=== PATIENT | female | born 1970 | race Two or more races ===

== ENCOUNTER 2018-04-04 11:56 | Emergency (ER) | payer BC ==
[~2018-04-04] VITALS: Ht 160 cm; Wt 81.2 kg
[~2018-04-04 11:56] MED LIST: CYCL10TA2 PO; HYDR-971 PO; NAPR500T8 PO
[2018-04-04 13:10] LABS: CALCIUM 9.6 mg/dL (8.5-10.1); CREATININE 0.8 mg/dL (0.6-1.0); GFR 75.9; POTASSIUM 3.7 mmol/L (3.5-5.1)
[2018-04-04 13:16] LABS: ALBUMIN 3.6 g/dL (3.4-5.0); ALBUMIN/GLOBULIN RATIO 0.8 (1.0-1.7); BASO % 0 % (0-3); EOS # 0.2 x10^3/uL (0.0-0.7); EOS % 2 % (0-3); HEMATOCRIT 40.3 % (36.0-47.0); HEMOGLOBIN 14.2 g/dL (12.0-15.5); LYMPH # 2.5 x10^3/uL (1.0-4.8); LYMPH % 24 % (24-48); MEAN CORPUSCULAR HEMOGLOBIN 29 pg (25-35); MEAN CORPUSCULAR HGB CONC 35 g/dL (31-37); MEAN CORPUSCULAR VOLUME 81 fL (79-100); MONO # 0.5 x10^3/uL (0.0-1.1); MONO % 5 % (0-9); NEUT # 7.1 x10^3uL (1.8-7.7); NEUT % 69 % (31-73); PLATELET COUNT 290 x10^3/uL (140-400); RED BLOOD COUNT 4.95 x10^6/uL (3.50-5.40); RED CELL DISTRIBUTION WIDTH 13.8 % (11.5-14.5); TOTAL BILIRUBIN 0.9 mg/dL (0.2-1.0); TOTAL PROTEIN 7.9 g/dL (6.4-8.2); WHITE BLOOD COUNT 10.4 x10^3/uL (4.0-11.0)
[2018-04-04 13:19] LABS: BILIRUBIN,URINE NEGATIVE (NEG); CLARITY,URINE CLEAR; COLOR,URINE YELLOW; NITRITE,URINE NEGATIVE (NEG); PH,URINE 5.5; PROTEIN,URINE NEGATIVE (NEG-TRACE); UROBILINOGEN,URINE 0.2 mg/dL (0.2 mg/dL)
[2018-04-04] MEDS ORDERED: CONTRAST GIVEN. MC PRN (13:30)
[2018-04-04 13:37] LABS: SQUAMOUS EPITHELIAL CELL,UR MOD /LPF
[2018-04-04 13:38] LABS: BACTERIA,URINE FEW /HPF (0-FEW); RBC,URINE 0 /HPF (0-2)
[2018-04-04] MEDS ORDERED: IOHEXOL 300 MG/ML 100ML VIAL. IV ONE (13:45)
--- NOTE | 2018-04-04 14:17 | RAD ---
EXAM: Abdomen and pelvis CT with intravenous contrast. HISTORY: Pelvic pain. Uterine fibroids. TECHNIQUE: Computed tomographic images of the abdomen and pelvis were obtained following the administration of 75 cc Omnipaque 300 intravenous contrast. Multiplanar reformatting was performed. *One or more of the following individualized dose reduction techniques were utilized for this examination: 1. Automated exposure control. 2. Adjustment of the mA and/or kV according to patient size. 3. Use of iterative reconstruction technique. COMPARISON: None. FINDINGS: Evaluation of the lower thorax demonstrates posterior dependent and basilar atelectasis. No hepatic lesion is seen. The gallbladder is surgically absent. There is a calcification along the pancreatic tail, likely vascular in etiology. The pancreas is otherwise unremarkable. The spleen, adrenal glands and kidneys are unremarkable. There is no appendicitis. There is no bowel obstruction. The uterus is retroverted and prominent in size. No discrete uterine lesion is seen. There is no lymphadenopathy. There is no suspicious osseous lesion. IMPRESSION: 1. No acute abdominal or pelvic finding. 2. Note is made that the uterus is prominent in size. Pelvic sonography may be more useful to assess for the reported history of uterine fibroids. Electronically signed by: Linh Macias MD (04/04/2018 2:14 PM) [facility]
--- NOTE | 2018-04-04 14:50 | RAD ---
Examination: CT soft tissue neck with IV contrast HISTORY: History of neck masses seen on ultrasound COMPARISON: None available Technique: Axial CT images of the soft tissue neck were performed with IV contrast. Coronal and sagittal reformats are performed Exposure: One or more of the following individualized dose reduction techniques were utilized for this examination: 1. Automated exposure control 2. Adjustment of the mA and/or kV according to patient size 3. Use of iterative reconstruction technique FINDINGS: The visualized intracranial portion grossly appears unremarkable. The visualized orbital globes appear intact. The visualized bilateral parotid glands demonstrates small subcentimeter lymph nodes within. The parapharyngeal spaces are maintained. The visualized submandibular glands, masticators spaces grossly appears unremarkable. No radiologically significant cervical lymphadenopathy identified. Small subcentimeter cervical lymph nodes identified at the level 2, level 3 region. The visualized vallecula, piriform sinuses grossly appears unremarkable visualized vocal cords appear unremarkable. There is a hypodensity identified in the right lower thyroid gland measuring 1.1 cm. The apical lungs are clear. IMPRESSION: 1. Small subcentimeter nodules identified in the bilateral parotid glands anteriorly probably lymph nodes. 2. 1.1 cm hypodensity identified in the anterior aspect of the right lobe of thyroid gland could be a nodule. Recommend ultrasound thyroid for further evaluation. Electronically signed by: Trino Jacobs MD (04/04/2018 2:47 PM) [id number]
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
[2018-04-04 15:35] VITALS: BP 122/69
== END 2018-04-04 15:58 | disposition home or self-care (01) ==
LOC: ER 11:56
DX: E04.1 Nontoxic single thyroid nodule (principal); Z90.49 Acquired absence of other specified parts of digestive tract
CPT/HCPCS: 36415; 70491; 74177; 80053; 81001; 81025; 85025; 99285; Q9967

== ENCOUNTER → 2018-05-24 | Outpatient (CLI) | payer BC ==
[~2018-05-24] MED LIST changes: +HYDR-3164 PO; -HYDR-971 PO
--- NOTE | 2018-05-24 16:32 | RAD ---
Thyroid sonogram Clinical indications: Thyroid nodule seen on CT study. FINDINGS: The longitudinal and AP and transverse dimensions of the right lobe are 4.3 cm and 1.6 cm and 1.5 cm respectively. There is a small heterogeneous hypoechoic nodule of the inferior aspect of the right lobe measuring 10 mm in size. No calcifications are seen within it. The isthmus measures 2.3 mm in thickness. The longitudinal and AP and transverse dimensions of the left lobe are 4.3 cm and 1.3 cm and 1.3 cm respectively. No left lobe thyroid nodule is evident. IMPRESSION: 10 mm nodule of the right lobe. This is a ACR TI lesion 4. Recommend a six-month follow-up sonogram. Electronically signed by: Osiel Andrade MD (05/24/2018 4:29 PM) [facility]
--- NOTE | 2018-05-25 11:35 | RAD ---
DATE: 05/24/2018 EXAM: MAMMO CHEY SCREENING BILATERAL HISTORY: Routine screening COMPARISON: None available This study was interpreted with the benefit of Computerized Aided Detection (CAD). Breast Density: HETERO The breast parenchyma is heterogenously dense, which could reduce sensitivity of mammography. Breast parenchyma level C. FINDINGS: 2-D and 3-D tomosynthesis imaging was performed in CC and MLO projections. There are numerous smooth nodules in both breasts. This pattern is typically due to benign disease such as multiple breast cysts. The largest of these on both sides lies centrally and measure approximately 15 mm. No spiculated mass or architectural distortion is evident. No suspicious microcalcifications are seen. Benign-appearing lymph node type densities are present in the left axilla. IMPRESSION: Numerous smooth bilateral breast nodules are probably cysts. Sonographic evaluation is suggested for confirmation. BI-RADS CATEGORY: 0 INCOMPLETE: NEEDS ADDITIONAL IMAGING EVALUATION AND/OR PRIOR MAMMOGRAMS FOR COMPARISON. RECOMMENDED FOLLOW-UP: ADD ADDITIONAL IMAGING PQRS compliance statement: Patient information was entered into a reminder system with a target due date for the next mammogram. Mammography is a sensitive method for finding small breast cancers, but it does not detect them all and is not a substitute for careful clinical examination. A negative mammogram does not negate a clinically suspicious finding and should not result in delay in biopsying a clinically suspicious abnormality. "Our facility is accredited by the [employer] Mammography Program."
== END | disposition home or self-care (01) ==
LOC: US 12:22
PROVIDERS: ATTEND Family Medicine
DX: Z12.31 Encounter for screening mammogram for malignant neoplasm of breast (principal); E04.1 Nontoxic single thyroid nodule
CPT/HCPCS: 76536; 77063; 77067

== ENCOUNTER → 2018-06-04 | Outpatient (CLI) | payer BC ==
--- NOTE | 2018-06-04 17:24 | RAD ---
CLINICAL INDICATION: EARNESTINE DELANEY, who is 48 years of age, presents for further evaluation of a finding noted on her screening mammographic exam of 05/24/2018 COMPARISON: Prior mammographic imaging dating back to 05/24/2018 TECHNIQUE: Grayscale and color Doppler sonographic evaluation of the bilateral breast ULTRASOUND FINDINGS: Targeted ultrasound of the mammographic area of concern was performed. Right breast: Multiple right breast hypoechoic nodules are seen, the majority of which appear to be simple cysts. Relevant lesions delineated below. 3:00 position, 5 cm from the nipple: A near anechoic mass of irregular margins and internal homogeneous low level echoes is present with parallel orientation and is of oval/round shape. There is no internal vascularity on Doppler interrogation. It demonstrates posterior acoustic enhancement and measures 0.5 x 0.6 x 0.3 cm 9:00 position, 8 cm from the nipple: A near anechoic mass of slightly irregular margins and internal homogeneous low level echoes is present with parallel orientation and is of oval/round shape. There is no internal vascularity on Doppler interrogation. It demonstrates posterior acoustic enhancement and measures 0.4 x 0.3 x 0.5 cm. Left breast: Multiple left breast hypoechoic nodules are seen, the majority of which appear to be simple cysts. Relevant lesions delineated below. 10:00 position, 6 cm from the nipple: A near anechoic mass of slightly irregular margins and internal homogeneous low level echoes is present with parallel orientation and is of oval/round shape. There is no internal vascularity on Doppler interrogation. It demonstrates posterior acoustic enhancement and measures 0.5 x 0.4 x 0.5 cm. IMPRESSION: 1. Bilateral probably benign complex cysts for which short interval imaging is recommended. RECOMMENDATION: In the absence of new clinical symptoms or change in physical exam, short term follow up diagnostic examination is recommended in 6 months to assess for interval stability. BIRADS 3: PROBABLY BENIGN Electronically signed by: Marek Grimes MD (06/04/2018 5:20 PM) [facility]
== END | disposition home or self-care (01) ==
LOC: US 10:19
PROVIDERS: ATTEND Family Medicine
DX: R92.8 Other abnormal and inconclusive findings on diagnostic imaging of breast (principal)
CPT/HCPCS: 76641

== ENCOUNTER 2018-07-17 05:49 | Inpatient (IN) | payer BC ==
[2018-07-17] VITALS (9 sets, daily range): BP systolic 93–115; BP diastolic 46–72
[~2018-07-17] VITALS: Ht 160 cm; Wt 83.5 kg
[2018-07-17 06:46] LABS: BASO # 0.1 x10^3/uL (0.0-0.2); BASO % 1 % (0-3); EOS # 0.6 x10^3/uL (0.0-0.7); EOS % 6 % (0-3); HEMATOCRIT 41.5 % (36.0-47.0); HEMOGLOBIN 14.1 g/dL (12.0-15.5); LYMPH # 2.3 x10^3/uL (1.0-4.8); LYMPH % 24 % (24-48); MEAN CORPUSCULAR HEMOGLOBIN 28 pg (25-35); MEAN CORPUSCULAR HGB CONC 34 g/dL (31-37); MEAN CORPUSCULAR VOLUME 81 fL (79-100); MONO # 0.6 x10^3/uL (0.0-1.1); MONO % 7 % (0-9); NEUT # 6.2 x10^3uL (1.8-7.7); NEUT % 63 % (31-73); PLATELET COUNT 260 x10^3/uL (140-400); RED BLOOD COUNT 5.14 x10^6/uL (3.50-5.40); RED CELL DISTRIBUTION WIDTH 13.9 % (11.5-14.5); WHITE BLOOD COUNT 9.9 x10^3/uL (4.0-11.0)
[2018-07-17] MEDS: IV RINGERS,LACTATED 1000ML 1,000 ML IV SCH ×4 (06:52→19:17)
[2018-07-17 06:54] LABS: BILIRUBIN,URINE NEGATIVE (NEG); CLARITY,URINE CLEAR; COLOR,URINE YELLOW; NITRITE,URINE NEGATIVE (NEG); PH,URINE 5.5; PROTEIN,URINE NEGATIVE (NEG-TRACE); UROBILINOGEN,URINE 0.2 mg/dL (0.2 mg/dL)
[2018-07-17 06:56] LABS: U PREG PATIENT NEGATIVE (NEG)
[2018-07-17] MEDS ORDERED: ONDANSETRON PF 4 MG/2 ML VIAL. IV PRN (07:00)
[2018-07-17] MEDS ORDERED: MORPHINE SULFATE 4 MG/ML VIAL. IV PRN (07:00)
[2018-07-17] MEDS ORDERED: HYDROmorphone 2 MG/ML VIAL IV PRN (07:00)
[2018-07-17] MEDS ORDERED: LIDOCAINE 1% PF 2 ML VIAL. ID PRN (07:00)
[2018-07-17] MEDS ORDERED: fentaNYL PF VIAL 100 MCG/2 ML VIAL IV PRN ×2 (07:00)
[2018-07-17 07:04] LABS: RBC,URINE RARE /HPF (0-2)
[2018-07-17] MEDS ORDERED: METHYLENE BLUE 1% 10 ML VIAL. ONE (07:04)
[2018-07-17] MEDS ORDERED: BUPIVAC MPF-EPI 0.5%-1:200000 30 ML VIAL. ONE (07:04)
[2018-07-17] MEDS ORDERED: LIDOCAINE 1%/EPI 1:100,000 20 ML VIAL. ONE (07:04)
[2018-07-17 07:05] LABS: BACTERIA,URINE FEW /HPF (0-FEW); SQUAMOUS EPITHELIAL CELL,UR FEW /LPF
[2018-07-17] MEDS ORDERED: PROPOFOL 20 ML IV ONE (07:25)
[2018-07-17] MEDS ORDERED: DEXAMETHASONE SOD PHOS 20 MG/5 ML VIAL. ONE (07:25)
[2018-07-17] MEDS ORDERED: KETOROLAC 30 MG/ML INJ FOR OR. INJ ONE (07:25)
[2018-07-17] MEDS ORDERED: fentaNYL PF VIAL 100 MCG/2 ML VIAL ONE (07:25)
[2018-07-17] MEDS ORDERED: LIDOCAINE 2% PF 5 ML VIAL. ONE ×2 (07:25→10:12)
[2018-07-17] MEDS ORDERED: ONDANSETRON PF 4 MG/2 ML VIAL. ONE (07:25)
[2018-07-17] MEDS ORDERED: SEVOFLURANE 61 TO 120 MINUTES. IH ONE (07:25)
[2018-07-17] MEDS ORDERED: MIDAZOLAM HCL/PF 2 MG/2 ML VIAL. ONE (07:33)
[2018-07-17] MEDS ORDERED: FAMOTIDINE 20 MG/2 ML VIAL ONE (07:33)
[2018-07-17] MEDS ORDERED: ROCURONIUM 50 MG/5 ML VIAL. ONE ×2 (09:09→10:46)
[2018-07-17] MEDS ORDERED: ESTROGENS, CONJ VAGINAL CREAM 30GM TUBE. ONE (11:31)
[2018-07-17] MEDS ORDERED: NEOSTIGMINE 10 MG/10 ML VIAL. ONE (11:54)
[2018-07-17] MEDS ORDERED: GLYCOPYRROLATE 1 MG/5 ML VIAL. ONE (11:55)
[2018-07-17] MEDS ORDERED: MORPHINE SULFATE 10 MG/ML VIAL. ONE (11:57)
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
[2018-07-17] MEDS ORDERED: SIMETHICONE 80 MG TAB.CHEW PO PRN (12:30)
[2018-07-17] MEDS ORDERED: NALOXONE 0.4 MG/ML VIAL. IV PRN (12:30)
[2018-07-17] MEDS ORDERED: MAG HYDROX/ALUMINUM HYD/SIMETH 30 ML ORAL.SUSP PO PRN (12:30)
[2018-07-17] MEDS ORDERED: DEXTROSE 50% 25 GM / 50ML DISP.SYRIN. IV PRN (12:30)
[2018-07-17] MEDS ORDERED: ZOLPIDEM 5 MG TABLET. PO PRN (12:30)
[2018-07-17] MEDS ORDERED: diphenhydrAMINE 50 MG/ML VIAL IV PRN (12:30)
[2018-07-17] MEDS ORDERED: diphenhydrAMINE HCL 25 MG CAPSULE PO PRN (12:30)
[2018-07-17] MEDS ORDERED: 0.9 % SODIUM CHLORIDE 10 ML DISP.SYRIN. IV PRN (12:30)
[2018-07-17] MEDS ORDERED: CALCIUM CARBONATE 500 MG TAB.CHEW PO PRN (12:30)
--- NOTE | 2018-07-17 12:47 | PDOC ---
BRIEF OPERATIVE NOTE Date: Jul 17, 2018 Pre-Op Diagnosis CPP AUB Leiomyomata Post-Op Diagnosis Same Procedure Performed TVH converted to LAVH converted to HELENA ;BSO enterotomy repair Surgeon Eulogio Whiteside Anesthesia Type: General Blood Loss 300cc Specimens Obtained uterus Tubes and ovaries Findings Dictated Complications Enterotomy CRISTIANO MENDIOLA MD Jul 17, 2018 12:47
[2018-07-17] MEDS: HYDROmorphone 12mg/30ml PCA 30 ML IV PRN (13:17)
--- NOTE | 2018-07-17 13:36 | OP ---
DATE OF SURGERY: 07/17/2018 PREOPERATIVE DIAGNOSES: Chronic pelvic pain, symptomatic leiomyomata, abnormal uterine bleeding. POSTOPERATIVE DIAGNOSES: 1. Chronic pelvic pain, symptomatic leiomyomata, abnormal uterine bleeding. 2. Obliteration of posterior cul-de-sac. PROCEDURE: 1. Total vaginal hysterectomy converted to a laparoscopic assisted vaginal hysterectomy and converted to a total abdominal hysterectomy with bilateral salpingo-oophorectomy. 2. Cystoscopy done by Dr. Whiteside. 3. Exploration and ileostomy done by Dr. Rey Ragland. 4. Intravenous methylene blue for assessment of ureters by Dr. Tamir Whiteside. 5. Repair of incidental rectal injury by Martin Krishnan. 6. Sigmoidoscopy by Dr. Ragland. SURGEON: Martin Krishnan MD. SOFT HAT BINDER: Tamir Whiteside MD. INTRAOPERATIVE CONSULTATION AND PROCEDURE: Rey Ragland MD. SPECIMENS: Uterus, tubes, and ovaries. ESTIMATED BLOOD LOSS: 300 mL. FLUIDS: Crystalloids. COMPLICATIONS: Incidental rectal injury. CONDITION: Stable. DESCRIPTION OF PROCEDURE: Risks, benefits, indications and alternatives discussed in detail with the patient and the patient's family. The patient was brought to the OR theater, placed in dorsal lithotomy position in Douglas stirrups. After adequate general anesthesia, the patient prepped and draped in usual sterile manner. Exam under anesthesia was performed. The uterus was mobile, globular in nature, no adnexal masses appreciated and no pelvic masses appreciated. Posterior weighted speculum was placed in the vaginal vault. Cervix grasped with a single tooth tenaculum. Cervix was infiltrated with 0.5% Marcaine with epinephrine. A circumferential incision was made on the cervix. Posterior cul-de-sac was attempted to enter sharply with Guillen scissors, dissecting the area with the Guillen scissors. There was an incidental injury of the rectum was identified. The injury was immediately repaired. The corners of the injury were approximately 1.5 cm in length, was reapproximated with 3-0 Vicryl in a running manner, imbricated with 3-0 Vicryl in a vertical mattress fashion. On digital exam, no further injuries or enterotomies were appreciated. Dr. Whiteside also examined the patient's rectum, however, did not feel any other risk for injuries in the rectum during his exam. Attention was then turned to the anterior lip of the cervix. The pubovesical cervical fascia was both bluntly and sharply off for the underlying uterus. Anterior cul-de-sac was entered sharply with Metzenbaum scissors. Curved [place] was placed in the space to displace the bladder superior. The uterosacral ligaments were clamped, cut and tied bilaterally. There were still some areas of concern with the posterior cul-de-sac. Therefore, this area stayed well away from. We have to taken down the cardinal ligaments bilaterally and was felt it would be best served to visualize the posterior cul-de-sac from laparoscopic view to assist in finding the space between the rectum and the posterior lower uterine segment and cervix. After placing the patient in supine position and placing an Asepto bulb in the vagina to help keep the pneumoperitoneum in place. A small infraumbilical incision was made vertically with a scalpel. Through this, a Veress needle was placed. Pneumoperitoneum was created. Two lateral 5 mm trocars were also placed as well as a 5 mm trocar in the infraumbilical incision. The intestines appeared normal. The uterus was globular and appeared as I felt on bimanual exam. First, the left infundibulopelvic ligament was taken down with EnSeal clamp, cut, cautery device. This was taken down to the level of the cardinal ligaments. This was also done on the opposite side after making suprapubic incision for another 5 mm trocar to be placed and had previously looked like the sigmoid colon down to the area of the rectum before the peritoneal reflection appeared to be adhered significantly to the posterior aspect of the lower uterine segment. A single tooth tenaculum was placed through the suprapubic incision, used to grasp the uterus and to give countertraction to attempt to dissect the sigmoid colon and the rectum off of the lower uterine segment. This was done approximately 3 cm, taken it off the lower uterine segment, was down to approximately the level of the cardinal ligaments. At this time, I felt General Surgery consult would be in place. Dr. Ragland was able to be summoned and he quickly came to consult on my patient and felt that he would attempt to do this laparoscopically. After sharply attempting laparoscopically, which he will dictate that aspect of the procedure, it was felt at this time to convert this procedure to open, which we did. After Dr. Ragland had dissected the sigmoid and rectum off the lower uterine segment and released the obliterated cul-de-sac, the remaining of the hysterectomy was performed except reapproximating the vaginal cuff. The uterus, tubes, and ovaries were handed off the operative field. The remaining of the procedure with Dr. Ragland and the sigmoidoscopy was performed. There were some bubbles seen on filling the rectum and sigmoid with air with the sigmoidoscope. However, we were not able to find a specific sizable opening on palpation or visualization and a diverting ileostomy was recommended by Dr. Ragland and he will also dictate that aspect of the surgery. The vaginal cuff was closed. The vaginal vault was packed with Premarin and vaginal packing. Dr. Whiteside did a cystoscopy, which he will dictate also. The ureters were seen with jets bilaterally as well as the ureters were visualized through the abdominal procedure. Sponge, needle and instrument counts were correct x 2 per nursing staff. The patient went to postop anesthesia recovery in stable condition. MARTIN KRISHNAN MD DR: WANG/bradley JOB#: [id number] / [id number]
[2018-07-17] MEDS: PROCHLORPERAZINE 10 MG/2 ML VIAL. IV PRN ×2 (13:48→14:27)
[2018-07-17] MEDS: ceFAZolin SODIUM 1 GM in IV DEXTROSE 5% 50 ML IV SCH ×2 (15:25→20:05)
--- NOTE | 2018-07-17 15:30 | NUR ---
Pt arrived to unit by bed at 1440, from PACU, report received from SABI Blanchard. Admission Dx s/p total hysterectomy, enterotomy with temporary diverting ileostomy and cystoscopy with Stokes placement. Bed in low position, call light in reach, allergies verified, family at bedside. Pt very drowsy but awakes to light touch, frequent vital signs initiated, IVFs and [employer] infusing. Ileostomy to RUQ with plastic bridge and one piece flat, small amount of green drainage present in bag. ALDA drain to LLQ patent with sanguineous drainage. Midline dressing CDI, Stokes draining clear green urine. Admission assessment in progress.
--- NOTE | 2018-07-17 17:42 | PDOC4 ---
OPERATIVE NOTE Date: Date: Jul 17, 2018 Pre-Op Diagnosis: Fibroid uterus Post-Op Diagnosis: same, rectal injury (inherent to procedure) Procedure Performed: Laparoscopic converted to open lysis of adhesions, rigid sigmoidoscopy, protecting loop ileostomy Surgeon: Alec Romano Assistants: Dr. Krishnan, Dr. Whiteside Anesthesia Type: GETA Blood Loss: 100 Specimans Obtained: none Findings: air noted by rigid sigmoidoscopy on anterior right portion of rectum, below peritoneal reflection, obliteration of posterior cul de sac Complications: none Operative Note: Dr. Krishnan requested general surgery consultation. Upon arrival, patient was in a stable condition, under appropriate anesthesia, undergoing laparoscopic surgery by Dr. Krishnan and Dr. Whiteside. A previous rectal was reported and noted repair during vaginal portion. Upon laparoscopic visualization the uterus had nearly completely being removed, but an attached portion noted posterior, with obliteration of this plane. This area was very friable and difficult to identify surgical planes. Initial laparoscopic dissected was difficult and an open procedure was appropriate, after discussion with other surgeons. Lower midline incision made with cautery. Fascia entered in midline. Sigmoid colon and rectum very difficult to delineate secondary to chronic scarring. Left ureter dissected out and noted to be intact by Jane's sign. Hysterectomy was completed by gynecologists. Rigid sigmoidoscopy then performed to identify any rectal injury. This demonstrated air leak right and anterior at area of previous repair. An obvious defect is not seen. However, given the friable nature of tissue and to avoid rectal leak or rectovaginal fistula, a protecting loop ileostomy is most appropriate. No devitalized tissue required debridement. 19 ALDA drain placed in area and brought out LLQ and secured with 3 0 nylon. Copious irrigation. No evidence of bleeding or other pathology noted. Terminal ileum brought through RUQ rectus muscle over ostomy bridge. Fascia closed with 0 PDS looped. Skin repaired with flor. Dressing placed. Ileostomy matured with 3 0 chromic. Noted to be patent to level of fascia. Ostomy device placed. Patient tolerated procedure well and transferred to PACU in stable condition. Wound class is dirty, 4. JACKSON ROMANO MD Jul 17, 2018 17:42
[2018-07-17] MEDS: DOCUSATE SODIUM 100 MG CAPSULE. PO SCH (20:52)
[2018-07-17] MEDS: SENNOSIDES/DOCUSATE 8.6/50MG TABLET. PO SCH (20:52)
[2018-07-18] MEDS: ceFAZolin SODIUM 1 GM in IV DEXTROSE 5% 50 ML IV SCH (01:57)
[2018-07-18 03:00] VITALS: BP 98/54
[2018-07-18 05:08] LABS: CALCIUM 8.4 mg/dL (8.5-10.1); CREATININE 0.7 mg/dL (0.6-1.0); GFR 88.6; POTASSIUM 3.8 mmol/L (3.5-5.1)
[2018-07-18 07:00] VITALS: BP 95/52
[2018-07-18] MEDS: DOCUSATE SODIUM 100 MG CAPSULE. PO SCH ×2 (09:00→21:00)
[2018-07-18] MEDS: SENNOSIDES/DOCUSATE 8.6/50MG TABLET. PO SCH ×2 (09:00→21:00)
[2018-07-18] MEDS: IV RINGERS,LACTATED 1000ML 1,000 ML IV SCH ×2 (09:05→13:12)
[2018-07-18 11:00] VITALS: BP 92/49
--- NOTE | 2018-07-18 13:23 | NUR ---
SW following for discharge planning. Discussed with RN. Pt is from home with family and is Divehi speaking only. RN advised no SW needs at this time. SW will continue to follow.
[2018-07-18 15:00] VITALS: BP 103/61
--- NOTE | 2018-07-18 15:00 | PDOC ---
SURGICAL PROGRESS NOTE Subjective Pt with c/o mild incisional pain, but doing well otherwise Vital Signs Vital Signs Date Time Temp Pulse Resp B/P (MAP) Pulse Ox O2 Delivery O2 Flow Rate FiO2 07/18/18 11:00 98.1 84 18 92/49 (63) 94 Room Air 98.1 07/17/18 20:00 2.0 I&O Intake and Output 07/18/18 07:01 Intake Total 2450 ml Output Total 940 ml Balance 1510 ml IV Total 2450 ml Output Urine Total 520 ml Stool Total 40 ml Drainage Total 80 ml Estimated Blood Loss 300 ml General: Alert, Oriented X3, Cooperative, No acute distress Abdomen: Soft, No tenderness, Other (ostomy viable and fxn) Labs Laboratory Tests Test 07/17/18 06:04 07/17/18 06:20 07/18/18 03:50 White Blood Count 9.9 x10^3/uL (4.0-11.0) Red Blood Count 5.14 x10^6/uL (3.50-5.40) Hemoglobin 14.1 g/dL (12.0-15.5) Hematocrit 41.5 % (36.0-47.0) 32.6 % (36.0-47.0) Mean Corpuscular Volume 81 fL (79-100) Mean Corpuscular Hemoglobin 28 pg (25-35) Mean Corpuscular Hemoglobin Concent 34 g/dL (31-37) Red Cell Distribution Width 13.9 % (11.5-14.5) Platelet Count 260 x10^3/uL (140-400) Neutrophils (%) (Auto) 63 % (31-73) Lymphocytes (%) (Auto) 24 % (24-48) Monocytes (%) (Auto) 7 % (0-9) Eosinophils (%) (Auto) 6 % (0-3) Basophils (%) (Auto) 1 % (0-3) Neutrophils # (Auto) 6.2 x10^3uL (1.8-7.7) Lymphocytes # (Auto) 2.3 x10^3/uL (1.0-4.8) Monocytes # (Auto) 0.6 x10^3/uL (0.0-1.1) Eosinophils # (Auto) 0.6 x10^3/uL (0.0-0.7) Basophils # (Auto) 0.1 x10^3/uL (0.0-0.2) Urine Collection Type Unknown Urine Color Yellow Urine Clarity Clear Urine pH 5.5 Urine Specific [place] 1.020 Urine Protein Negative mg/dL (NEG-TRACE) Urine Glucose (UA) Negative mg/dL (NEG) Urine Ketones (Stick) Negative mg/dL (NEG) Urine Blood Negative (NEG) Urine Nitrite Negative (NEG) Urine Bilirubin Negative (NEG) Urine Urobilinogen Dipstick 0.2 mg/dL (0.2 mg/dL) Urine Leukocyte Esterase Negative (NEG) Urine RBC Rare /HPF (0-2) Urine WBC 1-4 /HPF (0-4) Urine Squamous Epithelial Cells Few /LPF Urine Bacteria Few /HPF (0-FEW) Urine Mucus Slight /LPF Urine Test Negative (NEG) Sodium Level 138 mmol/L (136-145) Potassium Level 3.8 mmol/L (3.5-5.1) Chloride Level 105 mmol/L (98-107) Carbon Dioxide Level 25 mmol/L (21-32) Anion Gap 8 (6-14) Blood Urea Nitrogen 17 mg/dL (7-20) Creatinine 0.7 mg/dL (0.6-1.0) Estimated GFR (Cockcroft-Gault) 88.6 Glucose Level 113 mg/dL (70-99) Calcium Level 8.4 mg/dL (8.5-10.1) Laboratory Tests Test 07/18/18 03:50 Hematocrit 32.6 % (36.0-47.0) Sodium Level 138 mmol/L (136-145) Potassium Level 3.8 mmol/L (3.5-5.1) Chloride Level 105 mmol/L (98-107) Carbon Dioxide Level 25 mmol/L (21-32) Anion Gap 8 (6-14) Blood Urea Nitrogen 17 mg/dL (7-20) Creatinine 0.7 mg/dL (0.6-1.0) Estimated GFR (Cockcroft-Gault) 88.6 Glucose Level 113 mg/dL (70-99) Calcium Level 8.4 mg/dL (8.5-10.1) Assessment/Plan s/p xlap d/w pt and pt's family ADAT, pain control elective ileostomy takedown JACKSON ROMANO MD Jul 18, 2018 14:59
[2018-07-18 19:00] VITALS: BP 113/67
--- NOTE | 2018-07-18 20:57 | PDOC ---
SURGICAL PROGRESS NOTE Subjective Doing well Discussed surgery in detail Vital Signs Vital Signs Date Time Temp Pulse Resp B/P (MAP) Pulse Ox O2 Delivery O2 Flow Rate FiO2 07/18/18 15:00 98.4 86 18 103/61 (75) 95 Room Air 98.4 07/17/18 20:00 2.0 I&O Intake and Output 07/18/18 07:01 Intake Total 2450 ml Output Total 940 ml Balance 1510 ml IV Total 2450 ml Output Urine Total 520 ml Stool Total 40 ml Drainage Total 80 ml Estimated Blood Loss 300 ml PATIENT HAS A [place]: Yes General: Alert, Oriented X3, Cooperative, No acute distress HEENT: Mucous membr. moist/pink Abdomen: Soft, Other (Dressing CDI) Extremities: No clubbing, No cyanosis, No edema, Normal pulses, No tenderness/ swelling Skin: No rashes, No breakdown, No significant lesion Labs Laboratory Tests Test 07/17/18 06:04 07/17/18 06:20 07/18/18 03:50 White Blood Count 9.9 x10^3/uL (4.0-11.0) Red Blood Count 5.14 x10^6/uL (3.50-5.40) Hemoglobin 14.1 g/dL (12.0-15.5) Hematocrit 41.5 % (36.0-47.0) 32.6 % (36.0-47.0) Mean Corpuscular Volume 81 fL (79-100) Mean Corpuscular Hemoglobin 28 pg (25-35) Mean Corpuscular Hemoglobin Concent 34 g/dL (31-37) Red Cell Distribution Width 13.9 % (11.5-14.5) Platelet Count 260 x10^3/uL (140-400) Neutrophils (%) (Auto) 63 % (31-73) Lymphocytes (%) (Auto) 24 % (24-48) Monocytes (%) (Auto) 7 % (0-9) Eosinophils (%) (Auto) 6 % (0-3) Basophils (%) (Auto) 1 % (0-3) Neutrophils # (Auto) 6.2 x10^3uL (1.8-7.7) Lymphocytes # (Auto) 2.3 x10^3/uL (1.0-4.8) Monocytes # (Auto) 0.6 x10^3/uL (0.0-1.1) Eosinophils # (Auto) 0.6 x10^3/uL (0.0-0.7) Basophils # (Auto) 0.1 x10^3/uL (0.0-0.2) Urine Collection Type Unknown Urine Color Yellow Urine Clarity Clear Urine pH 5.5 Urine Specific [place] 1.020 Urine Protein Negative mg/dL (NEG-TRACE) Urine Glucose (UA) Negative mg/dL (NEG) Urine Ketones (Stick) Negative mg/dL (NEG) Urine Blood Negative (NEG) Urine Nitrite Negative (NEG) Urine Bilirubin Negative (NEG) Urine Urobilinogen Dipstick 0.2 mg/dL (0.2 mg/dL) Urine Leukocyte Esterase Negative (NEG) Urine RBC Rare /HPF (0-2) Urine WBC 1-4 /HPF (0-4) Urine Squamous Epithelial Cells Few /LPF Urine Bacteria Few /HPF (0-FEW) Urine Mucus Slight /LPF Urine Test Negative (NEG) Sodium Level 138 mmol/L (136-145) Potassium Level 3.8 mmol/L (3.5-5.1) Chloride Level 105 mmol/L (98-107) Carbon Dioxide Level 25 mmol/L (21-32) Anion Gap 8 (6-14) Blood Urea Nitrogen 17 mg/dL (7-20) Creatinine 0.7 mg/dL (0.6-1.0) Estimated GFR (Cockcroft-Gault) 88.6 Glucose Level 113 mg/dL (70-99) Calcium Level 8.4 mg/dL (8.5-10.1) Laboratory Tests Test 07/18/18 03:50 Hematocrit 32.6 % (36.0-47.0) Sodium Level 138 mmol/L (136-145) Potassium Level 3.8 mmol/L (3.5-5.1) Chloride Level 105 mmol/L (98-107) Carbon Dioxide Level 25 mmol/L (21-32) Anion Gap 8 (6-14) Blood Urea Nitrogen 17 mg/dL (7-20) Creatinine 0.7 mg/dL (0.6-1.0) Estimated GFR (Cockcroft-Gault) 88.6 Glucose Level 113 mg/dL (70-99) Calcium Level 8.4 mg/dL (8.5-10.1) Problem List POD 1 DC [place] when ambulating and vag pack Assessment/Plan FU cbc in AM CRISTIANO MENDIOLA MD Jul 18, 2018 20:57
[2018-07-18] MEDS: ENOXAPARIN 40 MG/0.4 ML SYRINGE. SQ SCH (21:00)
[2018-07-18 23:00] VITALS: BP 97/50
--- NOTE | 2018-07-18 23:16 | CONS ---
DATE OF CONSULTATION: 07/18/2018 REASON FOR CONSULTATION: Morbid obesity and pelvic pain management. HISTORY OF PRESENT ILLNESS AND HOSPITAL COURSE: This patient is a 48-year-old female who came in for elective hysterectomy and bilateral oophorectomy due to persistent pelvic pain and dysfunctional uterine bleeding. She was taken to the OR by Dr. Krishnan and had abdominal hysterectomy done. During surgery, it was noted that bowel perforation occurred due to adhesions and scar tissue in the posterior fornix. Because of this issue, the patient had further surgery requiring a diverting ileostomy. She is postop day #1 and doing well with drainage noted in her ileostomy bag. The patient is tolerating clear liquids. She does complain of incisional pain, but has adequate pain control ordered. Please see operative note for specific surgery details. PAST MEDICAL HISTORY: Significant for high cholesterol, fibroid uterus, and thyroid nodule. PAST SURGICAL HISTORY: Significant for laparoscopic cholecystectomy. FAMILY HISTORY: Significant for renal failure in mother who is . Heart disease and heart attack in father who is . Accident in brother who is at age 33, but did have diabetes. A sister who is after appendicitis and significant liver disease. SOCIAL HISTORY: The patient has never smoked. She does not use alcohol. The patient speaks mostly [place]er, but does understand Lao. ALLERGIES: The patient has no known drug allergies. REVIEW OF SYSTEMS: Negative except for admission issues with dysfunctional uterine bleeding and chronic pelvic pain. PHYSICAL EXAMINATION: GENERAL: This is a well-nourished, moderately obese female, in no apparent distress. HEENT: Benign. NECK: Supple. CARDIAC: Regular rate and rhythm. LUNGS: Clear. ABDOMEN: Soft. Ileostomy bag on the right lower quadrant noted. EXTREMITIES: 2+ pulses, 1+ edema. NEUROLOGIC: Showed no unilateral findings. ASSESSMENT: 1. Status post total abdominal hysterectomy and bilateral oophorectomy. 2. Bowel perforation with diverting ileostomy. PLAN: To continue to monitor the patient's fluid status and hemoglobin and continue with routine postop care. KATHY STILL MD DR: BLANCA/bradley JOB#: [id number] / [id number]
[2018-07-18] MEDS: HYDROmorphone 12mg/30ml PCA 30 ML IV PRN (23:31)
[2018-07-19 03:00] VITALS: BP 136/63
[2018-07-19] MEDS: ONDANSETRON PF 4 MG/2 ML VIAL. IV PRN (04:59)
[2018-07-19 05:20] LABS: BASO # 0.1 x10^3/uL (0.0-0.2); BASO % 1 % (0-3); EOS # 0.1 x10^3/uL (0.0-0.7); EOS % 1 % (0-3); HEMATOCRIT 32.5 % (36.0-47.0); HEMOGLOBIN 10.7 g/dL (12.0-15.5); LYMPH # 1.5 x10^3/uL (1.0-4.8); LYMPH % 11 % (24-48); MEAN CORPUSCULAR HEMOGLOBIN 27 pg (25-35); MEAN CORPUSCULAR HGB CONC 33 g/dL (31-37); MEAN CORPUSCULAR VOLUME 82 fL (79-100); MONO % 8 % (0-9); NEUT # 10.3 x10^3uL (1.8-7.7); NEUT % 79 % (31-73); PLATELET COUNT 208 x10^3/uL (140-400); RED BLOOD COUNT 3.96 x10^6/uL (3.50-5.40); RED CELL DISTRIBUTION WIDTH 14.2 % (11.5-14.5)
--- NOTE | 2018-07-19 05:28 | NUR ---
2100: Pt. refused colace and senna. Already having bowel output through ileostomy.
[2018-07-19 06:30] VITALS: BP 127/61
[2018-07-19] MEDS: PROCHLORPERAZINE 10 MG/2 ML VIAL. IV PRN (07:47)
[2018-07-19] MEDS: IV RINGERS,LACTATED 1000ML 1,000 ML IV SCH ×3 (07:48→17:00)
[2018-07-19] MEDS: DOCUSATE SODIUM 100 MG CAPSULE. PO SCH ×2 (09:00→19:54)
[2018-07-19] MEDS: SENNOSIDES/DOCUSATE 8.6/50MG TABLET. PO SCH ×2 (09:00→19:55)
[2018-07-19 11:00] VITALS: BP 105/54
--- NOTE | 2018-07-19 12:02 | PDOC ---
PROGRESS NOTES Subjective Subjective Patient C/O nausea today and continued abd pain. Patient still not out of bed. Ileostomy output noted Objective Objective Vital Signs Date Time Temp Pulse Resp B/P (MAP) Pulse Ox O2 Delivery O2 Flow Rate FiO2 07/19/18 11:00 98.0 90 18 105/54 (71) 94 Room Air 98.0 07/17/18 20:00 2.0 Intake and Output 07/19/18 07:01 Intake Total 1850 ml Output Total 3180 ml Balance -1330 ml Intake Oral 1850 ml Output Urine Total 2500 ml Stool Total 650 ml Drainage Total 30 ml Physical Exam Abdomen: Other (No BS, Tender to palp) Heart: Regular rate Extremities: No edema General: Alert Assessment Assessment 1. Status post total abdominal hysterectomy and bilateral oophorectomy POD#2 2. Bowel perforation with diverting ileostomy. 3. Ileus Plan Plan of Care Increase activity NPO diet - per CUSTOMER SERVICE PROFESSIONAL and surgery KUB in AM if not improved follow cbc and fluid balance D/C Stokes when on with CUSTOMER SERVICE PROFESSIONAL and surgery Consider TPN if extended ileus Comment Review of Relevant I have reviewed the following items niko (where applicable) has been applied. Labs Laboratory Tests Test 07/18/18 03:50 07/19/18 04:40 Hematocrit 32.6 % (36.0-47.0) 32.5 % (36.0-47.0) Sodium Level 138 mmol/L (136-145) Potassium Level 3.8 mmol/L (3.5-5.1) Chloride Level 105 mmol/L (98-107) Carbon Dioxide Level 25 mmol/L (21-32) Anion Gap 8 (6-14) Blood Urea Nitrogen 17 mg/dL (7-20) Creatinine 0.7 mg/dL (0.6-1.0) Estimated GFR (Cockcroft-Gault) 88.6 Glucose Level 113 mg/dL (70-99) Calcium Level 8.4 mg/dL (8.5-10.1) White Blood Count 13.0 x10^3/uL (4.0-11.0) Red Blood Count 3.96 x10^6/uL (3.50-5.40) Hemoglobin 10.7 g/dL (12.0-15.5) Mean Corpuscular Volume 82 fL (79-100) Mean Corpuscular Hemoglobin 27 pg (25-35) Mean Corpuscular Hemoglobin Concent 33 g/dL (31-37) Red Cell Distribution Width 14.2 % (11.5-14.5) Platelet Count 208 x10^3/uL (140-400) Neutrophils (%) (Auto) 79 % (31-73) Lymphocytes (%) (Auto) 11 % (24-48) Monocytes (%) (Auto) 8 % (0-9) Eosinophils (%) (Auto) 1 % (0-3) Basophils (%) (Auto) 1 % (0-3) Neutrophils # (Auto) 10.3 x10^3uL (1.8-7.7) Lymphocytes # (Auto) 1.5 x10^3/uL (1.0-4.8) Monocytes # (Auto) 1.0 x10^3/uL (0.0-1.1) Eosinophils # (Auto) 0.1 x10^3/uL (0.0-0.7) Basophils # (Auto) 0.1 x10^3/uL (0.0-0.2) Laboratory Tests Test 07/19/18 04:40 White Blood Count 13.0 x10^3/uL (4.0-11.0) Red Blood Count 3.96 x10^6/uL (3.50-5.40) Hemoglobin 10.7 g/dL (12.0-15.5) Hematocrit 32.5 % (36.0-47.0) Mean Corpuscular Volume 82 fL (79-100) Mean Corpuscular Hemoglobin 27 pg (25-35) Mean Corpuscular Hemoglobin Concent 33 g/dL (31-37) Red Cell Distribution Width 14.2 % (11.5-14.5) Platelet Count 208 x10^3/uL (140-400) Neutrophils (%) (Auto) 79 % (31-73) Lymphocytes (%) (Auto) 11 % (24-48) Monocytes (%) (Auto) 8 % (0-9) Eosinophils (%) (Auto) 1 % (0-3) Basophils (%) (Auto) 1 % (0-3) Neutrophils # (Auto) 10.3 x10^3uL (1.8-7.7) Lymphocytes # (Auto) 1.5 x10^3/uL (1.0-4.8) Monocytes # (Auto) 1.0 x10^3/uL (0.0-1.1) Eosinophils # (Auto) 0.1 x10^3/uL (0.0-0.7) Basophils # (Auto) 0.1 x10^3/uL (0.0-0.2) Medications Current Medications Ondansetron HCl (Zofran) 4 mg PRN Q6HRS PRN IV NAUSEA/VOMITING; Start 07/17/18 at 07:00; Stop 07/17/18 at 18:00; Status DC Fentanyl Citrate (Fentanyl 2ml Vial) 25 mcg PRN Q5MIN PRN IV MILD PAIN; Start 07/17/18 at 07:00; Stop 07/17/18 at 18:00; Status DC Fentanyl Citrate (Fentanyl 2ml Vial) 50 mcg PRN Q5MIN PRN IV MODERATE TO SEVERE PAIN; Start 07/17/18 at 07:00; Stop 07/17/18 at 18:00; Status DC Morphine Sulfate (Morphine Sulfate) 1 mg PRN Q10MIN PRN IV SEVERE PAIN; Start 07/17/18 at 07:00; Stop 07/17/18 at 18:00; Status DC Ringer's Solution 1,000 ml @ 30 mls/hr Q24H IV Last administered on 07/17/18at 12:59; Start 07/17/18 at 07:00; Stop 07/17/18 at 18:59; Status DC Lidocaine HCl (Xylocaine-Mpf 1% 2ml Vial) 2 ml PRN 1X PRN ID IV START; Start at 07:00; Stop 07/17/18 at 18:00; Status DC Hydromorphone HCl (Dilaudid) 0.5 mg PRN Q10MIN PRN IV SEV PAIN, Second choice; Start 07/17/18 at 07:00; Stop 07/17/18 at 18:00; Status DC Prochlorperazine Edisylate (Compazine) 5 mg PACU PRN PRN IV NAUSEA, MRX1 Last administered on 07/17/18at 14:27; Start 07/17/18 at 07:00; Stop 07/17/18 at 18:00 ; Status DC Cefazolin Sodium/ Dextrose 50 ml @ 100 mls/hr 1X ONCE IV Last administered on 07/17/18at 08:07; Start 07/17/18 at 06:00; Stop 07/17/18 at 06:29; Status DC Bupivacaine HCl/ Epinephrine Bitart (Sensorcain-Mpf Epi 0.5%-1:[id number]) 30 ml STK -MED ONCE .ROUTE Last administered on 07/17/18at 07:40; Start 07/17/18 at 07:04 ; Stop 07/17/18 at 07:07; Status DC Methylene Blue (Methylene Blue) 1 ml STK-MED ONCE .ROUTE ; Start 07/17/18 at 07: 04; Stop 07/17/18 at 07:07; Status DC Lidocaine/ Epinephrine (LIDOCAINE 1%-EPI 1:100,000 Multi-Dose) 20 ml STK-MED ONCE .ROUTE ; Start 07/17/18 at 07:04; Stop 07/17/18 at 07:07; Status DC Fentanyl Citrate (Fentanyl 2ml Vial) 100 mcg STK-MED ONCE .ROUTE ; Start at 07:25; Stop 07/17/18 at 07:28; Status DC Lidocaine HCl (Lidocaine Pf 2% Vial) 5 ml STK-MED ONCE .ROUTE ; Start 07/17/18 at 07:25; Stop 07/17/18 at 07:28; Status DC Propofol 20 ml @ As Directed STK-MED ONCE IV ; Start 07/17/18 at 07:25; Stop at 07:28; Status DC Dexamethasone Sodium Phosphate (Decadron) 20 mg STK-MED ONCE .ROUTE ; Start at 07:25; Stop 07/17/18 at 07:28; Status DC Ondansetron HCl (Zofran) 4 mg STK-MED ONCE .ROUTE ; Start 07/17/18 at 07:25; Stop 07/17/18 at 07:28; Status DC Ketorolac Tromethamine (Toradol For Or Only) 30 mg STK-MED ONCE INJ ; Start at 07:25; Stop 07/17/18 at 07:28; Status DC Sevoflurane (Ultane) 60 ml STK-MED ONCE IH ; Start 07/17/18 at 07:25; Stop 07/17 at 07:28; Status DC Midazolam HCl (Versed) 2 mg STK-MED ONCE .ROUTE ; Start 07/17/18 at 07:33; Stop 07/17/18 at 07:35; Status DC Famotidine (Pepcid Vial) 20 mg STK-MED ONCE .ROUTE ; Start 07/17/18 at 07:33; Stop 07/17/18 at 07:36; Status DC Rocuronium [place] (Zemuron) 50 mg STK-MED ONCE .ROUTE ; Start 07/17/18 at 09:09 ; Stop 07/17/18 at 09:11; Status DC Lidocaine HCl (Lidocaine Pf 2% Vial) 5 ml STK-MED ONCE .ROUTE ; Start 07/17/18 at 10:12; Stop 07/17/18 at 10:15; Status DC Rocuronium [place] (Zemuron) 50 mg STK-MED ONCE .ROUTE ; Start 07/17/18 at 10:46 ; Stop 07/17/18 at 10:48; Status DC Estrogens Conjugated (Premarin) 30 alan STK-MED ONCE .ROUTE Last administered on 07/17/18at 12:48; Start 07/17/18 at 11:31; Stop 07/17/18 at 11:33; Status DC Neostigmine Methylsulfate (Bloxiverz) 10 mg STK-MED ONCE .ROUTE ; Start at 11:54; Stop 07/17/18 at 11:56; Status DC Glycopyrrolate (Robinul) 1 mg STK-MED ONCE .ROUTE ; Start 07/17/18 at 11:55; Stop 07/17/18 at 11:57; Status DC Morphine Sulfate (Morphine Sulfate) 10 mg STK-MED ONCE .ROUTE ; Start 07/17/18 at 11:57; Stop 07/17/18 at 11:59; Status DC Al Hydroxide/Mg Hydroxide (Mylanta Plus Xs) 30 ml PRN Q3HRS PRN PO HEARTBURN / GAS; Start 07/17/18 at 12:30 Calcium Carbonate/ Glycine (Tums) 500 mg PRN Q3HRS PRN PO INDIGESTION; Start at 12:30 Simethicone (Gas-X) 80 mg PRN AFTMEALHC PRN PO GAS / BLOATING; Start 07/17/18 at 12:30 Diphenhydramine HCl (Benadryl) 25 mg PRN Q6HRS PRN PO ITCHING; Start 07/17/18 at 12:30 Diphenhydramine HCl (Benadryl) 25 mg PRN Q6HRS PRN IV ITCHING; Start 07/17/18 at 12:30 Zolpidem Tartrate (Ambien) 5 mg PRN QHS PRN PO INSOMNIA; Start 07/17/18 at 12: 30 Naloxone HCl (Narcan) 0.1 mg PRN Q2MIN PRN IV SEE COMMENTS; Start 07/17/18 at 12:30 Sodium Chloride (Normal Saline Flush) 3 ml QSHIFT PRN IV AFTER MEDS AND BLOOD DRAWS; Start 07/17/18 at 12:30 Dextrose (Dextrose 50%-Water Syringe) 12.5 gm PRN Q15MIN PRN IV SEE COMMENTS; Start 07/17/18 at 12:30 Oxycodone/ Acetaminophen (Percocet 5/325) 1 tab PRN Q4HRS PRN PO MILD PAIN, 1ST CHOICE; Start 07/17/18 at 12:30 Senna/Docusate Sodium (Senna Plus) 1 tab BID PO Last administered on 07/18/18at 09:00; Start 07/17/18 at 21:00 Docusate Sodium (Colace) 100 mg BID PO Last administered on 07/18/18at 09:00; Start 07/17/18 at 21:00 Ondansetron HCl (Zofran) 4 mg PRN Q6HRS PRN IV NAUESA, 1ST CHOICE Last administered on 07/19/18at 04:59; Start 07/17/18 at 12:30 Cefazolin Sodium 1 gm/Dextrose 50 ml @ 100 mls/hr Q6H IV Last administered on 07/18/18at 01:57; Start 07/17/18 at 14:00; Stop 07/18/18 at 02:29; Status DC Hydromorphone HCl 30 ml @ 0 mls/hr CONT PRN PRN IV PER PROTOCOL Last administered on 07/18/18at 23:31; Start 07/17/18 at 12:30 Ringer's Solution 1,000 ml @ 120 mls/hr Q8H20M IV Last administered on at 07:48; Start 07/17/18 at 15:00 Enoxaparin Sodium (Lovenox 40mg Syringe) 40 mg Q24H SQ Last administered on at 21:00; Start 07/18/18 at 21:00 Prochlorperazine Edisylate (Compazine) 10 mg PRN Q6HRS PRN IV NAUSEA/VOMITING Last administered on 07/19/18at 07:47; Start 07/19/18 at 07:30 Active Scripts Active Reported No Known Medications Prior To Admisstion (Info) Each 1 Each DAILY Vitals/I & O Vital Sign - Last 24 Hours 07/18/18 07/18/18 07/18/18 07/18/18 15:00 19:00 20:30 23:00 Temp 98.4 98.3 98.6 98.4 98.3 98.6 Pulse 86 96 68 Resp 18 14 18 B/P (MAP) 103/61 (75) 113/67 (82) 97/50 (66) Pulse Ox 95 95 91 O2 Delivery Room Air Room Air Room Air Room Air 07/18/18 07/19/18 07/19/18 07/19/18 23:31 00:01 03:00 06:30 Temp 98.9 98.2 98.9 98.2 Pulse 95 88 Resp 18 18 16 18 B/P (MAP) 136/63 (87) 127/61 (83) Pulse Ox 93 98 O2 Delivery Room Air Room Air Room Air Room Air 07/19/18 11:00 Temp 98.0 98.0 Pulse 90 Resp 18 B/P (MAP) 105/54 (71) Pulse Ox 94 O2 Delivery Room Air Intake and Output 07/18/18 07/18/18 07/19/18 15:01 23:01 07:01 Intake Total 1000 ml 600 ml 250 ml Output Total 600 ml 730 ml 1850 ml Balance 400 ml -130 ml -1600 ml KATHY STILL MD Jul 19, 2018 12:02
[2018-07-19 12:29] LABS: ALBUMIN 2.5 g/dL (3.4-5.0); ALBUMIN/GLOBULIN RATIO 0.8 (1.0-1.7); CREATININE 0.6 mg/dL (0.6-1.0); GFR 105.8; POTASSIUM 3.8 mmol/L (3.5-5.1); TOTAL BILIRUBIN 0.9 mg/dL (0.2-1.0); TOTAL PROTEIN 5.5 g/dL (6.4-8.2)
--- NOTE | 2018-07-19 12:32 | PDOC ---
SURGICAL PROGRESS NOTE Subjective Pt with some soreness earlier but better now, paramjit PO Vital Signs Vital Signs Date Time Temp Pulse Resp B/P (MAP) Pulse Ox O2 Delivery O2 Flow Rate FiO2 07/19/18 11:00 98.0 90 18 105/54 (71) 94 Room Air 98.0 I&O Intake and Output 07/19/18 07:01 Intake Total 1850 ml Output Total 3180 ml Balance -1330 ml Intake Oral 1850 ml Output Urine Total 2500 ml Stool Total 650 ml Drainage Total 30 ml General: Alert, Oriented X3, Cooperative, No acute distress Abdomen: Soft, No tenderness, Other (ostomy viable and fxn, ALDA with serosang drainage) Labs Laboratory Tests Test 07/18/18 03:50 07/19/18 04:40 Hematocrit 32.6 % (36.0-47.0) 32.5 % (36.0-47.0) Sodium Level 138 mmol/L (136-145) Potassium Level 3.8 mmol/L (3.5-5.1) Chloride Level 105 mmol/L (98-107) Carbon Dioxide Level 25 mmol/L (21-32) Anion Gap 8 (6-14) Blood Urea Nitrogen 17 mg/dL (7-20) Creatinine 0.7 mg/dL (0.6-1.0) Estimated GFR (Cockcroft-Gault) 88.6 Glucose Level 113 mg/dL (70-99) Calcium Level 8.4 mg/dL (8.5-10.1) White Blood Count 13.0 x10^3/uL (4.0-11.0) Red Blood Count 3.96 x10^6/uL (3.50-5.40) Hemoglobin 10.7 g/dL (12.0-15.5) Mean Corpuscular Volume 82 fL (79-100) Mean Corpuscular Hemoglobin 27 pg (25-35) Mean Corpuscular Hemoglobin Concent 33 g/dL (31-37) Red Cell Distribution Width 14.2 % (11.5-14.5) Platelet Count 208 x10^3/uL (140-400) Neutrophils (%) (Auto) 79 % (31-73) Lymphocytes (%) (Auto) 11 % (24-48) Monocytes (%) (Auto) 8 % (0-9) Eosinophils (%) (Auto) 1 % (0-3) Basophils (%) (Auto) 1 % (0-3) Neutrophils # (Auto) 10.3 x10^3uL (1.8-7.7) Lymphocytes # (Auto) 1.5 x10^3/uL (1.0-4.8) Monocytes # (Auto) 1.0 x10^3/uL (0.0-1.1) Eosinophils # (Auto) 0.1 x10^3/uL (0.0-0.7) Basophils # (Auto) 0.1 x10^3/uL (0.0-0.2) Laboratory Tests Test 07/19/18 04:40 White Blood Count 13.0 x10^3/uL (4.0-11.0) Red Blood Count 3.96 x10^6/uL (3.50-5.40) Hemoglobin 10.7 g/dL (12.0-15.5) Hematocrit 32.5 % (36.0-47.0) Mean Corpuscular Volume 82 fL (79-100) Mean Corpuscular Hemoglobin 27 pg (25-35) Mean Corpuscular Hemoglobin Concent 33 g/dL (31-37) Red Cell Distribution Width 14.2 % (11.5-14.5) Platelet Count 208 x10^3/uL (140-400) Neutrophils (%) (Auto) 79 % (31-73) Lymphocytes (%) (Auto) 11 % (24-48) Monocytes (%) (Auto) 8 % (0-9) Eosinophils (%) (Auto) 1 % (0-3) Basophils (%) (Auto) 1 % (0-3) Neutrophils # (Auto) 10.3 x10^3uL (1.8-7.7) Lymphocytes # (Auto) 1.5 x10^3/uL (1.0-4.8) Monocytes # (Auto) 1.0 x10^3/uL (0.0-1.1) Eosinophils # (Auto) 0.1 x10^3/uL (0.0-0.7) Basophils # (Auto) 0.1 x10^3/uL (0.0-0.2) Problem List s/p xlap cont supportive care JACKSON HI MD Jul 19, 2018 12:32
--- NOTE | 2018-07-19 13:19 | NUR ---
SW following for discharge planning. Discussed with RN. SW awaiting PT/OT recommendations to determine needs at discharge. SW will continue to follow.
--- NOTE | 2018-07-19 13:47 | PDOC ---
Provider Note Provider Note Resting comfortably Dressing CDI Discussed with her and son prognosis and the need to follow ostomy closely FU in AM CBC - BMP 07/19/18 04:40 Vital Sign - Last 24 Hours 07/18/18 07/18/18 07/18/18 07/18/18 15:00 19:00 20:30 23:00 Temp 98.4 98.3 98.6 98.4 98.3 98.6 Pulse 86 96 68 Resp 18 14 18 B/P (MAP) 103/61 (75) 113/67 (82) 97/50 (66) Pulse Ox 95 95 91 O2 Delivery Room Air Room Air Room Air Room Air 07/18/18 07/19/18 07/19/18 07/19/18 23:31 00:01 03:00 06:30 Temp 98.9 98.2 98.9 98.2 Pulse 95 88 Resp 18 18 16 18 B/P (MAP) 136/63 (87) 127/61 (83) Pulse Ox 93 98 O2 Delivery Room Air Room Air Room Air Room Air 07/19/18 07/19/18 08:00 11:00 Temp 98.0 98.0 Pulse 90 Resp 18 B/P (MAP) 105/54 (71) Pulse Ox 94 O2 Delivery Room Air Room Air Intake and Output 07/18/18 07/18/18 07/19/18 15:01 23:01 07:01 Intake Total 1000 ml 600 ml 250 ml Output Total 600 ml 730 ml 1850 ml Balance 400 ml -130 ml -1600 ml CRISTIANO MENDIOLA MD Jul 19, 2018 13:47
[2018-07-19 15:00] VITALS: BP 117/61
--- NOTE | 2018-07-19 15:48 | NUR ---
Wound /Ostomy Care Spoke with pt, pt's luis and pt's son, who speaks Ukrainian. Explained [facility] Program and the free enrollment, all agreed to enrollment. Pt Ostomy teaching set up tentatively for tomorrow at 3 p.m. with son willing to be present. Bridge is still in place, will verify with Surgeon whether to keep in place or remove during teaching tomorrow.
--- NOTE | 2018-07-19 17:11 | PATHOLOGY ---
[facility] Accession Number: [id number] . 01 Material submitted: . UTERUS, CERVIX, BILATERAL FALLOPIAN TUBES, BILATERAL OVARIES . 01 Clinical history: . Uterine fibroids . 02 Diagnosis: Uterus and attached bilateral fallopian tubes and ovaries, abdominal hysterectomy with bilateral salpingo-oophorectomy: - Leiomyomas (2), uterine corpus, the largest measuring 1.5 cm in greatest dimension. - Adenomyosis, uterine corpus. - Chronic cervicitis with focal squamous metaplasia. - Disordered proliferative endometrium. - Congestion and cystic Walthard's rests of bilateral fallopian tubes. - Hemorrhagic corpus luteum cyst of left ovary. - Luteinized cyst of right ovary. [facility]/07/19/2018 . 02 Comment: There is no evidence of malignancy. (JPM:pit 07/19/2018) . 02 Electronically signed: . Bennett Lim MD, Pathologist NPI- [id number] . 01 Gross description: . The specimen is received in formalin, labeled "Khadijah Christensen, uterus, cervix, bilateral fallopian tubes, bilateral ovaries". Received is a 159 g, 8.6 x 7.0 x 5.5 cm uterus with attached cervix and attached adnexa, weighing 11 and 9 g, left and right, respectively. The uterine serosa is pink-estevez and smooth to moderately disrupted on the posterior aspect. The 1.0 cm cervical os is surrounded by light brown, disrupted to pale estevez, smooth ectocervical mucosa. The uterus is oriented using the peritoneal reflection and the anterior paracervical margin is inked black. The specimen is opened to reveal a pale estevez endocervical canal measuring 2.4 cm in length. The endometrial cavity is triangular measuring 4.7 cm in length by 3.0 cm in width. The endometrium is pink-estevez, glistening to shaggy in appearance and measures up to 0.2 cm in thickness. Serial sectioning reveals a estevez-pink, trabeculated myometrium measuring up to 2.7 cm in thickness displaying two intramural fibroids measuring 0.5 and 1.5 cm, as well as adenomyosis in the posterior aspect. . The left adnexa consists of a fimbriated fallopian tube measuring 4.9 cm in length by up to 0.8 cm in diameter attached to a 3.1 x 1.8 x 1.8 cm ovary. The fallopian tube displays multiple attached paratubal cysts ranging in size from 0.1 to 1.4 cm filled with clear fluid. Sectioning reveals a pinpoint to patent lumen. Sectioning through the ovary reveals an area of disruption measuring 0.7 cm. The remaining cut surfaces display pale estevez, normal ovarian stroma. . The right adnexa consists of a fimbriated fallopian tube measuring 5.1 cm in length by up to 0.6 cm in diameter attached to a 3.5 x 1.9 x 1.8 cm ovary. The fallopian tube displays multiple attached paratubal cysts ranging in size from 0.2 to 0.4 cm filled with clear fluid. Sectioning reveals a pinpoint to patent lumen. Sectioning through the ovary reveals a unilocular cystic structure measuring 1.5 cm filled with blood-tinged mucoid-like material. The remaining cut surfaces display pale estevez, normal ovarian stroma. The specimen is submitted representatively as follows: . A1 12:00 cervix A2 6:00 cervix A3 anterior endomyometrium A4 posterior endomyometrium A5 intramural fibroids A6 left adnexa A7-A8 right adnexa. (CAA; 07/18/2018) QAC/QAC . 02 Pathologist provided ICD-10: D25.9, N80.0, N72, D25.9, N83.12, N83.292 . 02 CPT . 293630 Specimen Comment: A courtesy copy of this report has been sent to Specimen Comment: [phone], . Specimen Comment: Report sent to / DR STILL Specimen Comment: A duplicate report has been generated due to demographic updates. Performed at: [address] [place] [address] [address], [place], [place] [id number] MD Robin Florez MD Phone: [phone] Performed at: [address] [id number] MD Bennett Lim MD Phone: [phone]
--- NOTE | 2018-07-19 17:37 | NUR ---
Gregorio'douglas Stokes at 1615. Pt tolerated well. Changed midline, isidro drain, dressing, and telfas. Also assisted pt with walking down the [place].
[2018-07-19 19:00] VITALS: BP 119/58
[2018-07-19] MEDS: ENOXAPARIN 40 MG/0.4 ML SYRINGE. SQ SCH (22:22)
[2018-07-19 23:00] VITALS: BP 112/51
[2018-07-20] MEDS: IV RINGERS,LACTATED 1000ML 1,000 ML IV SCH ×3 (01:27→17:03)
[2018-07-20 03:00] VITALS: BP 119/62
[2018-07-20 05:25] LABS: HEMATOCRIT 31.6 % (36.0-47.0); HEMOGLOBIN 10.7 g/dL (12.0-15.5); RED BLOOD COUNT 3.88 x10^6/uL (3.50-5.40); RED CELL DISTRIBUTION WIDTH 13.9 % (11.5-14.5); WHITE BLOOD COUNT 11.2 x10^3/uL (4.0-11.0)
[2018-07-20 06:08] LABS: CALCIUM 8.4 mg/dL (8.5-10.1); CREATININE 0.5 mg/dL (0.6-1.0); GFR 130.6; POTASSIUM 3.7 mmol/L (3.5-5.1)
[2018-07-20 07:00] VITALS: BP 121/62
[2018-07-20] MEDS: DOCUSATE SODIUM 100 MG CAPSULE. PO SCH ×2 (08:07→22:58)
[2018-07-20] MEDS: SENNOSIDES/DOCUSATE 8.6/50MG TABLET. PO SCH ×2 (08:07→22:58)
[2018-07-20 11:00] VITALS: BP 134/68
[2018-07-20] MEDS: HYDROmorphone 12mg/30ml PCA 30 ML IV PRN (11:49)
--- NOTE | 2018-07-20 12:04 | PDOC ---
SURGICAL PROGRESS NOTE Subjective feeling better no nausea Vital Signs Vital Signs Date Time Temp Pulse Resp B/P (MAP) Pulse Ox O2 Delivery O2 Flow Rate FiO2 07/20/18 11:49 Room Air 07/20/18 11:00 98.1 84 16 134/68 (90) 97 98.1 I&O Intake and Output 07/20/18 07:01 Intake Total 1907.25 ml Output Total 1775 ml Balance 132.25 ml Intake Oral 900 ml IV Total 1007.25 ml Output Urine Total 550 ml Stool Total 725 ml Drainage Total 500 ml # Voids 1 General: Alert, Oriented X3, Cooperative, No acute distress Abdomen: Soft, Other (ostomy with tannish liquid drainage, bridge in place, isidro serosang) Labs Laboratory Tests Test 07/19/18 04:40 07/20/18 04:00 White Blood Count 13.0 x10^3/uL (4.0-11.0) 11.2 x10^3/uL (4.0-11.0) Red Blood Count 3.96 x10^6/uL (3.50-5.40) 3.88 x10^6/uL (3.50-5.40) Hemoglobin 10.7 g/dL (12.0-15.5) 10.7 g/dL (12.0-15.5) Hematocrit 32.5 % (36.0-47.0) 31.6 % (36.0-47.0) Mean Corpuscular Volume 82 fL (79-100) 82 fL (79-100) Mean Corpuscular Hemoglobin 27 pg (25-35) 28 pg (25-35) Mean Corpuscular Hemoglobin Concent 33 g/dL (31-37) 34 g/dL (31-37) Red Cell Distribution Width 14.2 % (11.5-14.5) 13.9 % (11.5-14.5) Platelet Count 208 x10^3/uL (140-400) 219 x10^3/uL (140-400) Neutrophils (%) (Auto) 79 % (31-73) Lymphocytes (%) (Auto) 11 % (24-48) Monocytes (%) (Auto) 8 % (0-9) Eosinophils (%) (Auto) 1 % (0-3) Basophils (%) (Auto) 1 % (0-3) Neutrophils # (Auto) 10.3 x10^3uL (1.8-7.7) Lymphocytes # (Auto) 1.5 x10^3/uL (1.0-4.8) Monocytes # (Auto) 1.0 x10^3/uL (0.0-1.1) Eosinophils # (Auto) 0.1 x10^3/uL (0.0-0.7) Basophils # (Auto) 0.1 x10^3/uL (0.0-0.2) Sodium Level 138 mmol/L (136-145) 138 mmol/L (136-145) Potassium Level 3.8 mmol/L (3.5-5.1) 3.7 mmol/L (3.5-5.1) Chloride Level 104 mmol/L (98-107) 104 mmol/L (98-107) Carbon Dioxide Level 26 mmol/L (21-32) 26 mmol/L (21-32) Anion Gap 8 (6-14) 8 (6-14) Blood Urea Nitrogen 9 mg/dL (7-20) 11 mg/dL (7-20) Creatinine 0.6 mg/dL (0.6-1.0) 0.5 mg/dL (0.6-1.0) Estimated GFR (Cockcroft-Gault) 105.8 130.6 BUN/Creatinine Ratio 15 (6-20) Glucose Level 125 mg/dL (70-99) 104 mg/dL (70-99) Calcium Level 8.0 mg/dL (8.5-10.1) 8.4 mg/dL (8.5-10.1) Total Bilirubin 0.9 mg/dL (0.2-1.0) Aspartate Amino Transf (AST/SGOT) 17 U/L (15-37) Alanine Aminotransferase (ALT/SGPT) 19 U/L (14-59) Alkaline Phosphatase 70 U/L (46-116) Total Protein 5.5 g/dL (6.4-8.2) Albumin 2.5 g/dL (3.4-5.0) Albumin/Globulin Ratio 0.8 (1.0-1.7) Laboratory Tests Test 07/20/18 04:00 White Blood Count 11.2 x10^3/uL (4.0-11.0) Red Blood Count 3.88 x10^6/uL (3.50-5.40) Hemoglobin 10.7 g/dL (12.0-15.5) Hematocrit 31.6 % (36.0-47.0) Mean Corpuscular Volume 82 fL (79-100) Mean Corpuscular Hemoglobin 28 pg (25-35) Mean Corpuscular Hemoglobin Concent 34 g/dL (31-37) Red Cell Distribution Width 13.9 % (11.5-14.5) Platelet Count 219 x10^3/uL (140-400) Sodium Level 138 mmol/L (136-145) Potassium Level 3.7 mmol/L (3.5-5.1) Chloride Level 104 mmol/L (98-107) Carbon Dioxide Level 26 mmol/L (21-32) Anion Gap 8 (6-14) Blood Urea Nitrogen 11 mg/dL (7-20) Creatinine 0.5 mg/dL (0.6-1.0) Estimated GFR (Cockcroft-Gault) 130.6 Glucose Level 104 mg/dL (70-99) Calcium Level 8.4 mg/dL (8.5-10.1) Assessment/Plan start liquids ostomy care ambulate MARTIN STRATTON APRN Jul 20, 2018 12:04
--- NOTE | 2018-07-20 13:00 | PDOC ---
PROGRESS NOTES Subjective Subjective Patient feeling better less abdominal pain. Patient having good ostomy output. Objective Objective Vital Signs Date Time Temp Pulse Resp B/P (MAP) Pulse Ox O2 Delivery O2 Flow Rate FiO2 07/20/18 11:49 Room Air 07/20/18 11:00 98.1 84 16 134/68 (90) 97 98.1 07/17/18 20:00 2.0 Intake and Output 07/20/18 07:01 Intake Total 1907.25 ml Output Total 1775 ml Balance 132.25 ml Intake Oral 900 ml IV Total 1007.25 ml Output Urine Total 550 ml Stool Total 725 ml Drainage Total 500 ml # Voids 1 Physical Exam Abdomen: Other (patient still with minimal bowel sounds. Mild distention noted. Decreased tenderness) Heart: Regular rate Extremities: No edema General: Alert Lungs: Clear to auscultation Assessment Assessment 1. Status post total abdominal hysterectomy and bilateral oophorectomy POD#3 2. Bowel perforation with diverting ileostomy. 3. Ileus Plan Plan of Care Increase activity Advance diet per surgery recommendations Consider TPN if extended ileus Comment Review of Relevant I have reviewed the following items niko (where applicable) has been applied. Labs Laboratory Tests Test 07/19/18 04:40 07/20/18 04:00 White Blood Count 13.0 x10^3/uL (4.0-11.0) 11.2 x10^3/uL (4.0-11.0) Red Blood Count 3.96 x10^6/uL (3.50-5.40) 3.88 x10^6/uL (3.50-5.40) Hemoglobin 10.7 g/dL (12.0-15.5) 10.7 g/dL (12.0-15.5) Hematocrit 32.5 % (36.0-47.0) 31.6 % (36.0-47.0) Mean Corpuscular Volume 82 fL (79-100) 82 fL (79-100) Mean Corpuscular Hemoglobin 27 pg (25-35) 28 pg (25-35) Mean Corpuscular Hemoglobin Concent 33 g/dL (31-37) 34 g/dL (31-37) Red Cell Distribution Width 14.2 % (11.5-14.5) 13.9 % (11.5-14.5) Platelet Count 208 x10^3/uL (140-400) 219 x10^3/uL (140-400) Neutrophils (%) (Auto) 79 % (31-73) Lymphocytes (%) (Auto) 11 % (24-48) Monocytes (%) (Auto) 8 % (0-9) Eosinophils (%) (Auto) 1 % (0-3) Basophils (%) (Auto) 1 % (0-3) Neutrophils # (Auto) 10.3 x10^3uL (1.8-7.7) Lymphocytes # (Auto) 1.5 x10^3/uL (1.0-4.8) Monocytes # (Auto) 1.0 x10^3/uL (0.0-1.1) Eosinophils # (Auto) 0.1 x10^3/uL (0.0-0.7) Basophils # (Auto) 0.1 x10^3/uL (0.0-0.2) Sodium Level 138 mmol/L (136-145) 138 mmol/L (136-145) Potassium Level 3.8 mmol/L (3.5-5.1) 3.7 mmol/L (3.5-5.1) Chloride Level 104 mmol/L (98-107) 104 mmol/L (98-107) Carbon Dioxide Level 26 mmol/L (21-32) 26 mmol/L (21-32) Anion Gap 8 (6-14) 8 (6-14) Blood Urea Nitrogen 9 mg/dL (7-20) 11 mg/dL (7-20) Creatinine 0.6 mg/dL (0.6-1.0) 0.5 mg/dL (0.6-1.0) Estimated GFR (Cockcroft-Gault) 105.8 130.6 BUN/Creatinine Ratio 15 (6-20) Glucose Level 125 mg/dL (70-99) 104 mg/dL (70-99) Calcium Level 8.0 mg/dL (8.5-10.1) 8.4 mg/dL (8.5-10.1) Total Bilirubin 0.9 mg/dL (0.2-1.0) Aspartate Amino Transf (AST/SGOT) 17 U/L (15-37) Alanine Aminotransferase (ALT/SGPT) 19 U/L (14-59) Alkaline Phosphatase 70 U/L (46-116) Total Protein 5.5 g/dL (6.4-8.2) Albumin 2.5 g/dL (3.4-5.0) Albumin/Globulin Ratio 0.8 (1.0-1.7) Laboratory Tests Test 07/20/18 04:00 White Blood Count 11.2 x10^3/uL (4.0-11.0) Red Blood Count 3.88 x10^6/uL (3.50-5.40) Hemoglobin 10.7 g/dL (12.0-15.5) Hematocrit 31.6 % (36.0-47.0) Mean Corpuscular Volume 82 fL (79-100) Mean Corpuscular Hemoglobin 28 pg (25-35) Mean Corpuscular Hemoglobin Concent 34 g/dL (31-37) Red Cell Distribution Width 13.9 % (11.5-14.5) Platelet Count 219 x10^3/uL (140-400) Sodium Level 138 mmol/L (136-145) Potassium Level 3.7 mmol/L (3.5-5.1) Chloride Level 104 mmol/L (98-107) Carbon Dioxide Level 26 mmol/L (21-32) Anion Gap 8 (6-14) Blood Urea Nitrogen 11 mg/dL (7-20) Creatinine 0.5 mg/dL (0.6-1.0) Estimated GFR (Cockcroft-Gault) 130.6 Glucose Level 104 mg/dL (70-99) Calcium Level 8.4 mg/dL (8.5-10.1) Medications Current Medications Ondansetron HCl (Zofran) 4 mg PRN Q6HRS PRN IV NAUSEA/VOMITING; Start 07/17/18 at 07:00; Stop 07/17/18 at 18:00; Status DC Fentanyl Citrate (Fentanyl 2ml Vial) 25 mcg PRN Q5MIN PRN IV MILD PAIN; Start 07/17/18 at 07:00; Stop 07/17/18 at 18:00; Status DC Fentanyl Citrate (Fentanyl 2ml Vial) 50 mcg PRN Q5MIN PRN IV MODERATE TO SEVERE PAIN; Start 07/17/18 at 07:00; Stop 07/17/18 at 18:00; Status DC Morphine Sulfate (Morphine Sulfate) 1 mg PRN Q10MIN PRN IV SEVERE PAIN; Start 07/17/18 at 07:00; Stop 07/17/18 at 18:00; Status DC Ringer's Solution 1,000 ml @ 30 mls/hr Q24H IV Last administered on 07/17/18at 12:59; Start 07/17/18 at 07:00; Stop 07/17/18 at 18:59; Status DC Lidocaine HCl (Xylocaine-Mpf 1% 2ml Vial) 2 ml PRN 1X PRN ID IV START; Start at 07:00; Stop 07/17/18 at 18:00; Status DC Hydromorphone HCl (Dilaudid) 0.5 mg PRN Q10MIN PRN IV SEV PAIN, Second choice; Start 07/17/18 at 07:00; Stop 07/17/18 at 18:00; Status DC Prochlorperazine Edisylate (Compazine) 5 mg PACU PRN PRN IV NAUSEA, MRX1 Last administered on 07/17/18at 14:27; Start 07/17/18 at 07:00; Stop 07/17/18 at 18:00 ; Status DC Cefazolin Sodium/ Dextrose 50 ml @ 100 mls/hr 1X ONCE IV Last administered on 07/17/18at 08:07; Start 07/17/18 at 06:00; Stop 07/17/18 at 06:29; Status DC Bupivacaine HCl/ Epinephrine Bitart (Sensorcain-Mpf Epi 0.5%-1:[id number]) 30 ml STK -MED ONCE .ROUTE Last administered on 07/17/18at 07:40; Start 07/17/18 at 07:04 ; Stop 07/17/18 at 07:07; Status DC Methylene Blue (Methylene Blue) 1 ml STK-MED ONCE .ROUTE ; Start 07/17/18 at 07: 04; Stop 07/17/18 at 07:07; Status DC Lidocaine/ Epinephrine (LIDOCAINE 1%-EPI 1:100,000 Multi-Dose) 20 ml STK-MED ONCE .ROUTE ; Start 07/17/18 at 07:04; Stop 07/17/18 at 07:07; Status DC Fentanyl Citrate (Fentanyl 2ml Vial) 100 mcg STK-MED ONCE .ROUTE ; Start at 07:25; Stop 07/17/18 at 07:28; Status DC Lidocaine HCl (Lidocaine Pf 2% Vial) 5 ml STK-MED ONCE .ROUTE ; Start 07/17/18 at 07:25; Stop 07/17/18 at 07:28; Status DC Propofol 20 ml @ As Directed STK-MED ONCE IV ; Start 07/17/18 at 07:25; Stop at 07:28; Status DC Dexamethasone Sodium Phosphate (Decadron) 20 mg STK-MED ONCE .ROUTE ; Start at 07:25; Stop 07/17/18 at 07:28; Status DC Ondansetron HCl (Zofran) 4 mg STK-MED ONCE .ROUTE ; Start 07/17/18 at 07:25; Stop 07/17/18 at 07:28; Status DC Ketorolac Tromethamine (Toradol For Or Only) 30 mg STK-MED ONCE INJ ; Start at 07:25; Stop 07/17/18 at 07:28; Status DC Sevoflurane (Ultane) 60 ml STK-MED ONCE IH ; Start 07/17/18 at 07:25; Stop 07/17 at 07:28; Status DC Midazolam HCl (Versed) 2 mg STK-MED ONCE .ROUTE ; Start 07/17/18 at 07:33; Stop 07/17/18 at 07:35; Status DC Famotidine (Pepcid Vial) 20 mg STK-MED ONCE .ROUTE ; Start 07/17/18 at 07:33; Stop 07/17/18 at 07:36; Status DC Rocuronium Leipsic (Zemuron) 50 mg STK-MED ONCE .ROUTE ; Start 07/17/18 at 09:09 ; Stop 07/17/18 at 09:11; Status DC Lidocaine HCl (Lidocaine Pf 2% Vial) 5 ml STK-MED ONCE .ROUTE ; Start 07/17/18 at 10:12; Stop 07/17/18 at 10:15; Status DC Rocuronium Leipsic (Zemuron) 50 mg STK-MED ONCE .ROUTE ; Start 07/17/18 at 10:46 ; Stop 07/17/18 at 10:48; Status DC Estrogens Conjugated (Premarin) 30 alan STK-MED ONCE .ROUTE Last administered on 1/29/19at 12:48; Start 07/17/18 at 11:31; Stop 07/17/18 at 11:33; Status DC Neostigmine Methylsulfate (Bloxiverz) 10 mg STK-MED ONCE .ROUTE ; Start at 11:54; Stop 07/17/18 at 11:56; Status DC Glycopyrrolate (Robinul) 1 mg STK-MED ONCE .ROUTE ; Start 07/17/18 at 11:55; Stop 07/17/18 at 11:57; Status DC Morphine Sulfate (Morphine Sulfate) 10 mg STK-MED ONCE .ROUTE ; Start 07/17/18 at 11:57; Stop 07/17/18 at 11:59; Status DC Al Hydroxide/Mg Hydroxide (Mylanta Plus Xs) 30 ml PRN Q3HRS PRN PO HEARTBURN / GAS; Start 07/17/18 at 12:30 Calcium Carbonate/ Glycine (Tums) 500 mg PRN Q3HRS PRN PO INDIGESTION; Start at 12:30 Simethicone (Gas-X) 80 mg PRN AFTMEALHC PRN PO GAS / BLOATING; Start 07/17/18 at 12:30 Diphenhydramine HCl (Benadryl) 25 mg PRN Q6HRS PRN PO ITCHING; Start 07/17/18 at 12:30 Diphenhydramine HCl (Benadryl) 25 mg PRN Q6HRS PRN IV ITCHING; Start 07/17/18 at 12:30 Zolpidem Tartrate (Ambien) 5 mg PRN QHS PRN PO INSOMNIA; Start 07/17/18 at 12: 30 Naloxone HCl (Narcan) 0.1 mg PRN Q2MIN PRN IV SEE COMMENTS; Start 07/17/18 at 12:30 Sodium Chloride (Normal Saline Flush) 3 ml QSHIFT PRN IV AFTER MEDS AND BLOOD DRAWS; Start 07/17/18 at 12:30 Dextrose (Dextrose 50%-Water Syringe) 12.5 gm PRN Q15MIN PRN IV SEE COMMENTS; Start 07/17/18 at 12:30 Oxycodone/ Acetaminophen (Percocet 5/325) 1 tab PRN Q4HRS PRN PO MILD PAIN, 1ST CHOICE; Start 07/17/18 at 12:30 Senna/Docusate Sodium (Senna Plus) 1 tab BID PO Last administered on 07/18/18 09:00; Start 07/17/18 at 21:00 Docusate Sodium (Colace) 100 mg BID PO Last administered on 07/18/18 09:00; Start 07/17/18 at 21:00 Ondansetron HCl (Zofran) 4 mg PRN Q6HRS PRN IV NAUESA, 1ST CHOICE Last administered on 07/19/18at 04:59; Start 07/17/18 at 12:30 Cefazolin Sodium 1 gm/Dextrose 50 ml @ 100 mls/hr Q6H IV Last administered on 07/18/18 01:57; Start 07/17/18 at 14:00; Stop 07/18/18 at 02:29; Status DC Hydromorphone HCl 30 ml @ 0 mls/hr CONT PRN PRN IV PER PROTOCOL Last administered on 07/20/18 11:49; Start 07/17/18 at 12:30 Ringer's Solution 1,000 ml @ 120 mls/hr Q8H20M IV Last administered on 08:27; Start 07/17/18 at 15:00 Enoxaparin Sodium (Lovenox 40mg Syringe) 40 mg Q24H SQ Last administered on at 22:22; Start 07/18/18 at 21:00 Prochlorperazine Edisylate (Compazine) 10 mg PRN Q6HRS PRN IV NAUSEA/VOMITING, 2ND CHOICE Last administered on 07/19/18at 07:47; Start 07/19/18 at 07:30 Active Scripts Active Reported No Known Medications Prior To Admisstion (Info) Each 1 Each DAILY Vitals/I & O Vital Sign - Last 24 Hours 07/19/18 07/19/18 07/19/18 07/19/18 15:00 19:00 19:55 23:00 Temp 98.2 98.2 98.6 98.2 98.2 98.6 Pulse 87 92 94 Resp 18 16 18 B/P (MAP) 117/61 (79) 119/58 (78) 112/51 (71) Pulse Ox 92 92 97 O2 Delivery Room Air Room Air Room Air Room Air 07/20/18 07/20/18 07/20/18 07/20/18 03:00 07:00 07:25 11:00 Temp 98.6 98.1 98.1 98.6 98.1 98.1 Pulse 87 80 84 Resp 18 16 16 B/P (MAP) 119/62 (81) 121/62 (81) 134/68 (90) Pulse Ox 97 95 97 O2 Delivery Room Air Room Air Room Air Room Air 07/20/18 11:49 O2 Delivery Room Air Intake and Output 07/19/18 07/19/18 07/20/18 15:01 23:01 07:01 Intake Total 850 ml 1057.25 ml Output Total 510 ml 540 ml 725 ml Balance 340 ml -540 ml 332.25 ml KATHY STILL MD Jul 20, 2018 13:00
--- NOTE | 2018-07-20 13:20 | PDOC ---
Provider Note Provider Note IMPROVING HGB STABLE vss ABD SOFT OSTOMY DRAINING OSTOMY NURSE IN ROOM GOING OVER TRAINING DISCUSSED PT MOOD PATH RESULTS REVIEWED FU IN AM CRISTIANO MENDIOLA MD Jul 20, 2018 13:20
--- NOTE | 2018-07-20 13:35 | NUR ---
Wound/Ostomy care Pt still has bridge in place, discussed with Dr Ragland and will follow up on Monday for ostomy teaching when bridge can be removed. Patient and son aware of POC changes.
[2018-07-20] MEDS: ONDANSETRON PF 4 MG/2 ML VIAL. IV PRN (13:37)
--- NOTE | 2018-07-20 13:38 | NUR ---
ED Ramsey in to speak with pt using restuarant crew worker phone. Multiple family members at bed side. Pt. appears comfortable, Nausea meds given, denies complaints.
--- NOTE | 2018-07-20 14:01 | NUR ---
ED following for discharge planning. Discussed with RN, pt has a new ostomy and a ALDA drain. Pt and pt's family having ostomy teaching on Monday (07/23/18). DE and Tonia ([facility]) met with pt and pt's family at bedside. ED used the [employer] liaison engineer phone to speak with pt, who is Malay speaking. ED asked pt if she is needing anything upon discharge, pt denied stating she has her 's insurance. ED questioned whether pt would like to have a home health nurse come out to her house, ED also advised [facility] has a Malay speaking RN. Pt would like to have this assistance upon discharge. Tonia ([facility]) to fax cover sheet to ensure Tara, the Malay speaking RN has space on her case load to serve pt. RN notified. ED will continue to follow. Addendum: 07/20/18 at 1418 by SHANTAL WARD addendum - ID number for liaison engineer on the blue phone #[phone],
[2018-07-20 15:00] VITALS: BP 137/72
[2018-07-20] MEDS: PROCHLORPERAZINE 10 MG/2 ML VIAL. IV PRN (15:28)
[2018-07-20 19:35] VITALS: BP 121/60
[2018-07-20] MEDS: ENOXAPARIN 40 MG/0.4 ML SYRINGE. SQ SCH (22:59)
[2018-07-20 23:48] VITALS: BP 122/67
[2018-07-21] MEDS: IV RINGERS,LACTATED 1000ML 1,000 ML IV SCH ×2 (01:19→10:01)
[2018-07-21 03:00] VITALS: BP 120/60
[2018-07-21 07:00] VITALS: BP 131/57
[2018-07-21] MEDS: DOCUSATE SODIUM 100 MG CAPSULE. PO SCH ×2 (08:08→20:44)
[2018-07-21] MEDS: SENNOSIDES/DOCUSATE 8.6/50MG TABLET. PO SCH ×2 (08:09→20:44)
--- NOTE | 2018-07-21 09:03 | PDOC ---
MARTIN STRATTON RETURNED GOODS REPAIRER 07/21/18 0903: SURGICAL PROGRESS NOTE Subjective taking clears, no emesis per nursing nausea yesterday ambulating in halls pain managed Vital Signs Vital Signs Date Time Temp Pulse Resp B/P (MAP) Pulse Ox O2 Delivery O2 Flow Rate FiO2 07/21/18 03:00 97.9 84 18 120/60 (80) 95 Room Air 97.9 I&O Intake and Output 07/21/18 07:01 Intake Total 1039.5 ml Output Total 670 ml Balance 369.5 ml Intake Oral 390 ml IV Total 649.5 ml Stool Total 250 ml Urine/Stool Mix 300 ml Drainage Total 120 ml # Voids 5 # Bowel Movements 90 General: Alert, Oriented X3, Cooperative, No acute distress Abdomen: Soft, Other (isidro serosang, incision c/d/i, no erythema, ostomy with stool) Labs Laboratory Tests Test 07/20/18 04:00 White Blood Count 11.2 x10^3/uL (4.0-11.0) Red Blood Count 3.88 x10^6/uL (3.50-5.40) Hemoglobin 10.7 g/dL (12.0-15.5) Hematocrit 31.6 % (36.0-47.0) Mean Corpuscular Volume 82 fL (79-100) Mean Corpuscular Hemoglobin 28 pg (25-35) Mean Corpuscular Hemoglobin Concent 34 g/dL (31-37) Red Cell Distribution Width 13.9 % (11.5-14.5) Platelet Count 219 x10^3/uL (140-400) Sodium Level 138 mmol/L (136-145) Potassium Level 3.7 mmol/L (3.5-5.1) Chloride Level 104 mmol/L (98-107) Carbon Dioxide Level 26 mmol/L (21-32) Anion Gap 8 (6-14) Blood Urea Nitrogen 11 mg/dL (7-20) Creatinine 0.5 mg/dL (0.6-1.0) Estimated GFR (Cockcroft-Gault) 130.6 Glucose Level 104 mg/dL (70-99) Calcium Level 8.4 mg/dL (8.5-10.1) Problem List s/p protecting ileostomy can advance to full liquids if pt would like consider DC TEAMCENTER SOLUTION ARCHITECT--will defer to HUGO Louise MD 07/21/18 1052: SURGICAL PROGRESS NOTE Assessment/Plan Agree with Fabiana assessment and plan MARTIN STRATTON APRN Jul 21, 2018 09:03 HUGO SALTER MD Jul 21, 2018 10:52
--- NOTE | 2018-07-21 10:34 | PDOC ---
PROGRESS NOTES Subjective Subjective Patient feeling better. Objective Objective Vital Signs Date Time Temp Pulse Resp B/P (MAP) Pulse Ox O2 Delivery O2 Flow Rate FiO2 07/21/18 08:15 Room Air 07/21/18 07:00 98.2 84 16 131/57 (81) 97 98.2 07/17/18 20:00 2.0 Intake and Output 07/21/18 07:01 Intake Total 1039.5 ml Output Total 670 ml Balance 369.5 ml Intake Oral 390 ml IV Total 649.5 ml Stool Total 250 ml Urine/Stool Mix 300 ml Drainage Total 120 ml # Voids 5 # Bowel Movements 90 Physical Exam Abdomen: Normal bowel sounds Heart: Regular rate Extremities: No edema General: Alert Lungs: Clear to auscultation Assessment Assessment 1. Status post total abdominal hysterectomy and bilateral oophorectomy POD#4 2. Bowel perforation with diverting ileostomy. 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 Labs Laboratory Tests Test 07/20/18 04:00 White Blood Count 11.2 x10^3/uL (4.0-11.0) Red Blood Count 3.88 x10^6/uL (3.50-5.40) Hemoglobin 10.7 g/dL (12.0-15.5) Hematocrit 31.6 % (36.0-47.0) Mean Corpuscular Volume 82 fL (79-100) Mean Corpuscular Hemoglobin 28 pg (25-35) Mean Corpuscular Hemoglobin Concent 34 g/dL (31-37) Red Cell Distribution Width 13.9 % (11.5-14.5) Platelet Count 219 x10^3/uL (140-400) Sodium Level 138 mmol/L (136-145) Potassium Level 3.7 mmol/L (3.5-5.1) Chloride Level 104 mmol/L (98-107) Carbon Dioxide Level 26 mmol/L (21-32) Anion Gap 8 (6-14) Blood Urea Nitrogen 11 mg/dL (7-20) Creatinine 0.5 mg/dL (0.6-1.0) Estimated GFR (Cockcroft-Gault) 130.6 Glucose Level 104 mg/dL (70-99) Calcium Level 8.4 mg/dL (8.5-10.1) Medications Current Medications Ondansetron HCl (Zofran) 4 mg PRN Q6HRS PRN IV NAUSEA/VOMITING; Start 07/17/18 at 07:00; Stop 07/17/18 at 18:00; Status DC Fentanyl Citrate (Fentanyl 2ml Vial) 25 mcg PRN Q5MIN PRN IV MILD PAIN; Start 07/17/18 at 07:00; Stop 07/17/18 at 18:00; Status DC Fentanyl Citrate (Fentanyl 2ml Vial) 50 mcg PRN Q5MIN PRN IV MODERATE TO SEVERE PAIN; Start 07/17/18 at 07:00; Stop 07/17/18 at 18:00; Status DC Morphine Sulfate (Morphine Sulfate) 1 mg PRN Q10MIN PRN IV SEVERE PAIN; Start 07/17/18 at 07:00; Stop 07/17/18 at 18:00; Status DC Ringer's Solution 1,000 ml @ 30 mls/hr Q24H IV Last administered on 07/17/18at 12:59; Start 07/17/18 at 07:00; Stop 07/17/18 at 18:59; Status DC Lidocaine HCl (Xylocaine-Mpf 1% 2ml Vial) 2 ml PRN 1X PRN ID IV START; Start at 07:00; Stop 07/17/18 at 18:00; Status DC Hydromorphone HCl (Dilaudid) 0.5 mg PRN Q10MIN PRN IV SEV PAIN, Second choice; Start 07/17/18 at 07:00; Stop 07/17/18 at 18:00; Status DC Prochlorperazine Edisylate (Compazine) 5 mg PACU PRN PRN IV NAUSEA, MRX1 Last administered on 07/17/18at 14:27; Start 07/17/18 at 07:00; Stop 07/17/18 at 18:00 ; Status DC Cefazolin Sodium/ Dextrose 50 ml @ 100 mls/hr 1X ONCE IV Last administered on 07/17/18at 08:07; Start 07/17/18 at 06:00; Stop 07/17/18 at 06:29; Status DC Bupivacaine HCl/ Epinephrine Bitart (Sensorcain-Mpf Epi 0.5%-1:087728) 30 ml STK -MED ONCE .ROUTE Last administered on 07/17/18at 07:40; Start 07/17/18 at 07:04 ; Stop 07/17/18 at 07:07; Status DC Methylene Blue (Methylene Blue) 1 ml STK-MED ONCE .ROUTE ; Start 07/17/18 at 07: 04; Stop 07/17/18 at 07:07; Status DC Lidocaine/ Epinephrine (LIDOCAINE 1%-EPI 1:100,000 Multi-Dose) 20 ml STK-MED ONCE .ROUTE ; Start 07/17/18 at 07:04; Stop 07/17/18 at 07:07; Status DC Fentanyl Citrate (Fentanyl 2ml Vial) 100 mcg STK-MED ONCE .ROUTE ; Start at 07:25; Stop 07/17/18 at 07:28; Status DC Lidocaine HCl (Lidocaine Pf 2% Vial) 5 ml STK-MED ONCE .ROUTE ; Start 07/17/18 at 07:25; Stop 07/17/18 at 07:28; Status DC Propofol 20 ml @ As Directed STK-MED ONCE IV ; Start 07/17/18 at 07:25; Stop at 07:28; Status DC Dexamethasone Sodium Phosphate (Decadron) 20 mg STK-MED ONCE .ROUTE ; Start at 07:25; Stop 07/17/18 at 07:28; Status DC Ondansetron HCl (Zofran) 4 mg STK-MED ONCE .ROUTE ; Start 07/17/18 at 07:25; Stop 07/17/18 at 07:28; Status DC Ketorolac Tromethamine (Toradol For Or Only) 30 mg STK-MED ONCE INJ ; Start at 07:25; Stop 07/17/18 at 07:28; Status DC Sevoflurane (Ultane) 60 ml STK-MED ONCE IH ; Start 07/17/18 at 07:25; Stop 07/17 at 07:28; Status DC Midazolam HCl (Versed) 2 mg STK-MED ONCE .ROUTE ; Start 07/17/18 at 07:33; Stop 07/17/18 at 07:35; Status DC Famotidine (Pepcid Vial) 20 mg STK-MED ONCE .ROUTE ; Start 07/17/18 at 07:33; Stop 07/17/18 at 07:36; Status DC Rocuronium [place] (Zemuron) 50 mg STK-MED ONCE .ROUTE ; Start 07/17/18 at 09:09 ; Stop 07/17/18 at 09:11; Status DC Lidocaine HCl (Lidocaine Pf 2% Vial) 5 ml STK-MED ONCE .ROUTE ; Start 07/17/18 at 10:12; Stop 07/17/18 at 10:15; Status DC Rocuronium [place] (Zemuron) 50 mg STK-MED ONCE .ROUTE ; Start 07/17/18 at 10:46 ; Stop 07/17/18 at 10:48; Status DC Estrogens Conjugated (Premarin) 30 alan STK-MED ONCE .ROUTE Last administered on 07/17/18at 12:48; Start 07/17/18 at 11:31; Stop 07/17/18 at 11:33; Status DC Neostigmine Methylsulfate (Bloxiverz) 10 mg STK-MED ONCE .ROUTE ; Start at 11:54; Stop 07/17/18 at 11:56; Status DC Glycopyrrolate (Robinul) 1 mg STK-MED ONCE .ROUTE ; Start 07/17/18 at 11:55; Stop 07/17/18 at 11:57; Status DC Morphine Sulfate (Morphine Sulfate) 10 mg STK-MED ONCE .ROUTE ; Start 07/17/18 at 11:57; Stop 07/17/18 at 11:59; Status DC Al Hydroxide/Mg Hydroxide (Mylanta Plus Xs) 30 ml PRN Q3HRS PRN PO HEARTBURN / GAS; Start 07/17/18 at 12:30 Calcium Carbonate/ Glycine (Tums) 500 mg PRN Q3HRS PRN PO INDIGESTION; Start at 12:30 Simethicone (Gas-X) 80 mg PRN AFTMEALHC PRN PO GAS / BLOATING; Start 07/17/18 at 12:30 Diphenhydramine HCl (Benadryl) 25 mg PRN Q6HRS PRN PO ITCHING; Start 07/17/18 at 12:30 Diphenhydramine HCl (Benadryl) 25 mg PRN Q6HRS PRN IV ITCHING; Start 07/17/18 at 12:30 Zolpidem Tartrate (Ambien) 5 mg PRN QHS PRN PO INSOMNIA; Start 07/17/18 at 12: 30 Naloxone HCl (Narcan) 0.1 mg PRN Q2MIN PRN IV SEE COMMENTS; Start 07/17/18 at 12:30 Sodium Chloride (Normal Saline Flush) 3 ml QSHIFT PRN IV AFTER MEDS AND BLOOD DRAWS; Start 07/17/18 at 12:30 Dextrose (Dextrose 50%-Water Syringe) 12.5 gm PRN Q15MIN PRN IV SEE COMMENTS; Start 07/17/18 at 12:30 Oxycodone/ Acetaminophen (Percocet 5/325) 1 tab PRN Q4HRS PRN PO MILD PAIN, 1ST CHOICE; Start 07/17/18 at 12:30 Senna/Docusate Sodium (Senna Plus) 1 tab BID PO Last administered on 07/21/18at 08:09; Start 07/17/18 at 21:00 Docusate Sodium (Colace) 100 mg BID PO Last administered on 07/21/18at 08:08; Start 07/17/18 at 21:00 Ondansetron HCl (Zofran) 4 mg PRN Q6HRS PRN IV NAUESA, 1ST CHOICE Last administered on 07/20/18at 13:37; Start 07/17/18 at 12:30 Cefazolin Sodium 1 gm/Dextrose 50 ml @ 100 mls/hr Q6H IV Last administered on 07/18/18at 01:57; Start 07/17/18 at 14:00; Stop 07/18/18 at 02:29; Status DC Hydromorphone HCl 30 ml @ 0 mls/hr CONT PRN PRN IV PER PROTOCOL Last administered on 07/20/18at 11:49; Start 07/17/18 at 12:30; Stop 07/21/18 at 10:29; Status DC Ringer's Solution 1,000 ml @ 120 mls/hr Q8H20M IV Last administered on at 10:01; Start 07/17/18 at 15:00; Stop 07/21/18 at 10:29; Status DC Enoxaparin Sodium (Lovenox 40mg Syringe) 40 mg Q24H SQ Last administered on at 22:22; Start 07/18/18 at 21:00 Prochlorperazine Edisylate (Compazine) 10 mg PRN Q6HRS PRN IV NAUSEA/VOMITING, 2ND CHOICE Last administered on 07/20/18at 15:28; Start 07/19/18 at 07:30 Hydromorphone HCl (Dilaudid) 2 mg Q2HR PRN IV PAIN; Start 07/21/18 at 10:30; Status UNV Active Scripts Active Reported No Known Medications Prior To Admisstion (Info) Each 1 Each DAILY Vitals/I & O Vital Sign - Last 24 Hours 07/20/18 07/20/18 07/20/18 07/20/18 11:00 11:49 13:29 15:00 Temp 98.1 98.5 98.1 98.5 Pulse 84 82 Resp 16 18 B/P (MAP) 134/68 (90) 137/72 (93) Pulse Ox 97 96 O2 Delivery Room Air Room Air Room Air Room Air 07/20/18 07/20/18 07/20/18 07/21/18 19:35 20:00 23:48 03:00 Temp 98.2 98.0 97.9 98.2 98.0 97.9 Pulse 90 86 84 Resp 20 18 18 B/P (MAP) 121/60 (80) 122/67 (85) 120/60 (80) Pulse Ox 94 95 95 O2 Delivery Room Air Room Air Room Air Room Air 07/21/18 07/21/18 07:00 08:15 Temp 98.2 98.2 Pulse 84 Resp 16 B/P (MAP) 131/57 (81) Pulse Ox 97 O2 Delivery Room Air Room Air Intake and Output 07/20/18 07/20/18 07/21/18 15:01 23:01 07:01 Intake Total 0 ml 100 ml 939.5 ml Output Total 70 ml 125 ml 475 ml Balance -70 ml -25 ml 464.5 ml KATHY STILL MD Jul 21, 2018 10:34
[2018-07-21 11:00] VITALS: BP 133/74
--- NOTE | 2018-07-21 13:00 | NUR ---
This nurse administered 1mg of Dilaudid.
--- NOTE | 2018-07-21 13:00 | NUR ---
This nurse removed the packing for this patient, patient tolerated it well. This nurse will continue to monitor.
[2018-07-21] MEDS: HYDROmorphone 2 MG/ML VIAL IV PRN (13:01)
[2018-07-21 15:00] VITALS: BP 123/62
[2018-07-21] MEDS: oxyCODONE/APAP 5/325 1 TAB TABLET PO PRN ×2 (16:45→20:45)
[2018-07-21 19:00] VITALS: BP 121/83
[2018-07-21] MEDS ORDERED: HYDROmorphone 2 MG/ML VIAL IV PRN (19:15)
[2018-07-21] MEDS: ENOXAPARIN 40 MG/0.4 ML SYRINGE. SQ SCH (20:46)
--- NOTE | 2018-07-21 21:33 | PDOC ---
Provider Note Provider Note Patient doing much better today Packing delayed being removed Will start flagyl for BV Dressing CDI FU in AM Vital Sign - Last 24 Hours 07/20/18 07/21/18 07/21/18 07/21/18 23:48 03:00 07:00 08:15 Temp 98.0 97.9 98.2 98.0 97.9 98.2 Pulse 86 84 84 Resp 18 18 16 B/P (MAP) 122/67 (85) 120/60 (80) 131/57 (81) Pulse Ox 95 95 97 O2 Delivery Room Air Room Air Room Air Room Air 07/21/18 07/21/18 07/21/18 07/21/18 11:00 13:01 13:30 15:00 Temp 97.8 97.8 97.8 97.8 Pulse 84 82 Resp 16 16 B/P (MAP) 133/74 (93) 123/62 (82) Pulse Ox 96 96 97 O2 Delivery Room Air Room Air Room Air Room Air 07/21/18 07/21/18 07/21/18 07/21/18 16:45 18:00 19:00 20:05 Temp 98.3 98.3 Pulse 87 Resp 18 B/P (MAP) 121/83 (96) Pulse Ox 93 O2 Delivery Room Air Room Air Room Air Room Air 07/21/18 20:45 Resp 20 O2 Delivery Room Air Intake and Output 07/20/18 07/20/18 07/21/18 15:01 23:01 07:01 Intake Total 0 ml 100 ml 939.5 ml Output Total 70 ml 125 ml 475 ml Balance -70 ml -25 ml 464.5 ml CRISTIANO MENDIOLA MD Jul 21, 2018 21:33
[2018-07-21 22:00] VITALS: BP 121/63
[2018-07-21] MEDS: metroNIDAZOLE 500 MG TABLET PO SCH (22:13)
[2018-07-22] MEDS: oxyCODONE/APAP 5/325 1 TAB TABLET PO PRN ×4 (01:50→17:14)
[2018-07-22 03:00] VITALS: BP 126/62
[2018-07-22 07:00] VITALS: BP 114/55
[2018-07-22] MEDS: metroNIDAZOLE 500 MG TABLET PO SCH ×2 (08:01→21:51)
[2018-07-22] MEDS: DOCUSATE SODIUM 100 MG CAPSULE. PO SCH ×2 (08:02→21:51)
[2018-07-22] MEDS: SENNOSIDES/DOCUSATE 8.6/50MG TABLET. PO SCH ×2 (08:02→21:51)
--- NOTE | 2018-07-22 08:30 | PDOC ---
MARTIN STRATTON APRN 07/22/18 0830: SURGICAL PROGRESS NOTE Subjective tolerating diet ambulating pain managed Vital Signs Vital Signs Date Time Temp Pulse Resp B/P (MAP) Pulse Ox O2 Delivery O2 Flow Rate FiO2 07/22/18 08:02 95 Room Air 07/22/18 07:00 97.8 76 18 114/55 (74) 97.8 I&O Intake and Output 07/22/18 07:01 Intake Total 1480 ml Output Total 1880 ml Balance -400 ml Intake Oral 480 ml IV Total 1000 ml Stool Total 1050 ml Urine/Stool Mix 750 ml Drainage Total 80 ml # Voids 6 General: Alert, Oriented X3, Cooperative, No acute distress Abdomen: Soft, Other (isidro serous, ostomy with stool) Assessment/Plan diet as tolerated ostomy teaching tomorrow HUGO SALTER MD 07/22/18 1249: SURGICAL PROGRESS NOTE Assessment/Plan Agree with Fabiana assessment and plan MARTIN STRATTON APRN Jul 22, 2018 08:30 HUGO SALTER MD Jul 22, 2018 12:49
[2018-07-22 11:00] VITALS: BP 112/50
--- NOTE | 2018-07-22 14:43 | PDOC ---
PROGRESS NOTES Subjective Subjective Patient improving. Tolerating diet less pain Objective Objective Vital Signs Date Time Temp Pulse Resp B/P (MAP) Pulse Ox O2 Delivery O2 Flow Rate FiO2 07/22/18 13:46 Room Air 07/22/18 12:20 98 07/22/18 11:00 98.9 72 18 112/50 (70) 98.9 07/17/18 20:00 2.0 Intake and Output 07/22/18 07:01 Intake Total 1480 ml Output Total 1880 ml Balance -400 ml Intake Oral 480 ml IV Total 1000 ml Stool Total 1050 ml Urine/Stool Mix 750 ml Drainage Total 80 ml # Voids 6 Physical Exam Abdomen: Normal bowel sounds, Other (Good Ostomy out put) Heart: Regular rate Extremities: No edema General: Alert Lungs: Clear to auscultation Assessment Assessment 1. Status post total abdominal hysterectomy and bilateral oophorectomy POD#5 2. Bowel perforation with diverting ileostomy. Plan Plan of Care Ostomy care training in am. Home when stable tomorrow Comment Review of Relevant I have reviewed the following items niko (where applicable) has been applied. Medications Current Medications Ondansetron HCl (Zofran) 4 mg PRN Q6HRS PRN IV NAUSEA/VOMITING; Start 07/17/18 at 07:00; Stop 07/17/18 at 18:00; Status DC Fentanyl Citrate (Fentanyl 2ml Vial) 25 mcg PRN Q5MIN PRN IV MILD PAIN; Start 07/17/18 at 07:00; Stop 07/17/18 at 18:00; Status DC Fentanyl Citrate (Fentanyl 2ml Vial) 50 mcg PRN Q5MIN PRN IV MODERATE TO SEVERE PAIN; Start 07/17/18 at 07:00; Stop 07/17/18 at 18:00; Status DC Morphine Sulfate (Morphine Sulfate) 1 mg PRN Q10MIN PRN IV SEVERE PAIN; Start 07/17/18 at 07:00; Stop 07/17/18 at 18:00; Status DC Ringer's Solution 1,000 ml @ 30 mls/hr Q24H IV Last administered on 07/17/18at 12:59; Start 07/17/18 at 07:00; Stop 07/17/18 at 18:59; Status DC Lidocaine HCl (Xylocaine-Mpf 1% 2ml Vial) 2 ml PRN 1X PRN ID IV START; Start at 07:00; Stop 07/17/18 at 18:00; Status DC Hydromorphone HCl (Dilaudid) 0.5 mg PRN Q10MIN PRN IV SEV PAIN, Second choice; Start 07/17/18 at 07:00; Stop 07/17/18 at 18:00; Status DC Prochlorperazine Edisylate (Compazine) 5 mg PACU PRN PRN IV NAUSEA, MRX1 Last administered on 07/17/18at 14:27; Start 07/17/18 at 07:00; Stop 07/17/18 at 18:00 ; Status DC Cefazolin Sodium/ Dextrose 50 ml @ 100 mls/hr 1X ONCE IV Last administered on 07/17/18at 08:07; Start 07/17/18 at 06:00; Stop 07/17/18 at 06:29; Status DC Bupivacaine HCl/ Epinephrine Bitart (Sensorcain-Mpf Epi 0.5%-1:650063) 30 ml STK -MED ONCE .ROUTE Last administered on 07/17/18at 07:40; Start 07/17/18 at 07:04 ; Stop 07/17/18 at 07:07; Status DC Methylene Blue (Methylene Blue) 1 ml STK-MED ONCE .ROUTE ; Start 07/17/18 at 07: 04; Stop 07/17/18 at 07:07; Status DC Lidocaine/ Epinephrine (LIDOCAINE 1%-EPI 1:100,000 Multi-Dose) 20 ml STK-MED ONCE .ROUTE ; Start 07/17/18 at 07:04; Stop 07/17/18 at 07:07; Status DC Fentanyl Citrate (Fentanyl 2ml Vial) 100 mcg STK-MED ONCE .ROUTE ; Start at 07:25; Stop 07/17/18 at 07:28; Status DC Lidocaine HCl (Lidocaine Pf 2% Vial) 5 ml STK-MED ONCE .ROUTE ; Start 07/17/18 at 07:25; Stop 07/17/18 at 07:28; Status DC Propofol 20 ml @ As Directed STK-MED ONCE IV ; Start 07/17/18 at 07:25; Stop at 07:28; Status DC Dexamethasone Sodium Phosphate (Decadron) 20 mg STK-MED ONCE .ROUTE ; Start at 07:25; Stop 07/17/18 at 07:28; Status DC Ondansetron HCl (Zofran) 4 mg STK-MED ONCE .ROUTE ; Start 07/17/18 at 07:25; Stop 07/17/18 at 07:28; Status DC Ketorolac Tromethamine (Toradol For Or Only) 30 mg STK-MED ONCE INJ ; Start at 07:25; Stop 07/17/18 at 07:28; Status DC Sevoflurane (Ultane) 60 ml STK-MED ONCE IH ; Start 07/17/18 at 07:25; Stop 07/17 at 07:28; Status DC Midazolam HCl (Versed) 2 mg STK-MED ONCE .ROUTE ; Start 07/17/18 at 07:33; Stop 07/17/18 at 07:35; Status DC Famotidine (Pepcid Vial) 20 mg STK-MED ONCE .ROUTE ; Start 07/17/18 at 07:33; Stop 07/17/18 at 07:36; Status DC Rocuronium [place] (Zemuron) 50 mg STK-MED ONCE .ROUTE ; Start 07/17/18 at 09:09 ; Stop 07/17/18 at 09:11; Status DC Lidocaine HCl (Lidocaine Pf 2% Vial) 5 ml STK-MED ONCE .ROUTE ; Start 07/17/18 at 10:12; Stop 07/17/18 at 10:15; Status DC Rocuronium [place] (Zemuron) 50 mg STK-MED ONCE .ROUTE ; Start 07/17/18 at 10:46 ; Stop 07/17/18 at 10:48; Status DC Estrogens Conjugated (Premarin) 30 alan STK-MED ONCE .ROUTE Last administered on 07/17/18at 12:48; Start 07/17/18 at 11:31; Stop 07/17/18 at 11:33; Status DC Neostigmine Methylsulfate (Bloxiverz) 10 mg STK-MED ONCE .ROUTE ; Start at 11:54; Stop 07/17/18 at 11:56; Status DC Glycopyrrolate (Robinul) 1 mg STK-MED ONCE .ROUTE ; Start 07/17/18 at 11:55; Stop 07/17/18 at 11:57; Status DC Morphine Sulfate (Morphine Sulfate) 10 mg STK-MED ONCE .ROUTE ; Start 07/17/18 at 11:57; Stop 07/17/18 at 11:59; Status DC Al Hydroxide/Mg Hydroxide (Mylanta Plus Xs) 30 ml PRN Q3HRS PRN PO HEARTBURN / GAS; Start 07/17/18 at 12:30 Calcium Carbonate/ Glycine (Tums) 500 mg PRN Q3HRS PRN PO INDIGESTION; Start at 12:30 Simethicone (Gas-X) 80 mg PRN AFTMEALHC PRN PO GAS / BLOATING; Start 07/17/18 at 12:30 Diphenhydramine HCl (Benadryl) 25 mg PRN Q6HRS PRN PO ITCHING; Start 07/17/18 at 12:30 Diphenhydramine HCl (Benadryl) 25 mg PRN Q6HRS PRN IV ITCHING; Start 07/17/18 at 12:30 Zolpidem Tartrate (Ambien) 5 mg PRN QHS PRN PO INSOMNIA; Start 07/17/18 at 12: 30 Naloxone HCl (Narcan) 0.1 mg PRN Q2MIN PRN IV SEE COMMENTS; Start 07/17/18 at 12:30 Sodium Chloride (Normal Saline Flush) 3 ml QSHIFT PRN IV AFTER MEDS AND BLOOD DRAWS; Start 07/17/18 at 12:30 Dextrose (Dextrose 50%-Water Syringe) 12.5 gm PRN Q15MIN PRN IV SEE COMMENTS; Start 07/17/18 at 12:30 Oxycodone/ Acetaminophen (Percocet 5/325) 1 tab PRN Q4HRS PRN PO MILD PAIN, 1ST CHOICE Last administered on 07/22/18at 12:20; Start 07/17/18 at 12:30 Senna/Docusate Sodium (Senna Plus) 1 tab BID PO Last administered on 07/22/18at 08:02; Start 07/17/18 at 21:00 Docusate Sodium (Colace) 100 mg BID PO Last administered on 07/22/18at 08:02; Start 07/17/18 at 21:00 Ondansetron HCl (Zofran) 4 mg PRN Q6HRS PRN IV NAUESA, 1ST CHOICE Last administered on 07/20/18 13:37; Start 07/17/18 at 12:30 Cefazolin Sodium 1 gm/Dextrose 50 ml @ 100 mls/hr Q6H IV Last administered on 07/18/18 01:57; Start 07/17/18 at 14:00; Stop 07/18/18 at 02:29; Status DC Hydromorphone HCl 30 ml @ 0 mls/hr CONT PRN PRN IV PER PROTOCOL Last administered on 07/20/18 11:49; Start 07/17/18 at 12:30; Stop 07/21/18 at 10:29; Status DC Ringer's Solution 1,000 ml @ 120 mls/hr Q8H20M IV Last administered on 10:01; Start 07/17/18 at 15:00; Stop 07/21/18 at 10:29; Status DC Enoxaparin Sodium (Lovenox 40mg Syringe) 40 mg Q24H SQ Last administered on 07/21 20:46; Start 07/18/18 at 21:00 Prochlorperazine Edisylate (Compazine) 10 mg PRN Q6HRS PRN IV NAUSEA/VOMITING, 2ND CHOICE Last administered on 07/20/18 15:28; Start 07/19/18 at 07:30 Hydromorphone HCl (Dilaudid) 2 mg PRN Q2HRS PRN IV SEVERE PAIN Last administered on 07/21/18 13:01; Start 07/21/18 at 10:30 Hydromorphone HCl (Dilaudid) 1 mg PRN Q2HR PRN IV PAIN MILD TO MODERATE; Start 07/21/18 at 19:15 Metronidazole (Flagyl) 500 mg Q12HR PO Last administered on 07/22/18 08:01; Start 07/21/18 at 21:30 Lactobacillus Rhamnosus (Culturelle) 1 cap BID PO ; Start 07/22/18 at 21:00 Active Scripts Active Reported No Known Medications Prior To Admisstion (Info) Each 1 Each DAILY Vitals/I & O Vital Sign - Last 24 Hours 07/21/18 07/21/18 07/21/18 07/21/18 15:00 16:45 19:00 20:05 Temp 97.8 98.3 97.8 98.3 Pulse 82 87 Resp 16 18 B/P (MAP) 123/62 (82) 121/83 (96) Pulse Ox 97 93 O2 Delivery Room Air Room Air Room Air Room Air 07/21/18 07/21/18 07/22/18 07/22/18 20:45 22:00 01:50 02:50 Temp 98.0 98.0 Pulse 84 Resp 20 18 20 B/P (MAP) 121/63 (82) Pulse Ox 94 O2 Delivery Room Air Room Air Room Air 07/22/18 07/22/18 07/22/18 07/22/18 03:00 07:00 08:02 11:00 Temp 98.6 97.8 98.9 98.6 97.8 98.9 Pulse 77 76 72 Resp 18 18 18 B/P (MAP) 126/62 (83) 114/55 (74) 112/50 (70) Pulse Ox 95 96 95 98 O2 Delivery Room Air Room Air Room Air Room Air 07/22/18 07/22/18 12:20 13:46 Pulse Ox 98 O2 Delivery Room Air Room Air Intake and Output 07/21/18 07/21/18 07/22/18 15:01 23:01 07:01 Intake Total 1000 ml 480 ml Output Total 830 ml 1050 ml Balance 1000 ml -830 ml -570 ml KATHY STILL MD Jul 22, 2018 14:43
[2018-07-22 15:00] VITALS: BP 122/62
--- NOTE | 2018-07-22 15:49 | PDOC ---
Provider Note Provider Note Mood good No complaints VSS Dressing CDI ostomy intact min drainage out of ALDA Will remove and vag exam tomorrow FU in AM CRISTIANO MENDIOLA MD Jul 22, 2018 15:49
[2018-07-22 19:00] VITALS: BP 121/62
[2018-07-22] MEDS: LACTOBACILLUS RHAMNOSUS GG 1 CAPSULE. PO SCH (21:51)
[2018-07-22] MEDS: ENOXAPARIN 40 MG/0.4 ML SYRINGE. SQ SCH (21:54)
[2018-07-22 23:00] VITALS: BP 111/61
[2018-07-23 03:00] VITALS: BP 119/64
[2018-07-23] MEDS: oxyCODONE/APAP 5/325 1 TAB TABLET PO PRN ×4 (03:04→19:47)
[2018-07-23 07:10] LABS: BASO % 0 % (0-3); EOS # 0.6 x10^3/uL (0.0-0.7); EOS % 6 % (0-3); HEMATOCRIT 34.3 % (36.0-47.0); HEMOGLOBIN 11.4 g/dL (12.0-15.5); LYMPH # 1.6 x10^3/uL (1.0-4.8); LYMPH % 16 % (24-48); MEAN CORPUSCULAR HEMOGLOBIN 27 pg (25-35); MEAN CORPUSCULAR HGB CONC 33 g/dL (31-37); MEAN CORPUSCULAR VOLUME 82 fL (79-100); MONO # 0.7 x10^3/uL (0.0-1.1); MONO % 7 % (0-9); NEUT # 7.5 x10^3uL (1.8-7.7); NEUT % 72 % (31-73); PLATELET COUNT 296 x10^3/uL (140-400); RED CELL DISTRIBUTION WIDTH 14.1 % (11.5-14.5); WHITE BLOOD COUNT 10.5 x10^3/uL (4.0-11.0)
[2018-07-23 07:16] LABS: ALBUMIN 2.4 g/dL (3.4-5.0); ALBUMIN/GLOBULIN RATIO 0.6 (1.0-1.7); CALCIUM 9.1 mg/dL (8.5-10.1); CREATININE 0.6 mg/dL (0.6-1.0); GFR 105.8; POTASSIUM 3.7 mmol/L (3.5-5.1); TOTAL BILIRUBIN 0.6 mg/dL (0.2-1.0); TOTAL PROTEIN 6.5 g/dL (6.4-8.2)
[2018-07-23 07:20] VITALS: BP 121/69
[2018-07-23] MEDS: SENNOSIDES/DOCUSATE 8.6/50MG TABLET. PO SCH (08:18)
[2018-07-23] MEDS: LACTOBACILLUS RHAMNOSUS GG 1 CAPSULE. PO SCH (08:18)
[2018-07-23] MEDS: metroNIDAZOLE 500 MG TABLET PO SCH ×2 (08:19→19:47)
[2018-07-23] MEDS: DOCUSATE SODIUM 100 MG CAPSULE. PO SCH (08:19)
[2018-07-23 11:20] VITALS: BP 127/72
--- NOTE | 2018-07-23 11:39 | NUR ---
SW following. Discussed with RN, pt is discharging this afternoon after having the ostomy teaching around 1500. Pt will discharge home with [facility] for nursing. [facility] has been notified of possible discharge time. SW awaiting discharge paperwork. SW will continue to follow. RN notified.
--- NOTE | 2018-07-23 12:44 | PDOC ---
SURGICAL PROGRESS NOTE Subjective no complaints pain managed feels well Vital Signs Vital Signs Date Time Temp Pulse Resp B/P (MAP) Pulse Ox O2 Delivery O2 Flow Rate FiO2 07/23/18 12:23 Room Air 07/23/18 11:20 98.7 76 16 127/72 (90) 96 98.7 I&O Intake and Output 07/23/18 07:01 Intake Total 1060 ml Output Total 700 ml Balance 360 ml Intake Oral 1060 ml Stool Total 150 ml Gastric Drainage Total 550 ml # Voids 1 General: Alert, Oriented X3, Cooperative, No acute distress Abdomen: Soft, Other (ostomy with stool, isidro serosang) Labs Laboratory Tests Test 07/23/18 06:40 White Blood Count 10.5 x10^3/uL (4.0-11.0) Red Blood Count 4.20 x10^6/uL (3.50-5.40) Hemoglobin 11.4 g/dL (12.0-15.5) Hematocrit 34.3 % (36.0-47.0) Mean Corpuscular Volume 82 fL (79-100) Mean Corpuscular Hemoglobin 27 pg (25-35) Mean Corpuscular Hemoglobin Concent 33 g/dL (31-37) Red Cell Distribution Width 14.1 % (11.5-14.5) Platelet Count 296 x10^3/uL (140-400) Neutrophils (%) (Auto) 72 % (31-73) Lymphocytes (%) (Auto) 16 % (24-48) Monocytes (%) (Auto) 7 % (0-9) Eosinophils (%) (Auto) 6 % (0-3) Basophils (%) (Auto) 0 % (0-3) Neutrophils # (Auto) 7.5 x10^3uL (1.8-7.7) Lymphocytes # (Auto) 1.6 x10^3/uL (1.0-4.8) Monocytes # (Auto) 0.7 x10^3/uL (0.0-1.1) Eosinophils # (Auto) 0.6 x10^3/uL (0.0-0.7) Basophils # (Auto) 0.0 x10^3/uL (0.0-0.2) Sodium Level 138 mmol/L (136-145) Potassium Level 3.7 mmol/L (3.5-5.1) Chloride Level 103 mmol/L (98-107) Carbon Dioxide Level 26 mmol/L (21-32) Anion Gap 9 (6-14) Blood Urea Nitrogen 9 mg/dL (7-20) Creatinine 0.6 mg/dL (0.6-1.0) Estimated GFR (Cockcroft-Gault) 105.8 BUN/Creatinine Ratio 15 (6-20) Glucose Level 120 mg/dL (70-99) Calcium Level 9.1 mg/dL (8.5-10.1) Total Bilirubin 0.6 mg/dL (0.2-1.0) Aspartate Amino Transf (AST/SGOT) 28 U/L (15-37) Alanine Aminotransferase (ALT/SGPT) 59 U/L (14-59) Alkaline Phosphatase 132 U/L (46-116) Total Protein 6.5 g/dL (6.4-8.2) Albumin 2.4 g/dL (3.4-5.0) Albumin/Globulin Ratio 0.6 (1.0-1.7) Laboratory Tests Test 07/23/18 06:40 White Blood Count 10.5 x10^3/uL (4.0-11.0) Red Blood Count 4.20 x10^6/uL (3.50-5.40) Hemoglobin 11.4 g/dL (12.0-15.5) Hematocrit 34.3 % (36.0-47.0) Mean Corpuscular Volume 82 fL (79-100) Mean Corpuscular Hemoglobin 27 pg (25-35) Mean Corpuscular Hemoglobin Concent 33 g/dL (31-37) Red Cell Distribution Width 14.1 % (11.5-14.5) Platelet Count 296 x10^3/uL (140-400) Neutrophils (%) (Auto) 72 % (31-73) Lymphocytes (%) (Auto) 16 % (24-48) Monocytes (%) (Auto) 7 % (0-9) Eosinophils (%) (Auto) 6 % (0-3) Basophils (%) (Auto) 0 % (0-3) Neutrophils # (Auto) 7.5 x10^3uL (1.8-7.7) Lymphocytes # (Auto) 1.6 x10^3/uL (1.0-4.8) Monocytes # (Auto) 0.7 x10^3/uL (0.0-1.1) Eosinophils # (Auto) 0.6 x10^3/uL (0.0-0.7) Basophils # (Auto) 0.0 x10^3/uL (0.0-0.2) Sodium Level 138 mmol/L (136-145) Potassium Level 3.7 mmol/L (3.5-5.1) Chloride Level 103 mmol/L (98-107) Carbon Dioxide Level 26 mmol/L (21-32) Anion Gap 9 (6-14) Blood Urea Nitrogen 9 mg/dL (7-20) Creatinine 0.6 mg/dL (0.6-1.0) Estimated GFR (Cockcroft-Gault) 105.8 BUN/Creatinine Ratio 15 (6-20) Glucose Level 120 mg/dL (70-99) Calcium Level 9.1 mg/dL (8.5-10.1) Total Bilirubin 0.6 mg/dL (0.2-1.0) Aspartate Amino Transf (AST/SGOT) 28 U/L (15-37) Alanine Aminotransferase (ALT/SGPT) 59 U/L (14-59) Alkaline Phosphatase 132 U/L (46-116) Total Protein 6.5 g/dL (6.4-8.2) Albumin 2.4 g/dL (3.4-5.0) Albumin/Globulin Ratio 0.6 (1.0-1.7) Assessment/Plan ostomy teaching and possible dc today remove ISIDRO prior to dc home MARTIN STRATTON APRN Jul 23, 2018 12:44
--- NOTE | 2018-07-23 14:00 | NUR ---
Pt purchased walker from hospital. 20 dollars taken to Pt care services, walker with receipt given to Pt.
[2018-07-23] MEDS: ONDANSETRON PF 4 MG/2 ML VIAL. IV PRN (14:48)
[2018-07-23] MEDS: HYDROmorphone 2 MG/ML VIAL IV PRN (14:49)
--- NOTE | 2018-07-23 15:07 | PDOC ---
PROGRESS NOTES Subjective Subjective Patient feeling better Objective Objective Vital Signs Date Time Temp Pulse Resp B/P (MAP) Pulse Ox O2 Delivery O2 Flow Rate FiO2 07/23/18 14:53 Room Air 07/23/18 11:20 98.7 76 16 127/72 (90) 96 98.7 07/17/18 20:00 2.0 Intake and Output 07/23/18 07:01 Intake Total 1060 ml Output Total 700 ml Balance 360 ml Intake Oral 1060 ml Stool Total 150 ml Gastric Drainage Total 550 ml # Voids 1 Physical Exam Abdomen: Normal bowel sounds Heart: Regular rate Extremities: No edema General: Alert Lungs: Clear to auscultation Assessment Assessment 1. Status post total abdominal hysterectomy and bilateral oophorectomy POD#5 2. Bowel perforation with diverting ileostomy. Plan Plan of Longterm when ok with [employer] and Surgery F/U 2 weeks LONG TERM Comment Review of Relevant I have reviewed the following items niko (where applicable) has been applied. Labs Laboratory Tests Test 07/23/18 06:40 White Blood Count 10.5 x10^3/uL (4.0-11.0) Red Blood Count 4.20 x10^6/uL (3.50-5.40) Hemoglobin 11.4 g/dL (12.0-15.5) Hematocrit 34.3 % (36.0-47.0) Mean Corpuscular Volume 82 fL (79-100) Mean Corpuscular Hemoglobin 27 pg (25-35) Mean Corpuscular Hemoglobin Concent 33 g/dL (31-37) Red Cell Distribution Width 14.1 % (11.5-14.5) Platelet Count 296 x10^3/uL (140-400) Neutrophils (%) (Auto) 72 % (31-73) Lymphocytes (%) (Auto) 16 % (24-48) Monocytes (%) (Auto) 7 % (0-9) Eosinophils (%) (Auto) 6 % (0-3) Basophils (%) (Auto) 0 % (0-3) Neutrophils # (Auto) 7.5 x10^3uL (1.8-7.7) Lymphocytes # (Auto) 1.6 x10^3/uL (1.0-4.8) Monocytes # (Auto) 0.7 x10^3/uL (0.0-1.1) Eosinophils # (Auto) 0.6 x10^3/uL (0.0-0.7) Basophils # (Auto) 0.0 x10^3/uL (0.0-0.2) Sodium Level 138 mmol/L (136-145) Potassium Level 3.7 mmol/L (3.5-5.1) Chloride Level 103 mmol/L (98-107) Carbon Dioxide Level 26 mmol/L (21-32) Anion Gap 9 (6-14) Blood Urea Nitrogen 9 mg/dL (7-20) Creatinine 0.6 mg/dL (0.6-1.0) Estimated GFR (Cockcroft-Gault) 105.8 BUN/Creatinine Ratio 15 (6-20) Glucose Level 120 mg/dL (70-99) Calcium Level 9.1 mg/dL (8.5-10.1) Total Bilirubin 0.6 mg/dL (0.2-1.0) Aspartate Amino Transf (AST/SGOT) 28 U/L (15-37) Alanine Aminotransferase (ALT/SGPT) 59 U/L (14-59) Alkaline Phosphatase 132 U/L (46-116) Total Protein 6.5 g/dL (6.4-8.2) Albumin 2.4 g/dL (3.4-5.0) Albumin/Globulin Ratio 0.6 (1.0-1.7) Laboratory Tests Test 07/23/18 06:40 White Blood Count 10.5 x10^3/uL (4.0-11.0) Red Blood Count 4.20 x10^6/uL (3.50-5.40) Hemoglobin 11.4 g/dL (12.0-15.5) Hematocrit 34.3 % (36.0-47.0) Mean Corpuscular Volume 82 fL (79-100) Mean Corpuscular Hemoglobin 27 pg (25-35) Mean Corpuscular Hemoglobin Concent 33 g/dL (31-37) Red Cell Distribution Width 14.1 % (11.5-14.5) Platelet Count 296 x10^3/uL (140-400) Neutrophils (%) (Auto) 72 % (31-73) Lymphocytes (%) (Auto) 16 % (24-48) Monocytes (%) (Auto) 7 % (0-9) Eosinophils (%) (Auto) 6 % (0-3) Basophils (%) (Auto) 0 % (0-3) Neutrophils # (Auto) 7.5 x10^3uL (1.8-7.7) Lymphocytes # (Auto) 1.6 x10^3/uL (1.0-4.8) Monocytes # (Auto) 0.7 x10^3/uL (0.0-1.1) Eosinophils # (Auto) 0.6 x10^3/uL (0.0-0.7) Basophils # (Auto) 0.0 x10^3/uL (0.0-0.2) Sodium Level 138 mmol/L (136-145) Potassium Level 3.7 mmol/L (3.5-5.1) Chloride Level 103 mmol/L (98-107) Carbon Dioxide Level 26 mmol/L (21-32) Anion Gap 9 (6-14) Blood Urea Nitrogen 9 mg/dL (7-20) Creatinine 0.6 mg/dL (0.6-1.0) Estimated GFR (Cockcroft-Gault) 105.8 BUN/Creatinine Ratio 15 (6-20) Glucose Level 120 mg/dL (70-99) Calcium Level 9.1 mg/dL (8.5-10.1) Total Bilirubin 0.6 mg/dL (0.2-1.0) Aspartate Amino Transf (AST/SGOT) 28 U/L (15-37) Alanine Aminotransferase (ALT/SGPT) 59 U/L (14-59) Alkaline Phosphatase 132 U/L (46-116) Total Protein 6.5 g/dL (6.4-8.2) Albumin 2.4 g/dL (3.4-5.0) Albumin/Globulin Ratio 0.6 (1.0-1.7) Medications Current Medications Ondansetron HCl (Zofran) 4 mg PRN Q6HRS PRN IV NAUSEA/VOMITING; Start 07/17/18 at 07:00; Stop 07/17/18 at 18:00; Status DC Fentanyl Citrate (Fentanyl 2ml Vial) 25 mcg PRN Q5MIN PRN IV MILD PAIN; Start 07/17/18 at 07:00; Stop 07/17/18 at 18:00; Status DC Fentanyl Citrate (Fentanyl 2ml Vial) 50 mcg PRN Q5MIN PRN IV MODERATE TO SEVERE PAIN; Start 07/17/18 at 07:00; Stop 07/17/18 at 18:00; Status DC Morphine Sulfate (Morphine Sulfate) 1 mg PRN Q10MIN PRN IV SEVERE PAIN; Start 07/17/18 at 07:00; Stop 07/17/18 at 18:00; Status DC Ringer's Solution 1,000 ml @ 30 mls/hr Q24H IV Last administered on 07/17/18at 12:59; Start 07/17/18 at 07:00; Stop 07/17/18 at 18:59; Status DC Lidocaine HCl (Xylocaine-Mpf 1% 2ml Vial) 2 ml PRN 1X PRN ID IV START; Start at 07:00; Stop 07/17/18 at 18:00; Status DC Hydromorphone HCl (Dilaudid) 0.5 mg PRN Q10MIN PRN IV SEV PAIN, Second choice; Start 07/17/18 at 07:00; Stop 07/17/18 at 18:00; Status DC Prochlorperazine Edisylate (Compazine) 5 mg PACU PRN PRN IV NAUSEA, MRX1 Last administered on 07/17/18at 14:27; Start 07/17/18 at 07:00; Stop 07/17/18 at 18:00 ; Status DC Cefazolin Sodium/ Dextrose 50 ml @ 100 mls/hr 1X ONCE IV Last administered on 07/17/18at 08:07; Start 07/17/18 at 06:00; Stop 07/17/18 at 06:29; Status DC Bupivacaine HCl/ Epinephrine Bitart (Sensorcain-Mpf Epi 0.5%-1:094804) 30 ml STK -MED ONCE .ROUTE Last administered on 07/17/18at 07:40; Start 07/17/18 at 07:04 ; Stop 07/17/18 at 07:07; Status DC Methylene Blue (Methylene Blue) 1 ml STK-MED ONCE .ROUTE ; Start 07/17/18 at 07: 04; Stop 07/17/18 at 07:07; Status DC Lidocaine/ Epinephrine (LIDOCAINE 1%-EPI 1:100,000 Multi-Dose) 20 ml STK-MED ONCE .ROUTE ; Start 07/17/18 at 07:04; Stop 07/17/18 at 07:07; Status DC Fentanyl Citrate (Fentanyl 2ml Vial) 100 mcg STK-MED ONCE .ROUTE ; Start at 07:25; Stop 07/17/18 at 07:28; Status DC Lidocaine HCl (Lidocaine Pf 2% Vial) 5 ml STK-MED ONCE .ROUTE ; Start 07/17/18 at 07:25; Stop 07/17/18 at 07:28; Status DC Propofol 20 ml @ As Directed STK-MED ONCE IV ; Start 07/17/18 at 07:25; Stop at 07:28; Status DC Dexamethasone Sodium Phosphate (Decadron) 20 mg STK-MED ONCE .ROUTE ; Start at 07:25; Stop 07/17/18 at 07:28; Status DC Ondansetron HCl (Zofran) 4 mg STK-MED ONCE .ROUTE ; Start 07/17/18 at 07:25; Stop 07/17/18 at 07:28; Status DC Ketorolac Tromethamine (Toradol For Or Only) 30 mg STK-MED ONCE INJ ; Start at 07:25; Stop 07/17/18 at 07:28; Status DC Sevoflurane (Ultane) 60 ml STK-MED ONCE IH ; Start 07/17/18 at 07:25; Stop 07/17 at 07:28; Status DC Midazolam HCl (Versed) 2 mg STK-MED ONCE .ROUTE ; Start 07/17/18 at 07:33; Stop 07/17/18 at 07:35; Status DC Famotidine (Pepcid Vial) 20 mg STK-MED ONCE .ROUTE ; Start 07/17/18 at 07:33; Stop 07/17/18 at 07:36; Status DC Rocuronium [place] (Zemuron) 50 mg STK-MED ONCE .ROUTE ; Start 07/17/18 at 09:09 ; Stop 07/17/18 at 09:11; Status DC Lidocaine HCl (Lidocaine Pf 2% Vial) 5 ml STK-MED ONCE .ROUTE ; Start 07/17/18 at 10:12; Stop 07/17/18 at 10:15; Status DC Rocuronium [place] (Zemuron) 50 mg STK-MED ONCE .ROUTE ; Start 07/17/18 at 10:46 ; Stop 07/17/18 at 10:48; Status DC Estrogens Conjugated (Premarin) 30 alan STK-MED ONCE .ROUTE Last administered on 07/17/18at 12:48; Start 07/17/18 at 11:31; Stop 07/17/18 at 11:33; Status DC Neostigmine Methylsulfate (Bloxiverz) 10 mg STK-MED ONCE .ROUTE ; Start at 11:54; Stop 07/17/18 at 11:56; Status DC Glycopyrrolate (Robinul) 1 mg STK-MED ONCE .ROUTE ; Start 07/17/18 at 11:55; Stop 07/17/18 at 11:57; Status DC Morphine Sulfate (Morphine Sulfate) 10 mg STK-MED ONCE .ROUTE ; Start 07/17/18 at 11:57; Stop 07/17/18 at 11:59; Status DC Al Hydroxide/Mg Hydroxide (Mylanta Plus Xs) 30 ml PRN Q3HRS PRN PO HEARTBURN / GAS; Start 07/17/18 at 12:30 Calcium Carbonate/ Glycine (Tums) 500 mg PRN Q3HRS PRN PO INDIGESTION; Start at 12:30 Simethicone (Gas-X) 80 mg PRN AFTMEALHC PRN PO GAS / BLOATING; Start 07/17/18 at 12:30 Diphenhydramine HCl (Benadryl) 25 mg PRN Q6HRS PRN PO ITCHING; Start 07/17/18 at 12:30 Diphenhydramine HCl (Benadryl) 25 mg PRN Q6HRS PRN IV ITCHING; Start 07/17/18 at 12:30 Zolpidem Tartrate (Ambien) 5 mg PRN QHS PRN PO INSOMNIA; Start 07/17/18 at 12: 30 Naloxone HCl (Narcan) 0.1 mg PRN Q2MIN PRN IV SEE COMMENTS; Start 07/17/18 at 12:30 Sodium Chloride (Normal Saline Flush) 3 ml QSHIFT PRN IV AFTER MEDS AND BLOOD DRAWS; Start 07/17/18 at 12:30 Dextrose (Dextrose 50%-Water Syringe) 12.5 gm PRN Q15MIN PRN IV SEE COMMENTS; Start 07/17/18 at 12:30 Oxycodone/ Acetaminophen (Percocet 5/325) 1 tab PRN Q4HRS PRN PO MILD PAIN, 1ST CHOICE Last administered on 07/23/18 12:23; Start 07/17/18 at 12:30 Senna/Docusate Sodium (Senna Plus) 1 tab BID PO Last administered on 07/23/18 08:18; Start 07/17/18 at 21:00 Docusate Sodium (Colace) 100 mg BID PO Last administered on 07/23/18 08:19; Start 07/17/18 at 21:00 Ondansetron HCl (Zofran) 4 mg PRN Q6HRS PRN IV NAUESA, 1ST CHOICE Last administered on 07/23/18 14:48; Start 07/17/18 at 12:30 Cefazolin Sodium 1 gm/Dextrose 50 ml @ 100 mls/hr Q6H IV Last administered on 07/18/18 01:57; Start 07/17/18 at 14:00; Stop 07/18/18 at 02:29; Status DC Hydromorphone HCl 30 ml @ 0 mls/hr CONT PRN PRN IV PER PROTOCOL Last administered on 07/20/18 11:49; Start 07/17/18 at 12:30; Stop 07/21/18 at 10:29; Status DC Ringer's Solution 1,000 ml @ 120 mls/hr Q8H20M IV Last administered on 10:01; Start 07/17/18 at 15:00; Stop 07/21/18 at 10:29; Status DC Enoxaparin Sodium (Lovenox 40mg Syringe) 40 mg Q24H SQ Last administered on 07/22 21:54; Start 07/18/18 at 21:00 Prochlorperazine Edisylate (Compazine) 10 mg PRN Q6HRS PRN IV NAUSEA/VOMITING, 2ND CHOICE Last administered on 07/20/18 15:28; Start 07/19/18 at 07:30 Hydromorphone HCl (Dilaudid) 2 mg PRN Q2HRS PRN IV SEVERE PAIN Last administered on 07/21/18 13:01; Start 07/21/18 at 10:30 Hydromorphone HCl (Dilaudid) 1 mg PRN Q2HR PRN IV PAIN MILD TO MODERATE Last administered on 07/23/18 14:53; Start 07/21/18 at 19:15 Metronidazole (Flagyl) 500 mg Q12HR PO Last administered on 07/23/18 08:19; Start 07/21/18 at 21:30 Lactobacillus Rhamnosus (Culturelle) 1 cap BID PO Last administered on 08:18; Start 07/22/18 at 21:00 Active Scripts Active Reported No Known Medications Prior To Admisstion (Info) Each 1 Each DAILY Vitals/I & O Vital Sign - Last 24 Hours 07/22/18 07/22/18 07/22/18 07/22/18 17:14 19:00 20:00 23:00 Temp 98.0 98.3 98.0 98.3 Pulse 76 70 Resp 18 18 B/P (MAP) 121/62 (81) 111/61 (78) Pulse Ox 95 98 O2 Delivery Room Air Room Air Room Air Room Air 07/23/18 07/23/18 07/23/18 07/23/18 03:00 03:04 04:04 07:20 Temp 98.2 98.2 98.2 98.2 Pulse 76 69 Resp 18 20 20 16 B/P (MAP) 119/64 (82) 121/69 (86) Pulse Ox 95 96 O2 Delivery Room Air Room Air Room Air 07/23/18 07/23/18 07/23/18 07/23/18 07:55 08:19 11:20 12:23 Temp 98.7 98.7 Pulse 76 Resp 16 B/P (MAP) 127/72 (90) Pulse Ox 96 O2 Delivery Room Air Room Air Room Air Room Air 07/23/18 07/23/18 13:32 14:53 O2 Delivery Room Air Room Air Intake and Output 07/22/18 07/22/18 07/23/18 15:01 23:01 07:01 Intake Total 500 ml 240 ml 320 ml Output Total 550 ml 150 ml Balance 500 ml -310 ml 170 ml KATHY STILL MD Jul 23, 2018 15:07
[2018-07-23 16:00] VITALS: BP 110/61
--- NOTE | 2018-07-23 16:46 | NUR ---
Wound Care Pt received Ileostomy teaching, with son, daughter and at bedside. Pt provided with sample 1 and 2 piece bags and appliances, pt agreeable to enrollment in [employer] [place] program, paperwork signed. Ostomy bag removed from RUQ, bridge removed, per Dr. Ragland's order, pt and family taught on how to measure and cut bags, peristomal skin care, and dietary education, all questions answered at this time. POC discussed with SABI Vicente.
[2018-07-23] MEDS ORDERED: METR500T PO (18:54)
[2018-07-23] MEDS ORDERED: NAPR-514 PO (18:54)
[2018-07-23] MEDS ORDERED: ONDA8TAB9 PO (18:54)
[2018-07-23] MEDS ORDERED: OXYC1TAB15 PO (18:54)
--- NOTE | 2018-07-23 20:00 | NUR ---
Pt discharged home with HH services, by w/c to hospital entrance, accompanied by spouse and daughter. Discharge education and information regarding Dx provided to Pt, Pt's spouse and daughter. All parties verbalized understanding and had no further questions. ALDA drain discontinued prior to discharge, f/u appointment information and phone numbers provided as well as additional supplies for dressing changes. WCRNs provided Ostomy teaching and removed ostomy bridge prior to discharge. No other changes prom previous assessment.
--- NOTE | 2018-07-24 14:52 | HP ---
ADMIT DATE: 07/17/2018 ADMISSION DIAGNOSIS: Abnormal uterine bleeding, symptomatic leiomyomata. HISTORY OF PRESENT ILLNESS: This is a patient referred from Dr. Gerber with fibroids and abnormal and painful bleeding with pain for greater than 1 or 2 days. The patient states this has been going on greater than year and presented for me for consult for her symptomatic leiomyomata, chronic pelvic pain and perimenopausal uterine bleeding. The patient also had a thyroid nodule that Dr. Gerber is currently following. The patient also complains of dyspareunia. REVIEW OF SYSTEMS: Per HPI. PAST MEDICAL HISTORY: HDL, symptomatic leiomyomata, thyroid nodule. PAST SURGICAL HISTORY: Laparoscopic cholecystectomy. FAMILY HISTORY: Mother at 61 kidney failure. Father , heart attack at 55. Brother , accident 33, domestic violence. Sister of appendix at 53, liver disease. SOCIAL HISTORY: Does not smoke, drink or use any illicit drugs, 3 children, language spoken for Dr. Gerber Iranian and Hungarian. ALLERGIES: No known drug allergies. PHYSICAL EXAMINATION: VITAL SIGNS: Height 62 inches, weight 176.2, BMI is 32.23, blood pressure 141/81, pulse is 88, temperature is 98. HEENT: Head is normocephalic, atraumatic. Pupils equally round and reactive to light. LUNGS: Clear to auscultation. BREASTS: No dominant masses. BACK: No CVA tenderness. GENITOURINARY: Uterus anteflexed, 8 weeks size, mobile. No adnexal masses, normal external genitalia. Normal-appearing cervix. Path from endometrial biopsy consistent with secretory endometrium, negative for hyperplasia or atypia. IMPRESSION: Symptomatic leiomyomata, abnormal uterine bleeding/perimenopausal bleeding, chronic pelvic pain, dyspareunia, stress urinary incontinence. PLAN: Total vaginal hysterectomy with bilateral salpingo-oophorectomy, possible laparoscopic assistance, possible open procedure with the pubovesical sling by Dr. Whiteside. Risks, benefits, indications, alternatives, and expectations discussed in detail with the patient and the patient's daughter. The patient understood and agreed. CRISTIANO MENDIOLA MD DR: WANG/bradley JOB#: [id number] / [id number]
--- NOTE | 2018-07-24 15:36 | DS ---
DATE OF DISCHARGE: 07/23/2018 ADMITTING DIAGNOSES: Symptomatic leiomyomata, abnormal uterine bleeding, perimenopausal bleeding, stress urinary incontinence and dyspareunia. DISCHARGE DIAGNOSES: Symptomatic leiomyomata, abnormal uterine bleeding, perimenopausal bleeding, stress urinary incontinence and dyspareunia, status post total vaginal hysterectomy converted to laparoscopic-assisted vaginal hysterectomy converted to open total abdominal hysterectomy with bilateral salpingo-oophorectomy and repair of incidental rectal enterotomy. CONSULTANTS: Medicine, Dr. Joey Gerber; General Surgery, Dr. Rey Ragland; wound care/ostomy care. HOSPITAL COURSE: The patient's hospital course was delayed secondary to the inadvertent enterotomy and maturing her ostomy. The patient postoperatively progressed over the days in the hospital. On postop day #1, the patient was consulted by Dr. Gerber, the referring physician who himself is bilingual, was explained to her in detail, noted in his notes, the occurrence of incidental enterotomy during surgery. The patient was also informed along with her and daughter that the pubovesical sling was not performed secondary to the complication from the surgery. Dr. Rey Ragland who had intraoperative consult and was also followed the patient during her care. The patient's vaginal packing had been removed on approximately postop day #3. Stokes had removed prior to that. The patient secondary to the vaginal packing delayed removed, was started on Flagyl for bacterial vaginosis secondary to delayed removal of the vaginal packing, which was noted in the ancillary report. The patient remained afebrile and normotensive. Her white count on postop day 2 was 13, was back down to 10.5 on discharge. Hemoglobin and hematocrit stabilized at 11.4 and 34.3. She remained afebrile and normotensive. In her ALDA drain serosanguineous discharge was noted and minimal collection was also noted. Her ostomy site was working well and wound care was in-charge of that. On the day of discharge, she was ambulating in the [place] without assistance, tolerating regular diet. Instructions were gone over with her daughter and her in the room. She understood and agreed. She was informed of the postoperative care and the timing of her assessment of her ileal diversion and subsequent stress urinary incontinence procedure by Dr. Whiteside. She is to follow up with me on Monday at 10:00, which would be 07/27/2018. The patient was discharged on Flagyl, Percocet, Zofran, and naproxen. The patient was informed of routine discharge instructions, any nausea, vomiting, fever, chills, pain above beyond what she is currently experiencing, shortness of breath, oozing from her incision, problems with her diversion, swelling in her legs, abnormal discharge from her vagina, she is to call my office or return to the ER. CRISTIANO MENDIOLA MD DR: WANG/bradley JOB#: [id number] / [id number]
== END 2018-07-23 20:00 | disposition home health service (06) | DRG 742 ==
LOC: SURG 05:49 → 4 NORTH 12:30
PROVIDERS: ADMIT Specialist; ATTEND Specialist
PROC: 0UT20ZZ Resection of Bilateral Ovaries, Open Approach (ICD-10-PCS; 2018-07-17)
PROC: 0DJD8ZZ Inspection of Lower Intestinal Tract, Via Natural or Artificial Opening Endoscopic (ICD-10-PCS; 2018-07-17)
PROC: 0D1B0Z4 Bypass Ileum to Cutaneous, Open Approach (ICD-10-PCS; 2018-07-17)
PROC: 0UT90ZZ Resection of Uterus, Open Approach (ICD-10-PCS; principal; 2018-07-17 07:30)
PROC: 0UJD4ZZ Inspection of Uterus and Cervix, Percutaneous Endoscopic Approach (ICD-10-PCS; 2018-07-17 07:30)
PROC: 0UT70ZZ Resection of Bilateral Fallopian Tubes, Open Approach (ICD-10-PCS; 2018-07-17 07:30)
DX: D25.9 Leiomyoma of uterus, unspecified (principal); K56.7 Ileus, unspecified; N92.4 Excessive bleeding in the premenopausal period; E04.1 Nontoxic single thyroid nodule; N93.8 Other specified abnormal uterine and vaginal bleeding; G89.29 Other chronic pain; N76.0 Acute vaginitis; N94.10 Unspecified dyspareunia; N39.3 Stress incontinence (female) (male); E78.00 Pure hypercholesterolemia, unspecified; K66.8 Other specified disorders of peritoneum; B96.89 Other specified bacterial agents as the cause of diseases classified elsewhere; Z82.49 Family history of ischemic heart disease and other diseases of the circulatory system; Z84.1 Family history of disorders of kidney and ureter; Z53.31 Laparoscopic surgical procedure converted to open procedure; Z83.3 Family history of diabetes mellitus; E66.01 Morbid (severe) obesity due to excess calories; Z68.32 Body mass index [BMI] 32.0-32.9, adult
CPT/HCPCS: 36415; 74018; 80048; 80053; 81001; 81025; 85014; 85025; 85027; 86850; 86900; 86901; 88307; A7015; J0690; J0696; J0780; J1100; J1170; J1650; J1885; J2001; J2250; J2270; J2405; J2704; J2710; J3010; J3490; J7030; J7120; Q9968; 97116; 97535; G0378

== ENCOUNTER → 2018-09-28 | Outpatient (CLI) | payer BC ==
[~2018-09-28] MED LIST changes: +CEPH-264 PO; +DIPH25CA58 PO; +METR500T PO; +NAPR-514 PO; +ONDA8TAB9 PO; +OXYC1TAB15 PO; +PHEN-318 PO
--- NOTE | 2018-09-28 16:26 | RAD ---
Examination: BARIUM ENEMA History: ILEOSTOMY ON JULY 17 2018 AFTER BOWEL RESECTION.
FT 1.8 MINUTES
8 IMAGES Comparison/Correlation: None Findings: [employer] Rn view demonstrates right lower quadrant ostomy. Right upper quadrant surgical clips present. Single contrast barium enema examination was performed. Fluoroscopy was utilized for 1.8 minutes. 8 images were acquired with fluoroscopy. Contrast flows freely from the rectum to the cecum. Contrast noted within the appendix. No terminal ileal reflux identified. The colon diffusely has a narrow luminal caliber. No suspicious filling defect definitely identified. Significant tortuosity of the distal sigmoid colon is noted. Large quantity of retained contrast is noted throughout the colon on postevacuation imaging. No definite diverticulosis. Impression: No definite suspicious filling defect or stricture. Significant tortuosity of the distal sigmoid colon is present. Electronically signed by: Fidel Wolfe MD (09/28/2018 4:23 PM) [facility]
== END | disposition home or self-care (01) ==
LOC: RAD 07:49
PROVIDERS: ATTEND Pediatrics
DX: K62.89 Other specified diseases of anus and rectum (principal); Z93.2 Ileostomy status
CPT/HCPCS: 74270

== ENCOUNTER 2018-10-11 07:51 | Inpatient (IN) | payer BC ==
[~2018-10-11] VITALS: Ht 157.5 cm; Wt 83.0 kg
[2018-10-11] VITALS (10 sets, daily range): BP systolic 112–140; BP diastolic 59–77
[~2018-10-11 07:51] MED LIST changes: -CEPH-264 PO; -DIPH25CA58 PO; +HYDROmorphone 2 MG/ML VIAL IV PRN; +IV RINGERS,LACTATED 1000ML 1,000 ML IV SCH; +LIDOCAINE 1% PF 2 ML VIAL. ID PRN; +MORPHINE SULFATE 2 MG/ML VIAL. IV PRN; +ONDANSETRON PF 4 MG/2 ML VIAL. IV PRN; -PHEN-318 PO; +PROCHLORPERAZINE 10 MG/2 ML VIAL. IV PRN; +cefOXitin SODIUM IV Push 2 GM VIAL. IVP ONE; +fentaNYL PF VIAL 100 MCG/2 ML VIAL IV PRN
[2018-10-11] MEDS ORDERED: DIPH25CA58 PO (08:24)
[2018-10-11] MEDS: IV RINGERS,LACTATED 1000ML 1,000 ML IV SCH ×2 (08:39→13:21)
[2018-10-11] MEDS ORDERED: LIDOCAINE 1%/EPI 1:100,000 20 ML VIAL. ONE (08:46)
[2018-10-11] MEDS ORDERED: MIDAZOLAM HCL/PF 2 MG/2 ML VIAL. ONE (09:20)
[2018-10-11] MEDS ORDERED: ONDANSETRON PF 4 MG/2 ML VIAL. ONE (09:20)
[2018-10-11] MEDS ORDERED: PROPOFOL 20 ML IV ONE (09:20)
[2018-10-11] MEDS ORDERED: fentaNYL PF VIAL 100 MCG/2 ML VIAL ONE ×2 (09:20→11:52)
[2018-10-11] MEDS ORDERED: LIDOCAINE 2% PF 5 ML VIAL. ONE (09:20)
[2018-10-11] MEDS ORDERED: ROCURONIUM 50 MG/5 ML VIAL. ONE (09:20)
[2018-10-11] MEDS ORDERED: DEXAMETHASONE SOD PHOS 4 MG/ML VIAL ONE ×2 (09:20)
[2018-10-11] MEDS ORDERED: FAMOTIDINE 20 MG/2 ML VIAL ONE (09:20)
--- NOTE | 2018-10-11 10:32 | PDOC ---
SURGICAL PROGRESS NOTE Subjective 48 yo F with ileostomy. TO OR for ileostomy takedown R/R/B/A d/w pt and pt's supportive friend and . Risks, including, but not limited to: bleeding, infection, damage to surroundi ng structures, risk of anesthesia. They appear to understand, their questions are answered and they elect to proceed. Office note H&P reviewed and unchanged. Labs Laboratory Tests Test 10/11/18 08:36 Glucose (Fingerstick) 100 mg/dL (70-99) Laboratory Tests Test 10/11/18 08:36 Glucose (Fingerstick) 100 mg/dL (70-99) JACKSON ROMANO MD Oct 11, 2018 10:32
[2018-10-11] MEDS ORDERED: KETAMINE HCL IN NACL, ISO-OSM 50 MG/5 ML SYRINGE ONE (10:40)
[2018-10-11] MEDS ORDERED: GLYCOPYRROLATE 1 MG/5 ML VIAL. ONE (12:29)
[2018-10-11] MEDS ORDERED: NEOSTIGMINE METHYLSULFATE 5 MG/5 ML SYRINGE. ONE (12:29)
[2018-10-11] MEDS ORDERED: SEVOFLURANE 61 TO 120 MINUTES. IH ONE (12:29)
--- NOTE | 2018-10-11 12:40 | PDOC ---
BRIEF OPERATIVE NOTE Date: Oct 11, 2018 Pre-Op Diagnosis ABIGAIL Post-Op Diagnosis Same Procedure Performed BLadder Sling Surgeon Dr. Whiteside Anesthesia Type: General Blood Loss 50 ml (total) Specimens Obtained none Findings ABIGAIL Complications none Operative Note see dictation KALA WHITESIDE Jr, MD Oct 11, 2018 12:40
[2018-10-11] MEDS ORDERED: 0.9 % SODIUM CHLORIDE 10 ML DISP.SYRIN. IV PRN (12:45)
[2018-10-11] MEDS ORDERED: SIMETHICONE 80 MG TAB.CHEW PO PRN (12:45)
[2018-10-11] MEDS ORDERED: CALCIUM CARBONATE 500 MG TAB.CHEW PO PRN (12:45)
[2018-10-11] MEDS ORDERED: KETOROLAC 30 MG/ML VIAL. IV PRN (12:45)
[2018-10-11] MEDS ORDERED: diphenhydrAMINE 50 MG/ML VIAL IV PRN (12:45)
[2018-10-11] MEDS ORDERED: DEXTROSE 50% 25 GM / 50ML DISP.SYRIN. IV PRN (12:45)
[2018-10-11] MEDS ORDERED: ZOLPIDEM 5 MG TABLET. PO PRN (12:45)
[2018-10-11] MEDS ORDERED: NALOXONE 0.4 MG/ML VIAL. IV PRN (12:45)
[2018-10-11] MEDS ORDERED: ONDANSETRON PF 4 MG/2 ML VIAL. IV PRN (12:45)
[2018-10-11] MEDS ORDERED: PROCHLORPERAZINE 10 MG/2 ML VIAL. IV PRN (12:45)
[2018-10-11] MEDS ORDERED: diphenhydrAMINE HCL 25 MG CAPSULE PO PRN (12:45)
--- NOTE | 2018-10-11 13:03 | OP ---
DATE OF SURGERY: PREOPERATIVE DIAGNOSIS: Stress urinary incontinence. POSTOPERATIVE DIAGNOSIS: Stress urinary incontinence. PROCEDURE: Bladder sling. SURGEON: Tamir Banks MD ANESTHESIA: GETA. ESTIMATED BLOOD LOSS: 50 mL total. COMPLICATIONS: None. SUMMARY: A 48-year-old with diagnosis of stress urinary incontinence. The patient was to have ileostomy reversal by Dr. Ragland and have a combination surgery for stress urinary incontinence, which involved bladder sling placed by myself. The patient was counseled on the risks, benefits and expectations and voiced clear understanding to proceed. DESCRIPTION OF PROCEDURE: The patient was taken to surgery suite and placed in dorsal lithotomy position, prepped with Betadine solution for vaginal prep and ChloraPrep for abdominal prep and draped in sterile fashion. Dr. Ragland performed his procedure first. Please see his operative note for details. I then proceeded with the bladder sling placement. A weighted speculum was placed vaginally. Allis clamp was placed 1 cm below the urethral orifice. Second Allis clamp was placed 2 cm below the first Allis clamp on the anterior vaginal wall mucosa. A 1% lidocaine with epinephrine was injected between the 2 Allis clamps as well as in the periurethral space as well as in the insertion points of the Obtryx trocars. The trocar insertion site was at the level of the clitoris and where the abductus longus attached to the pubic rami bilaterally. An incision was made with a scalpel between the 2 Allis clamps in a linear fashion as well as in the insertion sites. The vaginal wall mucosa was dissected away from the pubovesical fascia using sharp dissection with Metzenbaum scissors as well as blunt dissection with my index finger, all the way to and through the obturator foramen bilaterally. The right trocar was then placed through the insertion point and guided with my index finger through the periurethral space. The bladder sling was then attached to the trocar and the trocar was removed in opposite fashion. Same process took place with the left trocar. Cystoscopy was then performed in which the bladder was normal. Uterovesical junctions were functioning normally. There was no evidence of bladder injury. The cystoscope was then removed. The bladder sling was then adjusted to a loose fit using size 7 Hegar dilators. The excess mesh at the groin incision was excised at the level of the skin. The skin, groin incisions were reapproximated using Dermabond. The vaginal mucosa was then reapproximated using 2-0 Vicryl suture in [id number] manner. Stokes catheter was placed, which elicited clear yellow urine. The patient tolerated the procedure well and was taken to recovery room in stable condition. Sponge and needle count correct x 3. TAMIR BANKS MD DR: RAMON/bradley JOB#: [id number] / [id number]
[2018-10-11] MEDS: PROCHLORPERAZINE 10 MG/2 ML VIAL. IV PRN ×2 (13:27→13:39)
[2018-10-11] MEDS: MORPHINE SULFATE 2 MG/ML VIAL. IV PRN ×2 (13:27→13:40)
[2018-10-11] MEDS: GABAPENTIN 300 MG CAPSULE. PO SCH ×2 (14:00→22:00)
--- NOTE | 2018-10-11 14:01 | PDOC4 ---
OPERATIVE NOTE Date: Date: Oct 11, 2018 Pre-Op Diagnosis: Hx of rectal injury, ileostomy Post-Op Diagnosis: same Procedure Performed: Ileostomy takedown Surgeon: Alec Romano Anesthesia Type: GETA Blood Loss: 50 Specimans Obtained: ileostomy Findings: no obvious abnormality Complications: none Operative Note: After obtaining informed consent, patient was taken to OR, induced under GETA and prepped in the usual fashion. Mucocutaneous junction divided with cautery. Ileostomy dissected out down below the fascia. Freed off the fascia fully and for several centimeters circumferential. Small bowel completely viable and without injury. Side to side stapled anastomosis created using ELIZABETH stapler. End sealed with ELIZABETH stapler. Crotch of anastomosis reinforced with 3 0 vicryl. Staple line oversewn with 3 0 vicryl. Anastomosis noted to be patent, under no tension and completely viable. Bowel returned to abdominal cavity. Fascia closed with 0 looped PDS in continuous fashion. Skin repaired with 3 0 vicryl, 2 0 vicryl and 4 0 monocryl in a pursestring fashion. Dressing placed. Patient tolerated procedure well and turned over to Dr. Whiteside's care. All counts correct. Wound class is dirty, 4 with ostomy. JACKSON ROMANO MD Oct 11, 2018 14:01
[2018-10-12 03:00] VITALS: BP 102/57
[2018-10-12 05:29] LABS: BASO % 0 % (0-3); EOS % 0 % (0-3); LYMPH # 1.5 x10^3/uL (1.0-4.8); LYMPH % 10 % (24-48); MEAN CORPUSCULAR HEMOGLOBIN 27 pg (25-35); MEAN CORPUSCULAR HGB CONC 34 g/dL (31-37); MEAN CORPUSCULAR VOLUME 79 fL (79-100); MONO # 1.1 x10^3/uL (0.0-1.1); MONO % 7 % (0-9); NEUT # 12.2 x10^3uL (1.8-7.7); NEUT % 82 % (31-73); PLATELET COUNT 257 x10^3/uL (140-400); RED BLOOD COUNT 4.42 x10^6/uL (3.50-5.40); RED CELL DISTRIBUTION WIDTH 14.6 % (11.5-14.5); WHITE BLOOD COUNT 14.8 x10^3/uL (4.0-11.0)
[2018-10-12] MEDS: GABAPENTIN 300 MG CAPSULE. PO SCH ×3 (06:00→21:23)
[2018-10-12 07:00] VITALS: BP 117/69
[2018-10-12] MEDS: ENOXAPARIN 40 MG/0.4 ML SYRINGE. SQ SCH (10:27)
--- NOTE | 2018-10-12 10:37 | PDOC ---
SURGICAL PROGRESS NOTE Subjective no flatus a little pain no n/v Vital Signs Vital Signs Date Time Temp Pulse Resp B/P (MAP) Pulse Ox O2 Delivery O2 Flow Rate FiO2 10/12/18 07:45 Room Air 10/12/18 07:00 97.5 75 18 117/69 (85) 98 1.0 97.5 I&O Intake and Output 10/12/18 06:59 Intake Total 1600 ml Output Total 1370 ml Balance 230 ml Intake Oral 0 ml IV Total 1600 ml Output Urine Total 1320 ml Estimated Blood Loss 50 ml # Voids 2 PATIENT HAS A CARRASQUILLO: Yes General: Alert, Oriented X3, Cooperative, No acute distress Abdomen: Soft, Other (dressing dry) Labs Laboratory Tests Test 10/11/18 08:36 10/12/18 04:10 Glucose (Fingerstick) 100 mg/dL (70-99) White Blood Count 14.8 x10^3/uL (4.0-11.0) Red Blood Count 4.42 x10^6/uL (3.50-5.40) Hemoglobin 12.0 g/dL (12.0-15.5) Hematocrit 35.0 % (36.0-47.0) Mean Corpuscular Volume 79 fL (79-100) Mean Corpuscular Hemoglobin 27 pg (25-35) Mean Corpuscular Hemoglobin Concent 34 g/dL (31-37) Red Cell Distribution Width 14.6 % (11.5-14.5) Platelet Count 257 x10^3/uL (140-400) Neutrophils (%) (Auto) 82 % (31-73) Lymphocytes (%) (Auto) 10 % (24-48) Monocytes (%) (Auto) 7 % (0-9) Eosinophils (%) (Auto) 0 % (0-3) Basophils (%) (Auto) 0 % (0-3) Neutrophils # (Auto) 12.2 x10^3uL (1.8-7.7) Lymphocytes # (Auto) 1.5 x10^3/uL (1.0-4.8) Monocytes # (Auto) 1.1 x10^3/uL (0.0-1.1) Eosinophils # (Auto) 0.0 x10^3/uL (0.0-0.7) Basophils # (Auto) 0.0 x10^3/uL (0.0-0.2) Laboratory Tests Test 10/12/18 04:10 White Blood Count 14.8 x10^3/uL (4.0-11.0) Red Blood Count 4.42 x10^6/uL (3.50-5.40) Hemoglobin 12.0 g/dL (12.0-15.5) Hematocrit 35.0 % (36.0-47.0) Mean Corpuscular Volume 79 fL (79-100) Mean Corpuscular Hemoglobin 27 pg (25-35) Mean Corpuscular Hemoglobin Concent 34 g/dL (31-37) Red Cell Distribution Width 14.6 % (11.5-14.5) Platelet Count 257 x10^3/uL (140-400) Neutrophils (%) (Auto) 82 % (31-73) Lymphocytes (%) (Auto) 10 % (24-48) Monocytes (%) (Auto) 7 % (0-9) Eosinophils (%) (Auto) 0 % (0-3) Basophils (%) (Auto) 0 % (0-3) Neutrophils # (Auto) 12.2 x10^3uL (1.8-7.7) Lymphocytes # (Auto) 1.5 x10^3/uL (1.0-4.8) Monocytes # (Auto) 1.1 x10^3/uL (0.0-1.1) Eosinophils # (Auto) 0.0 x10^3/uL (0.0-0.7) Basophils # (Auto) 0.0 x10^3/uL (0.0-0.2) Problem List s/p ileostomy takedown await bowel function MARTIN STRATTON APRN Oct 12, 2018 10:37
--- NOTE | 2018-10-12 10:43 | NUR ---
ED following for discharge planning. Discussed with RN, pt is from home and had surgery yesterday, RN anticipates pt will be here through the weekend. From last visits ED notes, pt discharged home with Garth OKEEFE. SW will continue to follow for any discharge planning needs.
[2018-10-12 11:00] VITALS: BP 106/66
--- NOTE | 2018-10-12 12:31 | PDOC ---
SURGICAL PROGRESS NOTE Subjective Pt. feeling well. Pain controlled. Vital Signs Vital Signs Date Time Temp Pulse Resp B/P (MAP) Pulse Ox O2 Delivery O2 Flow Rate FiO2 10/12/18 11:00 98.0 63 18 106/66 (79) 97 Nasal Cannula 1.0 98.0 I&O Intake and Output 10/12/18 06:59 Intake Total 1600 ml Output Total 1370 ml Balance 230 ml Intake Oral 0 ml IV Total 1600 ml Output Urine Total 1320 ml Estimated Blood Loss 50 ml # Voids 2 PATIENT HAS A EPPERSON: Yes General: Alert, Oriented X3, Cooperative HEENT: Atraumatic Lungs: Clear to auscultation Heart: Regular rate Abdomen: Normal bowel sounds, Soft, No masses Psych/Mental Status: Mental status NL Labs Laboratory Tests Test 10/11/18 08:36 10/12/18 04:10 Glucose (Fingerstick) 100 mg/dL (70-99) White Blood Count 14.8 x10^3/uL (4.0-11.0) Red Blood Count 4.42 x10^6/uL (3.50-5.40) Hemoglobin 12.0 g/dL (12.0-15.5) Hematocrit 35.0 % (36.0-47.0) Mean Corpuscular Volume 79 fL (79-100) Mean Corpuscular Hemoglobin 27 pg (25-35) Mean Corpuscular Hemoglobin Concent 34 g/dL (31-37) Red Cell Distribution Width 14.6 % (11.5-14.5) Platelet Count 257 x10^3/uL (140-400) Neutrophils (%) (Auto) 82 % (31-73) Lymphocytes (%) (Auto) 10 % (24-48) Monocytes (%) (Auto) 7 % (0-9) Eosinophils (%) (Auto) 0 % (0-3) Basophils (%) (Auto) 0 % (0-3) Neutrophils # (Auto) 12.2 x10^3uL (1.8-7.7) Lymphocytes # (Auto) 1.5 x10^3/uL (1.0-4.8) Monocytes # (Auto) 1.1 x10^3/uL (0.0-1.1) Eosinophils # (Auto) 0.0 x10^3/uL (0.0-0.7) Basophils # (Auto) 0.0 x10^3/uL (0.0-0.2) Laboratory Tests Test 10/12/18 04:10 White Blood Count 14.8 x10^3/uL (4.0-11.0) Red Blood Count 4.42 x10^6/uL (3.50-5.40) Hemoglobin 12.0 g/dL (12.0-15.5) Hematocrit 35.0 % (36.0-47.0) Mean Corpuscular Volume 79 fL (79-100) Mean Corpuscular Hemoglobin 27 pg (25-35) Mean Corpuscular Hemoglobin Concent 34 g/dL (31-37) Red Cell Distribution Width 14.6 % (11.5-14.5) Platelet Count 257 x10^3/uL (140-400) Neutrophils (%) (Auto) 82 % (31-73) Lymphocytes (%) (Auto) 10 % (24-48) Monocytes (%) (Auto) 7 % (0-9) Eosinophils (%) (Auto) 0 % (0-3) Basophils (%) (Auto) 0 % (0-3) Neutrophils # (Auto) 12.2 x10^3uL (1.8-7.7) Lymphocytes # (Auto) 1.5 x10^3/uL (1.0-4.8) Monocytes # (Auto) 1.1 x10^3/uL (0.0-1.1) Eosinophils # (Auto) 0.0 x10^3/uL (0.0-0.7) Basophils # (Auto) 0.0 x10^3/uL (0.0-0.2) Assessment/Plan POD#1 s/p Bladder Sling P: Continue post op care. Bladder challenge tomorrow. Fill bladder with 300 ml NS. Remove epperson cath. Allow patient to void immediately. If 200 ml or greater, then leave epperson cath out. If less than 200 ml, then place epperson leg b ag cath and f/u in clinic in 1 week. KALA BANKS Jr, MD Oct 12, 2018 12:31
[2018-10-12] MEDS ORDERED: BISACODYL 10 MG SUPP.RECT. PR PRN (13:30)
[2018-10-12] MEDS ORDERED: SENNOSIDES/DOCUSATE 8.6/50MG TABLET. PO PRN (13:30)
[2018-10-12 15:00] VITALS: BP 115/61
--- NOTE | 2018-10-12 17:07 | PATHOLOGY ---
[facility] Accession Number: [id number] . 01 Material submitted: . colon - ILEOSTOMY . 01 Clinical history: . Rectal hemorrhage . 02 Diagnosis: Segment of small intestine and fibroadipose tissue, ileostomy takedown: - Consistent with ileostomy, with focal mucosal edema, congestion, hemorrhage, and mild acute and chronic inflammation, and with focal scarring, foreign giant cell reaction, and chronic inflammation of fibromuscular wall. (JPM:crime scene technician; 10/12/2018) MBR/10/12/2018 . 02 Electronically signed: . Bennett Lim MD, Pathologist NPI- [id number] . 01 Gross description: . The specimen is received in formalin, labeled "Christensen, Khadijah, ileostomy" is an unoriented segment of pink-estevez gastrointestinal tissue closed with a line of flor measuring 4.4 x 2.6 x 1.8 cm which displays bulging and hemorrhagic pink estevez mucosa with a patent os. The staple line is removed and the specimen opened to reveal a pink-estevez mucosa with no gross lesions. [place] sections are submitted in A1. (SDY; 10/11/2018) SYU/SYU . 02 Pathologist provided ICD-10: Z43.2 . 02 CPT . 977653 Specimen Comment: A courtesy copy of this report has been sent to Specimen Comment: [phone], . Specimen Comment: Report sent to / DR STILL Performed at: 01 [facility] [address], [place], [place] [id number] MD Robin Florez MD Phone: [phone] Performed at: 02 [facility] [address], [place] [id number] MD Bennett Lim MD Phone: [phone]
[2018-10-12 19:00] VITALS: BP 110/65
[2018-10-12 23:00] VITALS: BP 116/61
[2018-10-13 03:00] VITALS: BP 108/62
[2018-10-13] MEDS: GABAPENTIN 300 MG CAPSULE. PO SCH ×3 (06:01→21:37)
[2018-10-13 07:00] VITALS: BP 136/74
[2018-10-13] MEDS: ENOXAPARIN 40 MG/0.4 ML SYRINGE. SQ SCH (10:44)
[2018-10-13 11:00] VITALS: BP 127/71
--- NOTE | 2018-10-13 11:45 | NUR ---
This nurse carried out free text order for this patient to inject 300 cc NS, and remove catheter. Patient at [facility] at this time attempting to empty bladder.
--- NOTE | 2018-10-13 12:25 | PDOC ---
SURGICAL PROGRESS NOTE Subjective Pt with c/o fullness pending stools, pain controlled, passing some flatus, paramjit clears Vital Signs Vital Signs Date Time Temp Pulse Resp B/P (MAP) Pulse Ox O2 Delivery O2 Flow Rate FiO2 10/13/18 11:00 98.1 84 16 127/71 (89) 96 Room Air 98.1 10/13/18 10:43 1.0 I&O Intake and Output 10/13/18 06:59 Intake Total 280 ml Output Total 775 ml Balance -495 ml Intake Oral 280 ml Output Urine Total 775 ml PATIENT HAS A EPPERSON: Yes (epperson remains in per ultrasonic hand solderer with bladder sling) General: Alert, Oriented X3, Cooperative, No acute distress Abdomen: Soft, No tenderness, Other (dressing c/d/i) Labs Laboratory Tests Test 10/12/18 04:10 White Blood Count 14.8 x10^3/uL (4.0-11.0) Red Blood Count 4.42 x10^6/uL (3.50-5.40) Hemoglobin 12.0 g/dL (12.0-15.5) Hematocrit 35.0 % (36.0-47.0) Mean Corpuscular Volume 79 fL (79-100) Mean Corpuscular Hemoglobin 27 pg (25-35) Mean Corpuscular Hemoglobin Concent 34 g/dL (31-37) Red Cell Distribution Width 14.6 % (11.5-14.5) Platelet Count 257 x10^3/uL (140-400) Neutrophils (%) (Auto) 82 % (31-73) Lymphocytes (%) (Auto) 10 % (24-48) Monocytes (%) (Auto) 7 % (0-9) Eosinophils (%) (Auto) 0 % (0-3) Basophils (%) (Auto) 0 % (0-3) Neutrophils # (Auto) 12.2 x10^3uL (1.8-7.7) Lymphocytes # (Auto) 1.5 x10^3/uL (1.0-4.8) Monocytes # (Auto) 1.1 x10^3/uL (0.0-1.1) Eosinophils # (Auto) 0.0 x10^3/uL (0.0-0.7) Basophils # (Auto) 0.0 x10^3/uL (0.0-0.2) Problem List s/p ileostomy takedown cont clears await bowel fxn epperson per ultrasonic hand solderer JACKSON ROMANO MD Oct 13, 2018 12:25
[2018-10-13 15:00] VITALS: BP 126/73
[2018-10-13 19:00] VITALS: BP 126/72
[2018-10-13 23:00] VITALS: BP 120/48
[2018-10-14 03:00] VITALS: BP 123/66
[2018-10-14] MEDS: GABAPENTIN 300 MG CAPSULE. PO SCH ×3 (06:04→21:16)
[2018-10-14 07:00] VITALS: BP 131/73
[2018-10-14] MEDS: ENOXAPARIN 40 MG/0.4 ML SYRINGE. SQ SCH ×2 (09:47→21:17)
[2018-10-14 11:00] VITALS: BP 124/70
[2018-10-14 15:00] VITALS: BP 143/80
--- NOTE | 2018-10-14 15:17 | PDOC ---
SURGICAL PROGRESS NOTE Subjective Pt with c/o mild nausea and bloating, paramjit some clears, passing flatus but no stool Vital Signs Vital Signs Date Time Temp Pulse Resp B/P (MAP) Pulse Ox O2 Delivery O2 Flow Rate FiO2 10/14/18 11:00 97.9 87 16 124/70 (88) 94 Room Air 97.9 10/13/18 10:43 1.0 I&O Intake and Output 10/14/18 07:00 Intake Total 120 ml Output Total 1550 ml Balance -1430 ml Intake Oral 120 ml Output Urine Total 1550 ml General: Alert, Oriented X3, Cooperative, No acute distress Abdomen: Soft, No tenderness Problem List s/p ileostomy takedown await improved bowel fxn cont scotts JACKSON ROMANO MD Oct 14, 2018 15:17
[2018-10-14 19:00] VITALS: BP 130/83
[2018-10-14 23:00] VITALS: BP 130/83
[2018-10-15 03:00] VITALS: BP 116/67
[2018-10-15] MEDS: GABAPENTIN 300 MG CAPSULE. PO SCH ×3 (05:34→21:08)
[2018-10-15 05:41] LABS: BASO % 0 % (0-3); EOS # 0.4 x10^3/uL (0.0-0.7); EOS % 6 % (0-3); HEMATOCRIT 35.5 % (36.0-47.0); HEMOGLOBIN 12.1 g/dL (12.0-15.5); LYMPH # 1.8 x10^3/uL (1.0-4.8); LYMPH % 26 % (24-48); MEAN CORPUSCULAR HEMOGLOBIN 27 pg (25-35); MEAN CORPUSCULAR HGB CONC 34 g/dL (31-37); MEAN CORPUSCULAR VOLUME 79 fL (79-100); MONO # 0.6 x10^3/uL (0.0-1.1); MONO % 8 % (0-9); NEUT # 4.3 x10^3uL (1.8-7.7); NEUT % 61 % (31-73); PLATELET COUNT 247 x10^3/uL (140-400); RED BLOOD COUNT 4.48 x10^6/uL (3.50-5.40); RED CELL DISTRIBUTION WIDTH 14.6 % (11.5-14.5); WHITE BLOOD COUNT 7.2 x10^3/uL (4.0-11.0)
[2018-10-15 06:11] LABS: ALBUMIN 2.5 g/dL (3.4-5.0); ALBUMIN/GLOBULIN RATIO 0.7 (1.0-1.7); CALCIUM 8.7 mg/dL (8.5-10.1); CREATININE 0.6 mg/dL (0.6-1.0); GFR 105.8; POTASSIUM 3.2 mmol/L (3.5-5.1); TOTAL BILIRUBIN 1.3 mg/dL (0.2-1.0)
[2018-10-15 07:00] VITALS: BP 115/64
--- NOTE | 2018-10-15 09:37 | PDOC ---
SURGICAL PROGRESS NOTE Subjective tolerating clears no n/v pain minimal + flatus and stool Vital Signs Vital Signs Date Time Temp Pulse Resp B/P (MAP) Pulse Ox O2 Delivery O2 Flow Rate FiO2 10/15/18 03:00 98.3 71 16 116/67 (83) 92 Room Air 98.3 I&O Intake and Output 10/15/18 06:59 Intake Total 120 ml Output Total 2630 ml Balance -2510 ml Intake Oral 120 ml Output Urine Total 2630 ml # Bowel Movements 1 PATIENT HAS A CARRASQUILLO: Yes General: Alert, Oriented X3, Cooperative, No acute distress Abdomen: Soft, Other (ND, incision c/d/i, no erythema ) Labs Laboratory Tests Test 10/15/18 05:07 White Blood Count 7.2 x10^3/uL (4.0-11.0) Red Blood Count 4.48 x10^6/uL (3.50-5.40) Hemoglobin 12.1 g/dL (12.0-15.5) Hematocrit 35.5 % (36.0-47.0) Mean Corpuscular Volume 79 fL (79-100) Mean Corpuscular Hemoglobin 27 pg (25-35) Mean Corpuscular Hemoglobin Concent 34 g/dL (31-37) Red Cell Distribution Width 14.6 % (11.5-14.5) Platelet Count 247 x10^3/uL (140-400) Neutrophils (%) (Auto) 61 % (31-73) Lymphocytes (%) (Auto) 26 % (24-48) Monocytes (%) (Auto) 8 % (0-9) Eosinophils (%) (Auto) 6 % (0-3) Basophils (%) (Auto) 0 % (0-3) Neutrophils # (Auto) 4.3 x10^3uL (1.8-7.7) Lymphocytes # (Auto) 1.8 x10^3/uL (1.0-4.8) Monocytes # (Auto) 0.6 x10^3/uL (0.0-1.1) Eosinophils # (Auto) 0.4 x10^3/uL (0.0-0.7) Basophils # (Auto) 0.0 x10^3/uL (0.0-0.2) Sodium Level 142 mmol/L (136-145) Potassium Level 3.2 mmol/L (3.5-5.1) Chloride Level 105 mmol/L (98-107) Carbon Dioxide Level 28 mmol/L (21-32) Anion Gap 9 (6-14) Blood Urea Nitrogen 4 mg/dL (7-20) Creatinine 0.6 mg/dL (0.6-1.0) Estimated GFR (Cockcroft-Gault) 105.8 BUN/Creatinine Ratio 7 (6-20) Glucose Level 121 mg/dL (70-99) Calcium Level 8.7 mg/dL (8.5-10.1) Total Bilirubin 1.3 mg/dL (0.2-1.0) Aspartate Amino Transf (AST/SGOT) 104 U/L (15-37) Alanine Aminotransferase (ALT/SGPT) 185 U/L (14-59) Alkaline Phosphatase 279 U/L (46-116) Total Protein 6.0 g/dL (6.4-8.2) Albumin 2.5 g/dL (3.4-5.0) Albumin/Globulin Ratio 0.7 (1.0-1.7) Laboratory Tests Test 10/15/18 05:07 White Blood Count 7.2 x10^3/uL (4.0-11.0) Red Blood Count 4.48 x10^6/uL (3.50-5.40) Hemoglobin 12.1 g/dL (12.0-15.5) Hematocrit 35.5 % (36.0-47.0) Mean Corpuscular Volume 79 fL (79-100) Mean Corpuscular Hemoglobin 27 pg (25-35) Mean Corpuscular Hemoglobin Concent 34 g/dL (31-37) Red Cell Distribution Width 14.6 % (11.5-14.5) Platelet Count 247 x10^3/uL (140-400) Neutrophils (%) (Auto) 61 % (31-73) Lymphocytes (%) (Auto) 26 % (24-48) Monocytes (%) (Auto) 8 % (0-9) Eosinophils (%) (Auto) 6 % (0-3) Basophils (%) (Auto) 0 % (0-3) Neutrophils # (Auto) 4.3 x10^3uL (1.8-7.7) Lymphocytes # (Auto) 1.8 x10^3/uL (1.0-4.8) Monocytes # (Auto) 0.6 x10^3/uL (0.0-1.1) Eosinophils # (Auto) 0.4 x10^3/uL (0.0-0.7) Basophils # (Auto) 0.0 x10^3/uL (0.0-0.2) Sodium Level 142 mmol/L (136-145) Potassium Level 3.2 mmol/L (3.5-5.1) Chloride Level 105 mmol/L (98-107) Carbon Dioxide Level 28 mmol/L (21-32) Anion Gap 9 (6-14) Blood Urea Nitrogen 4 mg/dL (7-20) Creatinine 0.6 mg/dL (0.6-1.0) Estimated GFR (Cockcroft-Gault) 105.8 BUN/Creatinine Ratio 7 (6-20) Glucose Level 121 mg/dL (70-99) Calcium Level 8.7 mg/dL (8.5-10.1) Total Bilirubin 1.3 mg/dL (0.2-1.0) Aspartate Amino Transf (AST/SGOT) 104 U/L (15-37) Alanine Aminotransferase (ALT/SGPT) 185 U/L (14-59) Alkaline Phosphatase 279 U/L (46-116) Total Protein 6.0 g/dL (6.4-8.2) Albumin 2.5 g/dL (3.4-5.0) Albumin/Globulin Ratio 0.7 (1.0-1.7) Assessment/Plan s/p ileostomy takedown advance diet dc coffee roaster helper plans are home with zhou and FU with MEDICAL LAB TECHNOLOGIST MARTIN STRATTON FIRE FIGHTING EQUIPMENT SPECIALIST Oct 15, 2018 09:37
[2018-10-15 11:00] VITALS: BP 121/71
[2018-10-15] MEDS: oxyCODONE/APAP 5/325 1 TAB TABLET PO PRN ×3 (11:37→22:43)
--- NOTE | 2018-10-15 11:42 | NUR ---
SW following. Discussed with RN. Pt advancing diet and stopping MOLD DUMPER today. RN advised no SW needs at this time. SW will continue to follow.
[2018-10-15 15:00] VITALS: BP 119/68
[2018-10-15 19:45] VITALS: BP 125/70
[2018-10-15 23:00] VITALS: BP 131/72
[2018-10-16 02:54] VITALS: BP 111/60
[2018-10-16] MEDS: GABAPENTIN 300 MG CAPSULE. PO SCH ×3 (06:14→21:23)
[2018-10-16 07:00] VITALS: BP 114/67
[2018-10-16] MEDS: ENOXAPARIN 40 MG/0.4 ML SYRINGE. SQ SCH (10:00)
--- NOTE | 2018-10-16 10:00 | NUR ---
[employer] off-line: Enoxaparin given / not scanned
[2018-10-16 11:00] VITALS: BP 101/56
--- NOTE | 2018-10-16 12:00 | NUR ---
[facility] off-line most of this day shift -- see paper MAR for medication administration.
--- NOTE | 2018-10-16 12:05 | NUR ---
SW following. Discussed with RN, pt on full liquid diet, possible discharge home today with family. RN advised no SW needs.
--- NOTE | 2018-10-16 14:37 | PDOC ---
SURGICAL PROGRESS NOTE Subjective Pt without c/o, paramjit PO, passing flatus, but no stools Vital Signs Vital Signs Date Time Temp Pulse Resp B/P (MAP) Pulse Ox O2 Delivery O2 Flow Rate FiO2 10/16/18 11:00 97.9 75 18 101/56 (71) 95 97.9 10/16/18 07:00 Room Air 10/15/18 22:43 1.0 I&O Intake and Output 10/16/18 07:00 Intake Total 751 ml Output Total 3250 ml Balance -2499 ml Intake Oral 736 ml IV Total 15 ml Output Urine Total 3250 ml PATIENT HAS A EPPERSON: Yes (per photographic press screwmaker) General: Alert, Oriented X3, Cooperative, No acute distress Abdomen: Soft, No tenderness, Other (dressing c/d/i) Labs Laboratory Tests Test 10/15/18 05:07 White Blood Count 7.2 x10^3/uL (4.0-11.0) Red Blood Count 4.48 x10^6/uL (3.50-5.40) Hemoglobin 12.1 g/dL (12.0-15.5) Hematocrit 35.5 % (36.0-47.0) Mean Corpuscular Volume 79 fL (79-100) Mean Corpuscular Hemoglobin 27 pg (25-35) Mean Corpuscular Hemoglobin Concent 34 g/dL (31-37) Red Cell Distribution Width 14.6 % (11.5-14.5) Platelet Count 247 x10^3/uL (140-400) Neutrophils (%) (Auto) 61 % (31-73) Lymphocytes (%) (Auto) 26 % (24-48) Monocytes (%) (Auto) 8 % (0-9) Eosinophils (%) (Auto) 6 % (0-3) Basophils (%) (Auto) 0 % (0-3) Neutrophils # (Auto) 4.3 x10^3uL (1.8-7.7) Lymphocytes # (Auto) 1.8 x10^3/uL (1.0-4.8) Monocytes # (Auto) 0.6 x10^3/uL (0.0-1.1) Eosinophils # (Auto) 0.4 x10^3/uL (0.0-0.7) Basophils # (Auto) 0.0 x10^3/uL (0.0-0.2) Sodium Level 142 mmol/L (136-145) Potassium Level 3.2 mmol/L (3.5-5.1) Chloride Level 105 mmol/L (98-107) Carbon Dioxide Level 28 mmol/L (21-32) Anion Gap 9 (6-14) Blood Urea Nitrogen 4 mg/dL (7-20) Creatinine 0.6 mg/dL (0.6-1.0) Estimated GFR (Cockcroft-Gault) 105.8 BUN/Creatinine Ratio 7 (6-20) Glucose Level 121 mg/dL (70-99) Calcium Level 8.7 mg/dL (8.5-10.1) Total Bilirubin 1.3 mg/dL (0.2-1.0) Aspartate Amino Transf (AST/SGOT) 104 U/L (15-37) Alanine Aminotransferase (ALT/SGPT) 185 U/L (14-59) Alkaline Phosphatase 279 U/L (46-116) Total Protein 6.0 g/dL (6.4-8.2) Albumin 2.5 g/dL (3.4-5.0) Albumin/Globulin Ratio 0.7 (1.0-1.7) Problem List s/p ileostomy takedown await bowel fxn given mag citrate will need to go home with epperson per photographic press screwmaker JACKSON ROMANO MD Oct 16, 2018 14:37
[2018-10-16] MEDS ORDERED: MAGNESIUM CITRATE 296 ML SOLUTION. PO ONE (14:45)
[2018-10-16 15:00] VITALS: BP 122/71
--- NOTE | 2018-10-16 15:45 | NUR ---
Dr. Krishnan stopped me in the [place] to order a dietary change for the patient, Advance as tolerated to Regular. [facility] is off-line; hence, the written script. Resumed my lunch break (after the two Doctor conferences totaling 20 min.), at which time CN requested I cut lunch short (which just began and totaled only 5 minutes so far since I was in Doctor conferences) to discharge a patient in another room requested by ED at 15:10 at the start of my lunch. Thankfully, ETELVINA said she would help with the discharge, and I was able to grab a few bites for improved energy for patient care.
[2018-10-16 19:00] VITALS: BP 119/74
[2018-10-16 23:00] VITALS: BP 117/63
[2018-10-17 03:00] VITALS: BP 139/73
[2018-10-17] MEDS: oxyCODONE/APAP 5/325 1 TAB TABLET PO PRN (05:16)
[2018-10-17] MEDS: GABAPENTIN 300 MG CAPSULE. PO SCH ×2 (05:17→13:02)
[2018-10-17 07:00] VITALS: BP 120/65
[2018-10-17] MEDS: ENOXAPARIN 40 MG/0.4 ML SYRINGE. SQ SCH (08:22)
[2018-10-17 11:00] VITALS: BP 108/64
--- NOTE | 2018-10-17 11:16 | NUR ---
SW following. Discussed with RN, pt discharging home today with family and self care. RN advised no SW needs.
--- NOTE | 2018-10-17 12:28 | DISCH ---
DISCHARGE INSTRUCTIONS Condition on Discharge Condition on Discharge: Stable Activity After Discharge Activity Instructions for Disc: Activity as tolerated, Avoid exertion Other activity instructions: No lifting >20lbs for 4 weeks Bathing Instructions: No Tub Bath until see Exercise Instruction after Dis: Progress as tolerated Driving Instructions after Dis: No driving for 2 weeks Weight Bearing Status after Di: No restrictions Diet after Discharge Diet after Discharge: Regular Diet Texture: Regular Liquid Texture: Thin Liquid Swallowing Supervision: None needed Wound Incision Care Wound/Incision Care: Change dressing Wound Care Equipment: Dressings Contacting the after DC Call your doctor for: If your condition worsens Follow-Up Follow up with: Dr Ragland in 2 weeks Treatment/Equipment after DC Adaptive Equipment Issued: HUGO Nelson MD October 17, 2018 12:28
--- NOTE | 2018-10-17 12:32 | PDOC3 ---
Discharge Summary Visit Information Date of Admission: Oct 12, 2018 Date of Discharge: October 17, 2018 Admitting Diagnosis: Ileostomy and urinary incontinece Final Diagnosis Ileostomy takedown Brief Hospital Course Allergies Allergies Coded Allergies Type Severity Reaction Last Updated Verified No Known Drug Allergies 10/11/18 No Vital Signs Vital Signs Date Time Temp Pulse Resp B/P (MAP) Pulse Ox O2 Delivery O2 Flow Rate FiO2 10/17/18 11:00 98.3 64 18 108/64 (79) 95 Room Air 98.3 10/16/18 08:00 1.0 Brief Hospital Course Ms. Christensen is a 48 old female who had an ileostomy takedown and bladder sling by Dr. Hussein for stress incontinece. She has done well and is passing stool tolerating regular diet Discharge Information Condition at Discharge: Improved Follow Up: Weeks ([address] Ragland and [address] Whiteside) Disposition/Orders: D/C to Home Scheduled PRN Diphenhydramine Hcl (Benadryl) 25 Mg Capsule, 25 MG PO PRN PRN for ALLERGIES, (Reported) Entered as Reported by: CYNTHIA SORIANO on 10/11/18823 Last Taken: Unknown Dose on 10/09/18 Last Action: New Order on 10/11/18823 by CYNTHIA SORIANO Discontinued Medications Info (No Known Medications Prior To Admisstion) Each, 1 EACH MC DAILY for NA, (Reported) Entered as Reported by: MIGUE CHICAS on 07/17/18 0616 Last Action: Discontinued on 10/11/18823 by HUGO SPARKS MD October 17, 2018 12:32
--- NOTE | 2018-10-17 13:09 | NUR ---
Discharge Note: DUC DELANEY [place] Discharge instructions and discharge home medications reviewed with Patient and family member and a copy given. All questions have been answered and understanding verbalized. The following instructions and handouts were given: educated patient on epperson care and emptying, wound care, medications, follow ups. Discontinued lines and drains: no IV line present. Patient discharged to home with self care with family member, wheelchair used for mobility to discharge vehicle.
== END 2018-10-17 13:09 | disposition home or self-care (01) | DRG 331 ==
LOC: OPSVCIP 07:51 → 4 NORTH 14:07
PROVIDERS: ADMIT Surgery; ATTEND Surgery
PROC: 0TSC0ZZ Reposition Bladder Neck, Open Approach (ICD-10-PCS; principal; 2018-10-11 10:15)
PROC: 0DBB0ZZ Excision of Ileum, Open Approach (ICD-10-PCS; 2018-10-11 10:15)
DX: Z43.2 Encounter for attention to ileostomy (principal); N39.3 Stress incontinence (female) (male); E78.5 Hyperlipidemia, unspecified; Z82.49 Family history of ischemic heart disease and other diseases of the circulatory system; Z83.3 Family history of diabetes mellitus; Z84.89 Family history of other specified conditions
CPT/HCPCS: 36415; 80053; 82962; 85025; 88304; A7015; J0694; J0780; J1100; J1650; J1885; J2001; J2250; J2270; J2405; J2704; J2710; J3010; J3490; J7030; J7120; 97116; A4461; C1771

== ENCOUNTER 2018-10-19 18:32 | Emergency (ER) | payer BC ==
[~2018-10-19] VITALS: Ht 157.5 cm; Wt 81.6 kg
[~2018-10-19 18:32] MED LIST changes: +DIPH25CA58 PO; -HYDROmorphone 2 MG/ML VIAL IV PRN; -IV RINGERS,LACTATED 1000ML 1,000 ML IV SCH; -LIDOCAINE 1% PF 2 ML VIAL. ID PRN; -MORPHINE SULFATE 2 MG/ML VIAL. IV PRN; -ONDANSETRON PF 4 MG/2 ML VIAL. IV PRN; -PROCHLORPERAZINE 10 MG/2 ML VIAL. IV PRN; -cefOXitin SODIUM IV Push 2 GM VIAL. IVP ONE; -fentaNYL PF VIAL 100 MCG/2 ML VIAL IV PRN
--- NOTE | 2018-10-19 19:28 | PHYS DOC ---
Past Medical History Past Medical History: No Pertinent History (ANA PAULA ABURTO) Past Surgical History: Cholecystectomy, Hysterectomy, Other Additional Past Surgical Histo: TEMPORARY COLOSTOMY PLACEMENT. (ANA PAULA ABURTO) Alcohol Use: None Drug Use: None (ANA PAULA ABURTO) Adult General Chief Complaint Chief Complaint: URINE CATHETER PROBLEM HPI HPI Patient is a 48 year old F who recently underwent a colostomy reversal and bladder sling surgery by Doctornoreen Mendoza. She is here because the epperson catheter she has in is burning horribly and she noticed the urine looked very dark. She has some mild abdominal discomfort around her colostomy reversal site but states not anything unexpected. She denies fevers. She reports normal bowel movements and has been eating and drinking without difficulty. She has scheduled f/u this next Mon with Dr. Fried but states the oxycodone isn't helping the burning from the epperson catheter. (ANA PAULA ABURTO) Review of Systems Review of Systems Constitutional: Denies fever or chills [] Respiratory: Denies cough or shortness of breath [] Cardiovascular: Denies chest pain GI: Denies nausea, vomiting, bloody stools or diarrhea. MIld abd pain around surgical site. : Reports burning pain in urethra. Dark urine. Musculoskeletal: Denies back pain or joint pain [] Integument: Surgical incision. Neurologic: Denies headache, focal weakness or sensory changes [] All other systems were reviewed and found to be within normal limits, except as documented in this note. (ANA PAULA ABURTO) Current Medications Current Medications Current Medications Medications (Trade) Dose Ordered Sig/Lima Start Time Stop Time Status Last Admin Dose Admin Ceftriaxone Sodium (Rocephin Im) 1 gm 1X ONCE 10/19/18 19:30 10/19/18 19:31 DC 10/19/18 19:55 1 GM Phenazopyridine HCl (Pyridium) 200 mg 1X ONCE 10/19/18 19:30 10/19/18 19:31 DC 10/19/18 19:55 200 MG (STEVEN HUNTER MD) Allergies Allergies Allergies Coded Allergies Type Severity Reaction Last Updated Verified No Known Drug Allergies 10/11/18 No (STEVEN HUNTER MD) Physical Exam Physical Exam Constitutional: Well developed, well nourished, no acute distress, non-toxic appearance. [] Neck: Normal range of motion, no tenderness, supple, no stridor. [] Cardiovascular:Heart rate regular rhythm, no murmur [] Lungs & Thorax: Bilateral breath sounds clear to auscultation [] Abdomen: Bowel sounds normal, soft, no tenderness, no masses, no pulsatile masses. [] Skin: Warm, dry, no erythema, no rash. Surgical incision on abdomen covered with bandage. No signs of erythema or drainage noted. Back: No tenderness, no CVA tenderness. [] Extremities: No tenderness, no cyanosis, no clubbing, ROM intact, no edema. [] Neurologic: Alert and oriented X 3, normal motor function, normal sensory function, no focal deficits noted. [] Psychologic: Affect normal, judgement normal, mood normal. [] : External vaginal inspection done, no urethral meatus blood or purulent discharge noted. Cherrie colored urine in catheter tubing, draining well. (ANA PAULA ABURTO) Current Patient Data Vital Signs Vital Signs Date Time Temp Pulse Resp B/P (MAP) Pulse Ox O2 Delivery O2 Flow Rate FiO2 10/19/18 20:03 71 18 126/68 (87) 97 Room Air 10/19/18 19:00 97.8 97.8 (STEVEN HUNTER MD) Lab Values Laboratory Tests Test 10/19/18 19:08 Urine Collection Type Unknown Urine Color Yellow Urine Clarity Cloudy Urine pH 5.5 Urine Specific [place] 1.020 Urine Protein 100 mg/dL (NEG-TRACE) Urine Glucose (UA) Negative mg/dL (NEG) Urine Ketones (Stick) Negative mg/dL (NEG) Urine Blood Large (NEG) Urine Nitrite Positive (NEG) Urine Bilirubin Negative (NEG) Urine Urobilinogen Dipstick 1.0 mg/dL (0.2 mg/dL) Urine Leukocyte Esterase Large (NEG) Urine RBC >40 /HPF (0-2) Urine WBC Tntc /HPF (0-4) Urine Squamous Epithelial Cells Occ /LPF Urine Bacteria Many /HPF (0-FEW) Microbiology 10/19/18 Urine Culture - Preliminary, Resulted 10/19/18 Urine Culture Result 1 (SARAH) - Preliminary, Resulted (STEVEN HUNTER MD) Lab Values Laboratory Tests Test 10/19/18 19:08 Urine Collection Type Unknown Urine Color Yellow Urine Clarity Cloudy Urine pH 5.5 Urine Specific [place] 1.020 Urine Protein 100 mg/dL (NEG-TRACE) Urine Glucose (UA) Negative mg/dL (NEG) Urine Ketones (Stick) Negative mg/dL (NEG) Urine Blood Large (NEG) Urine Nitrite Positive (NEG) Urine Bilirubin Negative (NEG) Urine Urobilinogen Dipstick 1.0 mg/dL (0.2 mg/dL) Urine Leukocyte Esterase Large (NEG) Urine RBC >40 /HPF (0-2) Urine WBC Tntc /HPF (0-4) Urine Squamous Epithelial Cells Occ /LPF Urine Bacteria Many /HPF (0-FEW) (ANA PAULA ABURTO) EKG EKG [] (ANA PAULA ABURTO) Radiology/Procedures Radiology/Procedures [] (ANA PAULA ABURTO) Course & Med Decision Making Course & Med Decision Making Pertinent Labs and Imaging studies reviewed. (See chart for details) Pt with UTI, but otherwise appears very stable. Rocephin given IM along with pyridium. Warned pt that her urine in epperson bag will turn bright orange/red from pyridium. Pt offered blood work and IV fluids but declined stating she was just more concerning about the epperson. I did ask her to call her surgeon on Monday to let them know of ER visit and UTI. She agrees with plan. Pt to return to ER with any fevers, worsening discomfort or changes. Pt discharged to home. (ANA PAULA ABURTO) Course & Med Decision Making Staff Physician Addendum: I was working in the ER during the course of this patient's visit. I was available for consultation as needed, but I was not directly involved in the care of this patient. (SETVEN HUNTER MD) Dragon Disclaimer Dragon Disclaimer This electronic medical record was generated, in whole or in part, using a voice recognition dictation system. (ANA PAULA ABURTO) Departure Departure Impression: Primary Impression: UTI (urinary tract infection) Additional Impression: Epperson catheter in place Disposition: HOME, SELF-CARE Condition: STABLE Referrals: KATHY STILL MD (PCP) Patient Instructions: Urinary Tract Infection, Child Additional Instructions: Push lots of fluids to help flush urine. Call your doctor on Monday morning to let them know you were seen and developed a urinary tract infection. The medicine we are prescribing is an antibiotic but also a medicine that helps numb the urethra where the epperson catheter can cause irritation, this medicine, called Pyridium, causes the urine to turn bright orange/red, so do not be alarmed when you see this color of urine in the epperson bag. If you develop fevers, or worsening pain or symptoms, return to the ER. Scripts Phenazopyridine Hcl (PYRIDIUM) 200 Mg Tablet 200 MG PO TID for 2 Days, #6 TAB Prov: ANA PAULA ABURTO 10/19/18 Cephalexin (KEFLEX) 500 Mg Capsule 1 CAP PO TID, #21 CAP Prov: ANA PAULA ABURTO 10/19/18 Problem Qualifiers ANA PAULA ABURTO October 19, 2018 19:28 STEVEN HUNTER MD October 22, 2018 04:58
[2018-10-19] MEDS ORDERED: PHENAZOPYRIDINE 200 MG TABLET. PO ONE (19:30)
[2018-10-19] MEDS ORDERED: cefTRIAXone IM 1 GM VIAL IM ONE (19:30)
[2018-10-19 19:32] LABS: BILIRUBIN,URINE NEGATIVE (NEG); CLARITY,URINE CLOUDY; COLOR,URINE YELLOW; NITRITE,URINE POSITIVE (NEG); PH,URINE 5.5; PROTEIN,URINE 100 mg/dL (NEG-TRACE)
[2018-10-19 19:40] LABS: BACTERIA,URINE MANY /HPF (0-FEW); RBC,URINE >40 /HPF (0-2); SQUAMOUS EPITHELIAL CELL,UR OCC /LPF; WBC,URINE TNTC /HPF (0-4)
[2018-10-19] MEDS ORDERED: CEPH-264 PO (19:56)
[2018-10-19] MEDS ORDERED: PHEN-318 PO (19:56)
[2018-10-19 20:03] VITALS: BP 126/68
== END 2018-10-19 20:09 | disposition home or self-care (01) ==
LOC: ER 18:32
DX: N39.0 Urinary tract infection, site not specified (principal); Z96.0 Presence of urogenital implants; Z90.49 Acquired absence of other specified parts of digestive tract; Z90.710 Acquired absence of both cervix and uterus; Z93.3 Colostomy status
CPT/HCPCS: 81001; 87086; 96372; 99284; J0696; 87186

== ENCOUNTER → 2018-12-03 | Outpatient (CLI) | payer BC ==
[~2018-12-03] MED LIST changes: +CEPH-264 PO; +PHEN-318 PO
--- NOTE | 2018-12-03 16:13 | RAD ---
Bilateral breast ultrasound, 12/03/2018: HISTORY: Six-month follow-up Comparison is made to a study 06/04/2018. The previous study demonstrated multiple simple cysts in both breasts as well as several probably complicated cyst. Today we targeted the nodules which were thought to be complicated cysts. At the 3:00 location in the right breast approximately 5 cm from the nipple there is a small 2 x 2 x 2 mm hypoechoic nodule. It has decreased in size since the previous study at which time it measured 5 x 6 x 3 mm. This suggests a benign etiology. At the 9:00 location in the right breast approximately 8 cm from the nipple there is a 3 x 3 x 3 mm hypoechoic nodule which measured 4 x 3 x 5 mm on the previous study. There are heterogeneous low level internal echoes. This is probably a complicated cyst. At the 10:00 location in the left breast approximate 6 cm from the nipple there is a 2 x 2 x 2 mm hypoechoic nodule with posterior acoustic enhancement. It has decreased in size since the previous study at which time it measured 6 mm. IMPRESSION: The targeted nodules have decreased in size since the previous study compatible with a benign etiology. Bilateral mammography in 6 months is suggested. BI-RADS 4-probably benign findings
== END | disposition home or self-care (01) ==
LOC: US 15:05
PROVIDERS: ATTEND Family Medicine
DX: N63.11 Unspecified lump in the right breast, upper outer quadrant (principal); N63.14 Unspecified lump in the right breast, lower inner quadrant; N63.22 Unspecified lump in the left breast, upper inner quadrant; N60.02 Solitary cyst of left breast; N60.01 Solitary cyst of right breast
CPT/HCPCS: 76641

== ENCOUNTER → 2019-05-08 | Outpatient (CLI) | payer BC ==
--- NOTE | 2019-05-09 08:43 | RAD ---
EXAM: Thyroid ultrasound HISTORY: Thyroid nodule. COMPARISON: 05/24/2018. FINDINGS: Sonographic evaluation of the thyroid gland was performed. The right lobe measures 4.1 x 1.5 x 1.4 cm. The parenchyma is mildly heterogeneous without focal lesions. The previously noted nodule is seen only as a region of mild background heterogeneity currently. A tiny cyst at the upper pole measures only 1 mm and is likely benign. The left lobe measures 4.1 x 1.4 x 1.3 cm. The parenchyma is homogeneous without focal lesions. The isthmus measures 3.5 mm. IMPRESSION: 1. No suspicious nodules. The previously noted site of concern along the right lower pole is no longer seen. Electronically signed by: Shelly Vasquez MD (05/09/2019 8:40 AM) [facility]
== END | disposition home or self-care (01) ==
LOC: US 15:44
PROVIDERS: ATTEND Otolaryngology
DX: E04.1 Nontoxic single thyroid nodule (principal)
CPT/HCPCS: 76536

== ENCOUNTER → 2019-10-23 | Outpatient (CLI) | payer BC ==
--- NOTE | 2019-10-23 16:36 | RAD ---
THYROID ULTRASOUND History: Thyroid nodule Comparison: May 08, 2019; May 24, 2018 Findings: Multiple sonographic images of the thyroid gland are submitted. Right lobe measured 4.5 x 1.2 x 1.4 cm. Left lobe measured 4.5 x 1.2 x 1.4 cm. No discrete nodule is identified of the right thyroid gland. There is a new small hypoechoic lesion of the superior left thyroid gland about 0.6 m in size, some increased through transmission and not associated with internal vascularity on color Doppler imaging. Isthmus of the thyroid gland measured about 0.4 cm in AP thickness. Impression: 1. There is a new small cyst of the superior left thyroid gland. There is no right thyroid nodularity. Electronically signed by: Jayme Bosch MD (10/23/2019 4:34 PM) [facility]
== END | disposition home or self-care (01) ==
LOC: US 14:41
PROVIDERS: ATTEND Otolaryngology
DX: E04.1 Nontoxic single thyroid nodule (principal)
CPT/HCPCS: 76536

== ENCOUNTER → 2019-11-26 | Outpatient (CLI) | payer BC ==
--- NOTE | 2019-11-26 16:52 | RAD ---
BILATERAL SCREENING MAMMOGRAM, 3-D History: Routine screening. Comparison: 05/24/2018. Technique: MLO and CC digital tomosynthesis (3D) images obtained. Radiologist reviewed these images on dedicated workstation. Findings: Breast Tissue Density B : There are scattered areas of fibroglandular density. There are no dominant masses, suspicious microcalcifications, or architectural distortion. Significant decrease in size of a previously seen right central breast mass probably represented a cyst is noted in the interval. No new masses suspected. IMPRESSION: No mammographic evidence of malignancy. Recommend routine screening. BI-RADS category 1: Negative. The images were reviewed with computer-aided detection. Patient information is entered into reminder system with a target due date for the next screening mammogram. Mammography is the most sensitive method for finding small breast cancers, but it does not detect them all and is not a substitute for careful clinical examination. A negative mammogram does not negate a clinically suspicious finding and should not result in delay in biopsying a clinically suspicious abnormality. "Our facility is accredited by the [employer] Mammography Program." Electronically signed by: Fidel Wolfe MD (11/26/2019 4:49 PM) [facility]
== END ==
LOC: MAMMO 10:19
PROVIDERS: ATTEND Family Medicine
DX: Z12.31 Encounter for screening mammogram for malignant neoplasm of breast (principal)
CPT/HCPCS: 77063; 77067

== ENCOUNTER → 2020-12-08 | Outpatient (CLI) | payer BC, OTHER ==
--- NOTE | 2020-12-08 16:55 | RAD ---
EXAM: BILATERAL DIGITAL 3D SCREENING MAMMOGRAPHY. HISTORY: Routine mammographic screening. TECHNIQUE: Bilateral digital 3D and tomographic images were obtained in CC and MLO projections. Compu ter-aided detection was applied. COMPARISON: 11/26/2019, 05/24/2019. COMPOSITION: C. The breasts are heterogeneously dense, which may obscure small masses. FINDINGS: Multiple obscured masses have developed throughout both breasts. These most likely reflect cysts. A few scattered calcifications appear benign. BI-RADS CATEGORY 0: Incomplete--Needs Additional Imaging Evaluation. RECOMMENDATION: 1. Sonography of both breasts to assess multiple new masses bilaterally, most likely reflecting devel oping cysts. Electronically signed by: Shelly Vasquez MD (12/08/2020 4:53 PM) [id number]
== END ==
LOC: MAMMO 15:25
PROVIDERS: ATTEND Family Medicine
DX: Z12.31 Encounter for screening mammogram for malignant neoplasm of breast (principal); N63.20 Unspecified lump in the left breast, unspecified quadrant; N63.10 Unspecified lump in the right breast, unspecified quadrant
CPT/HCPCS: 77063; 77067

== ENCOUNTER → 2020-12-18 | Outpatient (CLI) | payer OTHER ==
--- NOTE | 2020-12-18 14:47 | RAD ---
EXAM: Bilateral breast sonogram. HISTORY: 50-year-old female presents for evaluation of findings within both breasts demonstrate on a mammogram dated 12/08/2020. TECHNIQUE: Sonographic imaging of both breasts including all 4 quadrants and protrusions was performe d. COMPARISON: Mammogram dated 12/08/2020 and sonograms dated 12/03/2018 and 06/04/2018. FINDINGS: Sonographic imaging of the right breast demonstrates multiple simple and complicated cysts and suspected benign fibrocystic lesions. For reference purposes, the largest lesions include a 1.2 c m suspected complicated cyst or cluster of cysts at the 2:00 position 3 cm from the nipple and a 10 m m cyst with suspected internal debris at the 10:00 position 3 cm from the nipple. There is a circumsc ribed hypoechoic lesion measuring 7 mm at the 9:00 position 6.5 cm from the nipple, possibly fibroade nomatoid in etiology. There are benign-appearing axillary lymph nodes. Sonographic imaging of the left breast demonstrates multiple simple and complicated cysts and suspect ed benign fibrocystic lesions. For reference purposes, the largest lesions include a 1.3 cm complicat ed cyst or cluster of cysts at the 6:00 retroareolar location and a 1.1 cm complicated cyst at the 10 :00 position 5 cm from the nipple. There are dilated ducts within the chronic left position 1 cm from the nipple. There are benign axillary lymph nodes. IMPRESSION: 1. Multiple benign-appearing cystic and fibrocystic lesions throughout both breasts, the largest of w hich are described in detail above. There may also be a 7 mm solid fibroadenomatoid lesion at the 9:0 0 position of the right breast. No convincing suspicious lesion is seen. These findings correspond wi th areas of mammographic nodularity. 2. BI-RADS Category 3: Probably benign finding(s). Short term follow up with a bilateral breast sonog samantha in 6 months is recommended to confirm stability. Electronically signed by: Linh Macias MD (12/18/2020 2:45 PM) [id number]
== END ==
LOC: US 13:37
PROVIDERS: ATTEND Family Medicine
DX: N60.12 Diffuse cystic mastopathy of left breast (principal); N60.11 Diffuse cystic mastopathy of right breast; N64.89 Other specified disorders of breast
CPT/HCPCS: 76641-50

== ENCOUNTER → 2021-01-14 | Outpatient (CLI) | payer OTHER ==
[~2021-01-14] MED LIST changes: +CONTRAST GIVEN. MC PRN; +IOHEXOL 240 MG/ML 50ML VIAL. PO ONE; +IOHEXOL 300 MG/ML 100ML VIAL. IV ONE
--- NOTE | 2021-01-14 16:24 | RAD ---
Examination: CT of the abdomen pelvis with oral and IV contrast HISTORY: History of abdominal pain COMPARISON: 04/04/2018 Technique: Axial CT images of the abdomen pelvis were performed with oral and IV contrast. Coronal an d sagittal reformats are performed Exposure: One or more of the following individualized dose reduction techniques were utilized for thi s examination: 1. Automated exposure control 2. Adjustment of the mA and/or kV according to patient size 3. Use of iterative reconstruction technique FINDINGS: The bibasilar lungs are clear. No evidence of free air identified in the abdomen. The liver, spleen, adrenals grossly appears unremarkable. Cholecystectomy changes identified. The sto mach is mildly distended with visualized pancreas grossly appears unremarkable. The small bowel is no ndilated. Surgical changes identified in the small bowel in the right lower quadrant of the abdomen. Feces and gas noted in the colon.. Urinary bladder is mildly distended. The bilateral kidneys enhance symmetrically. Mild degenerative changes lumbar spine. IMPRESSION: 1. No acute intra-abdominal findings. 2. Cholecystectomy changes. Electronically signed by: Trino Jacobs MD (01/14/2021 4:22 PM) [id number]
== END ==
LOC: CT 14:34
PROVIDERS: ATTEND Family Medicine
DX: K31.89 Other diseases of stomach and duodenum (principal); M47.816 Spondylosis without myelopathy or radiculopathy, lumbar region; Z90.49 Acquired absence of other specified parts of digestive tract
CPT/HCPCS: 74177; Q9966; Q9967